=== PATIENT | female | born 1940 | race Asian ===

== ENCOUNTER → 2020-06-21 08:53 | Outpatient (CLI) | payer MEDICARE, MEDICAID, SELFPAY ==
[2020-06-21 09:45] LABS: Hemoglobin A1C% w Est Avg Glu 6.2 % (4.0-6.0)
[2020-06-21 10:16] LABS: Cholesterol 207 mg/dL (140-199); HDL Cholesterol 40 mg/dL (40-60); LDL Cholesterol Calculated 110 mg/dL (<100); Triglycerides 287 mg/dL (35-150)
== END ==
PROVIDERS: PCP Family Medicine; Referring Provider Family Medicine; Visit Provider Family Medicine
DX: E78.5 Hyperlipidemia, unspecified (principal); R73.9 Hyperglycemia, unspecified
CPT/HCPCS: 36415; 80061; 83036

== ENCOUNTER → 2020-07-17 09:39 | Outpatient (CLI) | payer MEDICARE, MEDICAID, SELFPAY | PROVIDERS: PCP Family Medicine; Referring Provider Family Medicine; Visit Provider Family Medicine | DX: M81.0 Age-related osteoporosis without current pathological fracture (principal); Z78.0 Asymptomatic menopausal state | CPT/HCPCS: 77080 ==

== ENCOUNTER → 2021-03-07 09:18 | Outpatient (CLI) | payer MEDICARE, MEDICAID, SELFPAY ==
[2021-03-07 09:29] LABS: Bacteria Urine None Seen; RBC Urine None Seen (0-5/HPF)
[2021-03-07 10:27] LABS: Appearance Urine UA CLEAR; Bilirubin Urine UA NEGATIVE (NEGATIVE); Color Urine UA YELLOW; Glucose Urine UA NEGATIVE (Negative); Ketones Urine UA NEGATIVE (NEGATIVE); Leukocyte Esterase Urine UA TRACE (NEGATIVE); Nitrite Urine UA NEGATIVE (Negative); Occult Blood Urine UA TRACE-LYSED (Negative); Protein Urine UA NEGATIVE (Negative); Specific Gravity Urine UA <=1.005 (1.000-1.035); Urobilinogen Urine UA 0.2 E.U./dL (0.2)
[2021-03-07 10:30] LABS: WBC Urine 5-10/HPF (0-5/HPF)
[2021-03-07 10:31] LABS: Amorphous Sediment Urine 1+; Culture Indicated Urine Specimen Cultured
[2021-03-07 10:32] LABS: Add Manual Diff / Slide Review NO; Basophils Absolute Auto 0 /uL (0-100); Basophils Percent Auto 1.1 % (0-2); Eosinophils Absolute Auto 0 /uL (0-450); Hematocrit 40.3 % (36-46); Hemoglobin 13.2 g/dL (12.0-16.0); Lymphocytes Absolute Auto 1300 /uL (1100-4500); Lymphocytes Percent Auto 31.2 % (25-40); Mean Corpuscular HGB Conc 32.6 % (30-36); Mean Corpuscular Hemoglobin 29.8 PG (26-34); Mean Corpuscular Volume 91.4 fL (80-100); Monocytes Absolute Auto 300 /uL (0-900); Monocytes Percent Auto 6.8 % (3-14); Neutrophils Absolute Auto 2500 /uL (1500-7000); Neutrophils Percent Auto 59.9 % (50-75); Platelet Count 313 X10^3/uL (150-400); Red Blood Cell Count 4.41 X10^6/uL (4.0-5.2); Red Cell Distribution Width 13.3 % (11.6-14.8); White Blood Cell Count 4.2 X10^3/uL (4.5-11.0)
[2021-03-07 11:03] LABS: Alanine Aminotransferase 14 IU/L (<35); Albumin 4.5 g/dL (3.5-5.0); Albumin Globulin Ratio 1.6 (1.0-2.8); Alkaline Phosphatase 52 U/L (38-126); Aspartate Aminotransferase 26 IU/L (14-36); BUN Creatinine Ratio 20.7 (6-22); Bilirubin Total 0.4 mg/dL (0.2-1.3); Blood Urea Nitrogen 12 mg/dL (7-17); Calcium 9.8 mg/dL (8.4-10.2); Carbon Dioxide 27 mmol/L (22-32); Chloride 105 mmol/L (98-107); Estimated Glomerular Filt Rate > 60.0 mL/min (>60); Globulin 2.8 g/dL (1.7-4.1); Glucose 130 mg/dL (80-110); HEMOLYSIS < 15 (0-50); Potassium 4.5 mmol/L (3.4-5.1); Sodium 139 mmol/L (137-145); Total Protein 7.3 g/dL (6.3-8.2)
== END ==
PROVIDERS: PCP Family Medicine; Referring Provider Family Medicine; Visit Provider Family Medicine
DX: M47.816 Spondylosis without myelopathy or radiculopathy, lumbar region (principal); R73.9 Hyperglycemia, unspecified; R29.6 Repeated falls
CPT/HCPCS: 36415; 80053; 81001; 85025; 87086

== ENCOUNTER → 2021-03-12 18:37 | Outpatient (CLI) | payer MEDICARE, MEDICAID, SELFPAY ==
--- NOTE | 2021-03-12 18:39 | DI.MRI.S_ITS ---
PROCEDURE: MR HEAD/BRAIN WO CON INDICATIONS: frequent falls, dizziness and memory loss TECHNIQUE: Non-contrast axial T1 spin echo, axial T2 fast spin echo, sagittal and axial FLAIR, coronal T2 fast spin echo, axial gradient echo, axial diffusion and ADC through the brain. COMPARISON: [facility], CT, HEAD WITHOUT CONTRAST, 11/02/2009, 8:11. FINDINGS: Image quality: Excellent. CSF spaces: Generalized ventriculomegaly slightly out of proportion to sulcal widening. Basal cisterns are patent. No extra-axial fluid collections. Brain: No intracranial bleeds or mass effects. There is cerebral volume loss for age. There are periventricular and subcortical white matter chronic small vessel ischemic changes. Brainstem appears normal. Diffusion-weighted images show no acute ischemic insults. No chronic ischemic insults. Normal intravascular flow voids are present. Skull and face: Calvarial bone marrow is normal in signal. Orbits are normal. Bilateral intraocular lens replacements noted. Sinuses: Sinuses and mastoids are clear. IMPRESSION: Moderate ventriculomegaly out of proportion to degree of cerebral atrophy, increased from the prior. Differential would include centralized atrophy and normal pressure hydrocephalus. If clinically relevant, consider additional confirmatory testing. Approved by: Gen Puetnes M.D. on 03/13/2021 at 11:50
== END ==
PROVIDERS: PCP Family Medicine; Referring Provider Family Medicine; Visit Provider Family Medicine
DX: R42 Dizziness and giddiness (principal); R41.3 Other amnesia; G93.89 Other specified disorders of brain; R29.6 Repeated falls; M47.816 Spondylosis without myelopathy or radiculopathy, lumbar region; R26.89 Other abnormalities of gait and mobility
CPT/HCPCS: 70551

== ENCOUNTER → 2022-02-28 19:20 | Outpatient (CLI) | payer MEDICARE, MEDICAID, SELFPAY ==
--- NOTE | 2022-02-28 19:23 | DI.MRI.S_ITS ---
PROCEDURE: MR CERVICAL SPINE WO CON INDICATIONS: IMPAIRED GAIT AND MOBILITY/URINARY URGENCY TECHNIQUE: Noncontrast sagittal T1 spin echo and T2 fast spin echo, sagittal STIR, foraminal oblique sagittal T2 fast spin echo, and axial gradient echo or T2 fast spin echo through the cervical spine. COMPARISON: None. FINDINGS: Image quality: Excellent. Alignment and Curvature: There is normal bony alignment. Bone Marrow: Marrow demonstrates normal overall signal. Spinal Cord: Visualized spinal cord has normal size and signal. No cerebellar tonsillar herniation. Paraspinous Soft Tissues: No paravertebral masses. Prevertebral soft tissues are normal in thickness. C2-C3: No canal stenosis. Bilateral facet hypertrophy. Mild bilateral foraminal narrowing. C3-C4: No canal stenosis. Left facet hypertrophy. Mild left foraminal narrowing. C4-C5: Mild disc bulge abutting the cord without canal stenosis. Left facet hypertrophy. Rpad-[id number]-[id number] left foraminal narrowing. C5-C6: Moderate diffuse broad-based disc protrusion flattening the cord. Moderate canal stenosis. Mild left uncovertebral joint hypertrophy. Left facet hypertrophy. Mild to moderate left foraminal narrowing. C6-C7: Disc bulge. No significant canal stenosis. Mild bilateral uncovertebral joint hypertrophy. Left facet hypertrophy. Mild left foraminal narrowing. C7-T1: No canal stenosis or foraminal stenosis. IMPRESSION: 1. 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 2. At C5-C6, there is a moderate diffuse broad-based disc protrusion flattening the cord with moderate canal stenosis. Dictated by: Ervin Cervantes M.D. on 03/01/2022 at 14:30 Approved by: Ervin Cervantes M.D. on 03/01/2022 at 14:39
== END ==
PROVIDERS: PCP Family Medicine; Referring Provider Psychiatry & Neurology Neurology; Visit Provider Psychiatry & Neurology Neurology
DX: M50.222 Other cervical disc displacement at C5-C6 level (principal); M48.02 Spinal stenosis, cervical region; M47.812 Spondylosis without myelopathy or radiculopathy, cervical region; R26.89 Other abnormalities of gait and mobility; R39.15 Urgency of urination
CPT/HCPCS: 72141

== ENCOUNTER → 2022-10-31 09:56 | Outpatient (CLI) | payer MEDICARE, MEDICAID, SELFPAY ==
[2022-10-31 11:00] LABS: Add Manual Diff / Slide Review NO; Basophils Absolute Auto 0 /uL (0-100); Eosinophils Absolute Auto 100 /uL (0-450); Eosinophils Percent Auto 1.8 % (2-4); Hematocrit 40.4 % (36-46); Hemoglobin 13.7 g/dL (12.0-16.0); Lymphocytes Absolute Auto 1800 /uL (1100-4500); Lymphocytes Percent Auto 39.9 % (25-40); Mean Corpuscular Hemoglobin 31.1 PG (26-34); Mean Corpuscular Volume 91.5 fL (80-100); Monocytes Absolute Auto 300 /uL (0-900); Monocytes Percent Auto 6.4 % (3-14); Neutrophils Absolute Auto 2200 /uL (1500-7000); Neutrophils Percent Auto 50.9 % (50-75); Platelet Count 298 X10^3/uL (150-400); Red Blood Cell Count 4.42 X10^6/uL (4.0-5.2); Red Cell Distribution Width 13.7 % (11.6-14.8); White Blood Cell Count 4.4 X10^3/uL (4.5-11.0)
[2022-10-31 11:32] LABS: Alanine Aminotransferase 15 IU/L (<35); Albumin 4.8 g/dL (3.5-5.0); Albumin Globulin Ratio 1.5 (1.0-2.8); Alkaline Phosphatase 49 U/L (38-126); Aspartate Aminotransferase 21 IU/L (14-36); BUN Creatinine Ratio 25.4 (6-22); Bilirubin Total 0.3 mg/dL (0.2-1.3); Blood Urea Nitrogen 15 mg/dL (7-17); Calcium 9.3 mg/dL (8.4-10.2); Carbon Dioxide 30 mmol/L (22-32); Chloride 101 mmol/L (98-107); Cholesterol 240 mg/dL (140-199); Estimated Glomerular Filt Rate > 60 mL/min (>60); Globulin 3.1 g/dL (1.7-4.1); Glucose 116 mg/dL (80-110); HDL Cholesterol 51 mg/dL (40-60); HEMOLYSIS < 15 (0-50); LDL Cholesterol Calculated 155 mg/dL (<100); Potassium 4.5 mmol/L (3.4-5.1); Sodium 139 mmol/L (137-145); Total Protein 7.9 g/dL (6.3-8.2); Triglycerides 170 mg/dL (35-150)
[2022-10-31 12:02] LABS: TSH w/ Reflex to FT4 1.39 uIU/mL (0.47-4.68)
[2022-11-01 06:10] LABS: Labcorp Hemoglobin (Hb) A1c 6.2 % (4.8-5.6)
== END ==
PROVIDERS: Family Provider Family Medicine; PCP Family Medicine; Referring Provider Family Medicine; Visit Provider Family Medicine
DX: E78.5 Hyperlipidemia, unspecified (principal); G91.2 (Idiopathic) normal pressure hydrocephalus; M47.816 Spondylosis without myelopathy or radiculopathy, lumbar region; R73.9 Hyperglycemia, unspecified
CPT/HCPCS: 36415; 80053; 80061; 83036; 84443; 85025

== ENCOUNTER 2022-12-10 09:00 | Outpatient (RCR) | payer MEDICARE, MEDICAID, SELFPAY ==
--- NOTE | 2022-05-14 19:10 | PT.OIE ---
Current Diagnoses Other specified disorders of brain (05/14/22) Pain in left knee (05/14/22) Muscle weakness (generalized) (05/14/22) Other abnormalities of gait and mobility (05/14/22) Repeated falls (05/14/22) Past Medical History (Last Updated 09/24/21 @ 15:54 by Oli Victoria MD) Cerebral ventriculomegaly Chronic GERD (~1999) Excessive daytime sleepiness Falls frequently Hearing loss (~2004) Helicobacter pylori (H. pylori) (~2016) Hyperglycemia Hyperlipidemia Imbalance Leg pain (~1979) Osteoarthritis of lumbar spine (~2004) Osteopenia Snoring Vertigo (~2010) Past Surgical History (Last Reviewed 06/19/20 @ 09:16 by Oli Victoria MD) Anesthesia History of cataract removal with insertion of prosthetic lens (~01/2005) Visit Care Team Role Provider Type Oli Victoria MD Attending Provider Physician Family Provider Primary Care Provider Referring Provider Specialty: Family Practice Address: [address] [place] [address] Email: [email or web address] Physical Therapy Initial Evaluation PT-OP-A Visit Information Start: 05/09/22 19:03 Freq: Status: Active Protocol: Document 05/14/22 09:50 LRN (Rec: 05/14/22 12:37 LRN [id number]) Out-Patient Physical Therapy Visit Information Visit Information Visit Type Initial Evaluation Visit Start Time 09:50 Visit Stop Time 10:40 Total Visit Minutes 50 Visit Number Evaluation Information Evaluation Date 05/14/22 Precautions Precautions s/p BEEKEEPER (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 PT-OP-B Current Condition Start: 05/09/22 19:03 Freq: Status: Active Protocol: Document 05/14/22 09:50 LRN (Rec: 05/14/22 12:37 LRN [id number]) Current Condition History of Current Condition Onset Date 03/04/22 Current Complaints Balance problem and weakness in LE's and low endurance History of Current Condition Surgery at for Ventriculoperitoneal (BEEKEEPER) shunt 03/04/22. Overnight hospitalization, then home. Has been walking around the house a couple times a day. Used to walk from home (near high school) to [employer] 4 yrs ago. Pt used to take care of house and yardwork, but not able to yet. She is walking at home around the house, touching/holding onto things for balance. Pt is walking outside by herself with a single point cane. Daughter states prior to surgery she had a magnet shuffling- Parkingson's type gait, but not since surgery. She used to fall 3x/week, but since her surgery has fallen 3 times, but balance is much improved and speed of walking has improved since surgery. Her neurologist at [facility] and at recommended physical therapy. PCP started referral. CARO was nurse practitioner at ER and now is a nurse in ER ([employer]). Works 3 -4x/weeks, therefore pt stays by self when DA works. DA is leaving State for reserve work 05/25-06/24; therefore the pt will be going to stay with her other daughter out of state. Prior Treatments and Tests None. Future Testing and Treatments Planned Dr. Kirk f/u visit @ . No future appts with PCP. Developmental History Developmental History Attended [facility] until end of February 2022 due to falls, then insurance changed. Was falling frequently prior to surgery and since surgery has fallen 3x. DA reports pt has pain in L back and L medial knee pain from previous falls (L knee pain from landing on the knee from slipping on leaves outside). Treatment Goals Patient/Caregiver Goals Pt goals per DA interpretation : - Better balance not LOB on stairs, and - Falling no more than (was 3x /week) once per month with use of assistive device as needed . - Squat (as her L knee pain allows) to reaching for low items without falling. - Join [employer] for exercise. - Walking around home without holding onto the jarrell. Prior Functional Status Baseline Function- ADL's Modified Independent Baseline Function- Mobility Modified Independent Baseline Function- Gait Walked with Hortencia Baseline Function- Other Fell 3-4x/week. Current Functional Impairments (Reported) Functional Limitations- ADL's Ambulates 15 stairs to get to bedroom using railing on both sides (except 20 ft no railing ). Has fallen down stairs ( holding her dog, who is now ). Walking around the house holding onto things Walkiing outside with SPC on concrete with a little incline ~ 1 blocks. Functional Limitations- Mobility/Gait Independent ADLs. Personal Factors Other Personal Factors That May Effect Pt qawalangin language is Setswana. Therapy/Recovery Daughter (CARO) is her wire winding machine tender. Pt lives with CARO who works 8- 12 hour days on bundle helper and is alone when DA. Pt walks alone with SPC, no life alert. Pt has fallen down stairs backwards when using stairs with carrying objects in hands . PT-OP-C Subjective Start: 05/09/22 19:03 Freq: Status: Active Protocol: Document 05/14/22 09:50 LRN (Rec: 05/14/22 12:37 LRN [id number]) Patient Questionnaires ABC- Activity Specific Balance Confidence Scale ABC Score 54.375 ABC Functional Impairment 40 to <60% Impaired (Score 41- 60) Dizziness Handicap Inventory DHI Score 196 DHI Functional Impairment 100% Impaired (Score 100) OP-PT Pain Assessment Pain Assessment Grid Paper Pain Assessment Grid Completed Yes Location L Upper Back Pain Location Details L upper back sub scap and posterior lateral trunk Intensity 4 Scale Used Numeric (0 - 10) PT-OP-D Balance Start: 05/09/22 19:03 Freq: Status: Active Protocol: Document 05/14/22 09:50 LRN (Rec: 05/14/22 12:37 LRN [id number]) Joshi Balance Assessment Evaluation Sitting to Standing Ability Independent w/out Hands Unsupported Stance Safely- 2 minutes Sitting Unsupported, Feet on Floor Safely- 2 minutes Standing to Sitting Ability Safely, Minimal Hand Use Transfer Ability Safely, Minimal Hand Use Unsupported Stance- Eyes Closed Safely, 10 seconds Unsupported Stance- Eyes Open Independent, 1 minute Reaching Forward Standing Safely, 5 inches Pick- Up Object From Floor Independent/Safe Look Behind Shoulder - Standing Shifts Weight Unilateral Turning 360 Degrees Turns slowly, but safely Unsupported Stance, Alternating Feet on (I)- 8 Steps in > 20 secs Stair Unsupported Tandem Stance Balance Lost- Step/Stand Unilateral Leg Stance Lifts Leg/Unable to Hold Total Score Joshi Total Score (out of 56 points) 44 Joshi Impairment Rating 20 to 39% Impaired (Score 34- 44) PT-OP-E Functional Tests Start: 05/09/22 19:03 Freq: Status: Active Protocol: Document 05/14/22 09:50 LRN (Rec: 05/14/22 12:37 LRN [id number]) Functional Tests 30 Second Sit to Stand Test Score 7x Comments Norm for 80-84 yo women is 9- 14x. Five Times Sit to Stand Test Score 12 Comments Norm for 80-89 yo's is 14.8 secs. Fall risk if > or = 12 secs PT-OP-G Mobility & Gait Start: 05/09/22 19:03 Freq: Status: Active Protocol: Document 05/14/22 09:50 LRN (Rec: 05/14/22 12:37 LRN [id number]) OP Mobility Evaluation Bed Mobility Supine to and from Sit Independent. PT-OP-H Neuro Start: 05/09/22 19:03 Freq: Status: Active Protocol: Document 05/14/22 09:50 LRN (Rec: 05/14/22 12:37 LRN [id number]) Sensation Evaluation Gross Sensation Gross Sensation WNL PT-OP-M Strength Start: 05/09/22 19:03 Freq: Status: Active Protocol: Document 05/14/22 09:50 LRN (Rec: 05/14/22 12:37 LRN [id number]) Knee Strength Knee Manual Muscle Testing Right Flexion (S2) 3+ Fair+ Extension (L3) 3 Fair Left Flexion (S2) 3 Fair Extension (L3) 4+ Good+ Comments L knee had previous injury Ankle/Foot Strength Ankle and Foot Manual Muscle Testing Right Dorsiflexion (L4) 3 Fair Plantarflexion (S1) 5 Normal Inversion 3 Fair Eversion (S1) 4 Good Left Dorsiflexion (L4) 3 Fair Plantarflexion (S1) 5 Normal Inversion 3 Fair Eversion (S1) 5 Normal PT-OP-Q Treatments Start: 05/09/22 19:03 Freq: Status: Active Protocol: Document 05/14/22 09:50 LRN (Rec: 05/14/22 12:37 LRN [id number]) Self-Care/Home Management Treatment Education Caregiver Education Discussed use of possible life line for pt care. Other Education Discussed results of evaluation, goals, and plan of care (POC). Pt agreeable to goals and POC. PT-OP-T Assessment and Plan Start: 05/09/22 19:03 Freq: Status: Active Protocol: Document 05/14/22 09:50 LRN (Rec: 05/14/22 12:37 LRN [id number]) Physical Therapy Assessment Rehab Potential Rehabilitation Potential Good Evaluation Complexity Number of Personal Factors/Comorbidities 1-2 Number of Body Systems Impaired 3 Clinical Presentation at Evaluation Evolving Impairments Impairments Activity Tolerance,Balance, Gait,Strength Goals Four Impairment Decreased safety with gait Impairment 5XSTS in 12 secs (fall risk >= 12 secs, norm for 80-89 yo's is 14.8 secs) TUG - to be assessed next visit (avg for 80-89 yo women is 17.2 secs) Gait speed - to be assessed next visit. Short Term Goal (STG) Improve 5XSTS score or TUG score <14 secs, indicating decreased risk of falls. STG Duration 06/30/22 Longterm Goal (LTG) Improve gait speed for safe community ambulation 2.62-3.94 ft/sec (safe to cross street gait speed of >3.9 ft/sec). LTG Duration 08/12/22 Three Impairment Balance Impairment Initial Joshi Balance Score - 44 (20-39% impaired, score 34- 44) Initial: Pt falling 3x/week or 3x/month. Short Term Goal (STG) Pt will improve balance as noted with no LOB on stairs STG Duration 06/30/22 Longterm Goal (LTG) Improve balance per Joshi Balance score >44 (1-19% impaired, score 45-55), with pt falling no more than (was 3x/week) or no more than 1x/ month with use of assistive device. LTG Duration 08/12/22 Two Impairment Decreased LE Strength/ decreased endurance Impairment Initial 30 sec chair stand is 7x (norm for 80-84 yo women is 9-14 times) Short Term Goal (STG) Improve 30 sec Chair Stand test to 9x, with pt able to walking around her home without holding onto the jarrell . STG Duration 06/30/22 Longterm Goal (LTG) Pt will be able to join [employer] [facility] for an exercise program. LTG Duration 08/12/22 One Impairment Decreased function per ABC & DHI score Impairment ABC score 54.375 (40 <60% impaired, score 41-60) Dizziness Questionnaire 196 ( 100% impaired, score 100 or more) Short Term Goal (STG) Pt will be able to Squat (as her L knee pain allows) to reaching for low items without falling. STG Duration 06/30/22 Longterm Goal (LTG) Improve function per ABC score >80 (1<20% impaired, score 81 -99). LTG Duration 08/12/22 Assessment Summary Assessment Pt presents with significant decreased in functional ability, decreased balance/ gait and decreased LE strength . The pt's qawalangin language is Setswana; therefore her daughter will act as wire winding machine tender for therapy, and because of her not able to attend therapy in 2 months, her progress is expected to be hindered and will most likely take longer than normal. The pt will benefit from skilled physical therapy to achieve the above stated goals. Physical Therapy Plan Frequency and Duration Frequency of Treatment 2x/Week Plan of Care Start Date 05/14/22 Plan of Care End Date 08/12/22 Therapeutic Interventions Therapeutic Interventions Balance Training,Gait Training ,Home Exercise Program, Neuromuscular Re-education, Patient/Caregiver Education, Self-Care/Home Management, Therapeutic Activities, Therapeutic Exercises Modalities Cold Pack/Ice Massage Next Visit Focus/Plan Next Note Type Treatment Note Next Visit Plan Assess Gait speed, TUG, hip strength and assess transfers for dizziness or vertigo and facilitate vestibular assessment if needed. Initiate LE strengthening for HEP and endurance strengthening. Pt/Caregiver education for HEP. L knee rehab, Balance, gait and stair training/strengthening for safety.
--- NOTE | 2022-05-14 19:10 | PT.OPPOC ---
Physical, Occupational & Speech Therapy At [facility] Current Diagnoses Other specified disorders of brain (05/14/22) Pain in left knee (05/14/22) Muscle weakness (generalized) (05/14/22) Other abnormalities of gait and mobility (05/14/22) Repeated falls (05/14/22) Visit Care Team Role Provider Type Oli Victoria MD Attending Provider Physician Family Provider Primary Care Provider Referring Provider Specialty: [facility] Address: [address] [place] [address] Email: [email or web address] Plan Of Care PT-OP-T Assessment and Plan Start: 05/09/22 19:03 Freq: Status: Active Protocol: Document 05/14/22 09:50 LRN (Rec: 05/14/22 12:37 LRN [id number]) Physical Therapy Assessment Rehab Potential Rehabilitation Potential Good Evaluation Complexity Number of Personal Factors/Comorbidities 1-2 Number of Body Systems Impaired 3 Clinical Presentation at Evaluation Evolving Impairments Impairments Activity Tolerance,Balance, Gait,Strength Goals Four Impairment Decreased safety with gait Impairment 5XSTS in 12 secs (fall risk >= 12 secs, norm for 80-89 yo's is 14.8 secs) TUG - to be assessed next visit (avg for 80-89 yo women is 17.2 secs) Gait speed - to be assessed next visit. Short Term Goal (STG) Improve 5XSTS score or TUG score <14 secs, indicating decreased risk of falls. STG Duration 06/30/22 [facility] Goal (LTG) Improve gait speed for safe community ambulation 2.62-3.94 ft/sec (safe to cross street gait speed of >3.9 ft/sec). LTG Duration 08/12/22 Three Impairment Balance Impairment Initial Joshi Balance Score - 44 (20-39% impaired, score 34- 44) Initial: Pt falling 3x/week or 3x/month. Short Term Goal (STG) Pt will improve balance as noted with no LOB on stairs STG Duration 06/30/22 Ceramic Capacitor Processor Goal (LTG) Improve balance per Joshi Balance score >44 (1-19% impaired, score 45-55), with pt falling no more than (was 3x/week) or no more than 1x/ month with use of assistive device. LTG Duration 08/12/22 Two Impairment Decreased LE Strength/ decreased endurance Impairment Initial 30 sec chair stand is 7x (norm for 80-84 yo women is 9-14 times) Short Term Goal (STG) Improve 30 sec Chair Stand test to 9x, with pt able to walking around her home without holding onto the jarrell . STG Duration 06/30/22 [facility] Goal (LTG) Pt will be able to join [employer] for an exercise program. LTG Duration 08/12/22 One Impairment Decreased function per ABC & DHI score Impairment ABC score 54.375 (40 <60% impaired, score 41-60) Dizziness Questionnaire 196 ( 100% impaired, score 100 or more) Short Term Goal (STG) Pt will be able to Squat (as her L knee pain allows) to reaching for low items without falling. STG Duration 06/30/22 Ceramic Capacitor Processor Goal (LTG) Improve function per ABC score >80 (1<20% impaired, score 81 -99). LTG Duration 08/12/22 Assessment Summary Assessment Pt presents with significant decreased in functional ability, decreased balance/ gait and decreased LE strength . The pt's pamunkey language is Kinyarwanda; therefore her daughter will act as junior accounting clerk for therapy, and because of her not able to attend therapy in 2 months, her progress is expected to be hindered and will most likely take longer than normal. The pt will benefit from skilled physical therapy to achieve the above stated goals. Physical Therapy Plan Frequency and Duration Frequency of Treatment 2x/Week Plan of Care Start Date 05/14/22 Plan of Care End Date 08/12/22 Therapeutic Interventions Therapeutic Interventions Balance Training,Gait Training ,Home Exercise Program, Neuromuscular Re-education, Patient/Caregiver Education, Self-Care/Home Management, Therapeutic Activities, Therapeutic Exercises Modalities Cold Pack/Ice Massage Next Visit Focus/Plan Next Note Type Treatment Note Next Visit Plan Assess Gait speed, TUG, hip strength and assess transfers for dizziness or vertigo and facilitate vestibular assessment if needed. Initiate LE strengthening for HEP and endurance strengthening. Pt/Caregiver education for HEP. L knee rehab, Balance, gait and stair training/strengthening for safety. Plan of Care Dates Plan of Care Start Date 05/14/22 Plan of Care End Date 08/12/22 Electronically Signed by: Judy Mc, PT 05/14/22 1910 If you are in agreement with this Plan of Care, please return a signed and dated copy. I have reviewed this Plan of Care and certify that the skilled therapy services above are required to meet the patient?s needs. Physician Signature Date Printed Name and Credentials Clinical Instructor Signature Printed Name and Credentials
--- NOTE | 2022-05-17 15:19 | PT.OTN ---
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) Pain in left knee (05/17/22) Muscle weakness (generalized) (05/17/22) Other abnormalities of gait and mobility (05/17/22) Repeated falls (05/17/22) Physical Therapy Treatment Note PT-OP-A Visit Information Start: 05/09/22 19:03 Freq: Status: Active Protocol: Document 05/17/22 09:50 LRN (Rec: 05/17/22 10:33 LRN [id number]) Out-Patient Physical Therapy Visit Information Visit Information Visit Type Initial Evaluation Visit Start Time 09:50 Visit Stop Time 10:30 Total Visit Minutes 40 Visit Number Evaluation Information Evaluation Date 05/14/22 Precautions Precautions s/p THERAPIST RRT (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 PT-OP-B Current Condition Start: 05/09/22 19:03 Freq: Status: Active Protocol: Document 05/14/22 09:50 LRN (Rec: 05/14/22 12:37 LRN [id number]) Current Condition History of Current Condition Onset Date 03/04/22 Current Complaints Balance problem and weakness in LE's and low endurance History of Current Condition Surgery at for Ventriculoperitoneal (THERAPIST RRT) shunt 03/04/22. Overnight hospitalization, then home. Has been walking around the house a couple times a day. Used to walk from home (near high school) to [employer] 4 yrs ago. Pt used to take care of house and yardwork, but not able to yet. She is walking at home around the house, touching/holding onto things for balance. Pt is walking outside by herself with a single point cane. Daughter states prior to surgery she had a magnet shuffling- Parkingson's type gait, but not since surgery. She used to fall 3x/week, but since her surgery has fallen 3 times, but balance is much improved and speed of walking has improved since surgery. Her neurologist at [facility] and at recommended physical therapy. PCP started referral. CARO was nurse practitioner at ER and now is a nurse in ER (PACU). Works 3 -4x/weeks, therefore pt stays by self when DA works. DA is leaving State for reserve work 05/25-06/24; therefore the pt will be going to stay with her other daughter out of state. Prior Treatments and Tests None. Future Testing and Treatments Planned Dr. Kirk f/u visit @ . No future appts with PCP. Developmental History Developmental History Attended [facility] until end of February 2022 due to falls, then insurance changed. Was falling frequently prior to surgery and since surgery has fallen 3x. DA reports pt has pain in L back and L medial knee pain from previous falls (L knee pain from landing on the knee from slipping on leaves outside). Treatment Goals Patient/Caregiver Goals Pt goals per DA interpretation : - Better balance not LOB on stairs, and - Falling no more than (was 3x /week) once per month with use of assistive device as needed . - Squat (as her L knee pain allows) to reaching for low items without falling. - Join [email or web address] for exercise. - Walking around home without holding onto the jarrell. Prior Functional Status Baseline Function- ADL's Modified Independent Baseline Function- Mobility Modified Independent Baseline Function- Gait Walked with Hortencia Baseline Function- Other Fell 3-4x/week. Current Functional Impairments (Reported) Functional Limitations- ADL's Ambulates 15 stairs to get to bedroom using railing on both sides (except 20 ft no railing ). Has fallen down stairs ( holding her dog, who is now ). Walking around the house holding onto things Walkiing outside with SPC on concrete with a little incline ~ 1 blocks. Functional Limitations- Mobility/Gait Independent ADLs. Personal Factors Other Personal Factors That May Effect Pt ak chin language is Occitan. Therapy/Recovery Daughter (CARO) is her emergency room registered nurse. Pt lives with CARO who works 8- 12 hour days on copy lathe operator and is alone when DA. Pt walks alone with SPC, no life alert. Pt has fallen down stairs backwards when using stairs with carrying objects in hands . PT-OP-C Subjective Start: 05/09/22 19:03 Freq: Status: Active Protocol: Document 05/17/22 09:50 LRN (Rec: 05/17/22 10:33 LRN [id number]) OP-PT Subjective Patient Comments Patient Comments DA states her gait is improving. PT-OP-D Balance Start: 05/09/22 19:03 Freq: Status: Active Protocol: Document 05/14/22 09:50 LRN (Rec: 05/14/22 12:37 LRN [id number]) Joshi Balance Assessment Evaluation Sitting to Standing Ability Independent w/out Hands Unsupported Stance Safely- 2 minutes Sitting Unsupported, Feet on Floor Safely- 2 minutes Standing to Sitting Ability Safely, Minimal Hand Use Transfer Ability Safely, Minimal Hand Use Unsupported Stance- Eyes Closed Safely, 10 seconds Unsupported Stance- Eyes Open Independent, 1 minute Reaching Forward Standing Safely, 5 inches Pick- Up Object From Floor Independent/Safe Look Behind Shoulder - Standing Shifts Weight Unilateral Turning 360 Degrees Turns slowly, but safely Unsupported Stance, Alternating Feet on (I)- 8 Steps in > 20 secs Stair Unsupported Tandem Stance Balance Lost- Step/Stand Unilateral Leg Stance Lifts Leg/Unable to Hold Total Score Joshi Total Score (out of 56 points) 44 Joshi Impairment Rating 20 to 39% Impaired (Score 34- 44) PT-OP-E Functional Tests Start: 05/09/22 19:03 Freq: Status: Active Protocol: Document 05/17/22 09:50 LRN (Rec: 05/17/22 10:33 LRN [id number]) Functional Tests Other Gait Speed Name of Test Gait speed Score 20'/8 sec=2.5 ft/sec Comment 2.62-3.94 ft/sec for community gait speed PT-OP-G Mobility & Gait Start: 05/09/22 19:03 Freq: Status: Active Protocol: Document 05/14/22 09:50 LRN (Rec: 05/14/22 12:37 LRN [id number]) OP Mobility Evaluation Bed Mobility Supine to and from Sit Independent. PT-OP-H Neuro Start: 05/09/22 19:03 Freq: Status: Active Protocol: Document 05/14/22 09:50 LRN (Rec: 05/14/22 12:37 LRN [id number]) Sensation Evaluation Gross Sensation Gross Sensation WNL PT-OP-M Strength Start: 05/09/22 19:03 Freq: Status: Active Protocol: Document 05/14/22 09:50 LRN (Rec: 05/14/22 12:37 LRN [id number]) Knee Strength Knee Manual Muscle Testing Right Flexion (S2) 3+ Fair+ Extension (L3) 3 Fair Left Flexion (S2) 3 Fair Extension (L3) 4+ Good+ Comments L knee had previous injury Ankle/Foot Strength Ankle and Foot Manual Muscle Testing Right Dorsiflexion (L4) 3 Fair Plantarflexion (S1) 5 Normal Inversion 3 Fair Eversion (S1) 4 Good Left Dorsiflexion (L4) 3 Fair Plantarflexion (S1) 5 Normal Inversion 3 Fair Eversion (S1) 5 Normal PT-OP-Q Treatments Start: 05/09/22 19:03 Freq: Status: Active Protocol: Document 05/17/22 09:50 LRN (Rec: 05/17/22 10:33 LRN [id number]) Therapeutic Exercises Standing Exercises Steps Reps/Minutes 4 steps x 6 Comments Extra time for pt moving slowly and cautiously. Stepping around obstacles. Comments Pt sometimes tries to sidestep around cones, changes gait mildly. Stepping over obstacles Comments Pt adjusted step lengths to step over w/RLE Gait & pivot turn Reps/Minutes 2x Comments 3 Gait with looking up/down Reps/Minutes 25' x 4 Gait with horiz head turns Reps/Minutes 25' x 4 Gait with speed change Reps/Minutes 25' x 6 Gait 20' Reps/Minutes 25' x 4 PT-OP-T Assessment and Plan Start: 05/09/22 19:03 Freq: Status: Active Protocol: Document 05/17/22 09:50 LRN (Rec: 05/17/22 10:33 LRN [id number]) Physical Therapy Assessment Goals Four Impairment Decreased safety with gait Impairment 5XSTS in 12 secs (fall risk >= 12 secs, norm for 80-89 yo's is 14.8 secs) TUG - to be assessed next visit (avg for 80-89 yo women is 17.2 secs) Gait speed - to be assessed next visit. Short Term Goal (STG) Improve 5XSTS score or TUG score <14 secs, indicating decreased risk of falls. 05/17/22: TUG (2 trials) 19 & 15 secs. STG Duration 06/30/22 progressing 05/17/22. Roll Up Machine Operator Goal (LTG) Improve gait speed for safe community ambulation 2.62-3.94 ft/sec (safe to cross street gait speed of >3.9 ft/sec). 05/17/22: Gt speed is 2.5 ft/ sec. (: Gt speed 20'/8 = 2. 5 ft/sec) LTG Duration 08/12/22 Three Impairment Balance Impairment Initial Joshi Balance Score - 44 (20-39% impaired, score 34- 44) Initial: Pt falling 3x/week or 3x/month. Short Term Goal (STG) Pt will improve balance as noted with no LOB on stairs STG Duration 06/30/22 Roll Up Machine Operator Goal (LTG) Improve balance per Joshi Balance score >44 (1-19% impaired, score 45-55), with pt falling no more than (was 3x/week) or no more than 1x/ month with use of assistive device. LTG Duration 08/12/22 Two Impairment Decreased LE Strength/ decreased endurance Impairment Initial 30 sec chair stand is 7x (norm for 80-84 yo women is 9-14 times) Short Term Goal (STG) Improve 30 sec Chair Stand test to 9x, with pt able to walking around her home without holding onto the jarrell . STG Duration 06/30/22 Roll Up Machine Operator Goal (LTG) Pt will be able to join [employer] for an exercise program. LTG Duration 08/12/22 One Impairment Decreased function per ABC & DHI score Impairment ABC score 54.375 (40 <60% impaired, score 41-60) Dizziness Questionnaire 196 ( 100% impaired, score 100 or more) Short Term Goal (STG) Pt will be able to Squat (as her L knee pain allows) to reaching for low items without falling. STG Duration 06/30/22 Roll Up Machine Operator Goal (LTG) Improve function per ABC score >80 (1<20% impaired, score 81 -99). LTG Duration 08/12/22 Assessment Summary Assessment Pt presents at risk of falling with DGI score of <19. Pt's score was 14. She showed steadiness of gait, but balance uncertainty when SLS during stairs, stepping over objects and walking. She ambs with a fairly good gait speed of 2.5 ft/sec (2.62-3.94 ft/ sec for community gait speed ( to safely cross street, gait speed of >3.9 ft/sec). Physical Therapy Plan Frequency and Duration Frequency of Treatment 2x/Week Plan of Care Start Date 05/14/22 Plan of Care End Date 08/12/22 Next Visit Focus/Plan Next Note Type Treatment Note Next Visit Plan Assess hip strength and assess transfers for dizziness or vertigo and facilitate vestibular assessment if needed. Initiate LE strengthening for HEP and endurance strengthening. Pt/ Caregiver education for HEP. L knee rehab, Balance, gait and stair training/ strengthening for safety.
--- NOTE | 2022-05-21 17:45 | PT.OTN ---
Current Diagnoses Other specified disorders of brain (05/21/22) Pain in left knee (05/21/22) Muscle weakness (generalized) (05/21/22) Other abnormalities of gait and mobility (05/21/22) Repeated falls (05/21/22) Physical Therapy Treatment Note PT-OP-A Visit Information Start: 05/09/22 19:03 Freq: Status: Active Protocol: Document 05/21/22 09:03 LRN (Rec: 05/21/22 09:49 LRN [id number]) Out-Patient Physical Therapy Visit Information Visit Information Visit Type Treatment Note Visit Note DA present to interpret Visit Start Time 09:03 Visit Stop Time 09:43 Total Visit Minutes 40 Visit Number Evaluation Information Evaluation Date 05/14/22 Precautions Precautions s/p BODILY INJURY ADJUSTER (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 PT-OP-B Current Condition Start: 05/09/22 19:03 Freq: Status: Active Protocol: Document 05/14/22 09:50 LRN (Rec: 05/14/22 12:37 LRN [id number]) Current Condition History of Current Condition Onset Date 03/04/22 Current Complaints Balance problem and weakness in LE's and low endurance History of Current Condition Surgery at for Ventriculoperitoneal (BODILY INJURY ADJUSTER) shunt 03/04/22. Overnight hospitalization, then home. Has been walking around the house a couple times a day. Used to walk from home (near high school) to [employer] 4 yrs ago. Pt used to take care of house and yardwork, but not able to yet. She is walking at home around the house, touching/holding onto things for balance. Pt is walking outside by herself with a single point cane. Daughter states prior to surgery she had a magnet shuffling- Parkingson's type gait, but not since surgery. She used to fall 3x/week, but since her surgery has fallen 3 times, but balance is much improved and speed of walking has improved since surgery. Her neurologist at [facility] and at recommended physical therapy. PCP started referral. CARO was nurse practitioner at ER and now is a nurse in ER (PACU). Works 3 -4x/weeks, therefore pt stays by self when CARO works. CARO is leaving State for reserve work 05/25-06/24; therefore the pt will be going to stay with her other daughter out of state. Prior Treatments and Tests None. Future Testing and Treatments Planned Dr. Kirk f/u visit @ . No future appts with PCP. Developmental History Developmental History Attended [facility] until end of February 2022 due to falls, then insurance changed. Was falling frequently prior to surgery and since surgery has fallen 3x. DA reports pt has pain in L back and L medial knee pain from previous falls (L knee pain from landing on the knee from slipping on leaves outside). Treatment Goals Patient/Caregiver Goals Pt goals per DA interpretation : - Better balance not LOB on stairs, and - Falling no more than (was 3x /week) once per month with use of assistive device as needed . - Squat (as her L knee pain allows) to reaching for low items without falling. - Join [employer] for exercise. - Walking around home without holding onto the jarrell. Prior Functional Status Baseline Function- ADL's Modified Independent Baseline Function- Mobility Modified Independent Baseline Function- Gait Walked with Hortencia Baseline Function- Other Fell 3-4x/week. Current Functional Impairments (Reported) Functional Limitations- ADL's Ambulates 15 stairs to get to bedroom using railing on both sides (except 20 ft no railing ). Has fallen down stairs ( holding her dog, who is now ). Walking around the house holding onto things Walkiing outside with SPC on concrete with a little incline ~ 1 blocks. Functional Limitations- Mobility/Gait Independent ADLs. Personal Factors Other Personal Factors That May Effect Pt [place] language is Croatian. Therapy/Recovery Daughter (CARO) is her electrician station assistant. Pt lives with CARO who works 8- 12 hour days on rate supervisor and is alone when DA. Pt walks alone with SPC, no life alert. Pt has fallen down stairs backwards when using stairs with carrying objects in hands . PT-OP-C Subjective Start: 05/09/22 19:03 Freq: Status: Active Protocol: Document 05/21/22 09:03 LRN (Rec: 05/21/22 09:49 LRN [id number]) OP-PT Subjective Patient Comments Patient Comments Doing exercises at home. PT-OP-D Balance Start: 05/09/22 19:03 Freq: Status: Active Protocol: Document 05/14/22 09:50 LRN (Rec: 05/14/22 12:37 LRN [id number]) Joshi Balance Assessment Evaluation Sitting to Standing Ability Independent w/out Hands Unsupported Stance Safely- 2 minutes Sitting Unsupported, Feet on Floor Safely- 2 minutes Standing to Sitting Ability Safely, Minimal Hand Use Transfer Ability Safely, Minimal Hand Use Unsupported Stance- Eyes Closed Safely, 10 seconds Unsupported Stance- Eyes Open Independent, 1 minute Reaching Forward Standing Safely, 5 inches Pick- Up Object From Floor Independent/Safe Look Behind Shoulder - Standing Shifts Weight Unilateral Turning 360 Degrees Turns slowly, but safely Unsupported Stance, Alternating Feet on (I)- 8 Steps in > 20 secs Stair Unsupported Tandem Stance Balance Lost- Step/Stand Unilateral Leg Stance Lifts Leg/Unable to Hold Total Score Joshi Total Score (out of 56 points) 44 Joshi Impairment Rating 20 to 39% Impaired (Score 34- 44) PT-OP-E Functional Tests Start: 05/09/22 19:03 Freq: Status: Active Protocol: Document 05/17/22 09:50 LRN (Rec: 05/17/22 10:33 LRN [id number]) Functional Tests Other Gait Speed Name of Test Gait speed Score 20'/8 sec=2.5 ft/sec Comment 2.62-3.94 ft/sec for community gait speed PT-OP-G Mobility & Gait Start: 05/09/22 19:03 Freq: Status: Active Protocol: Document 05/14/22 09:50 LRN (Rec: 05/14/22 12:37 LRN [id number]) OP Mobility Evaluation Bed Mobility Supine to and from Sit Independent. PT-OP-H Neuro Start: 05/09/22 19:03 Freq: Status: Active Protocol: Document 05/14/22 09:50 LRN (Rec: 05/14/22 12:37 LRN [id number]) Sensation Evaluation Gross Sensation Gross Sensation WNL PT-OP-M Strength Start: 05/09/22 19:03 Freq: Status: Active Protocol: Document 05/21/22 09:03 LRN (Rec: 05/21/22 09:49 LRN [id number]) Hip Strength Hip Manual Muscle Testing Right Flexion (L2) 3 Fair Abduction 3 Fair Left Flexion (L2) 3 Fair Abduction 3 Fair PT-OP-Q Treatments Start: 05/09/22 19:03 Freq: Status: Active Protocol: Document 05/21/22 09:03 LRN (Rec: 05/21/22 09:49 LRN [id number]) Therapeutic Exercises Supine Exercises Bridgeing Supine Exercise Name Bridging Reps/Minutes 15x 2 Hip AB Supine Exercise Name Hip AB Side bilateral Reps/Minutes 15x Comments Extra time to train for proper mvmt, phys & v cuing needed SLR Supine Exercise Name SLR Side bilateral Reps/Minutes 15x 2 each Comments L side weaker Sidelying Exercises Clamshell Sidelying Exercise Name Clamshell Side bilateral Reps/Minutes 15' Comments Much cuing anabelle to keep in proper position with knee raise. Hip AB Sidelying Exercise Name Assisted Hip AB Side bilateral Reps/Minutes 6' Comments Pt not able to sustain sidelie for ex, she rolls backward Self-Care/Home Management Treatment Education Patient Education Home Exercise Program Activities Self-Care/Home Management Activities Issued & reviewed HEP: HIp strengthening of SLR, clamshell, sup hip AB & bridging. PT-OP-T Assessment and Plan Start: 05/09/22 19:03 Freq: Status: Active Protocol: Document 05/21/22 09:03 LRN (Rec: 05/21/22 09:49 LRN [id number]) Physical Therapy Assessment Goals Four Impairment Decreased safety with gait Impairment 5XSTS in 12 secs (fall risk >= 12 secs, norm for 80-89 yo's is 14.8 secs) TUG - to be assessed next visit (avg for 80-89 yo women is 17.2 secs) Gait speed - to be assessed next visit. Short Term Goal (STG) Improve 5XSTS score or TUG score <14 secs, indicating decreased risk of falls. 05/17/22: TUG (2 trials) 19 & 15 secs. STG Duration 06/30/22 progressing 05/17/22. Global Regulatory Affairs Manager Goal (LTG) Improve gait speed for safe community ambulation 2.62-3.94 ft/sec (safe to cross street gait speed of >3.9 ft/sec). 05/17/22: Gt speed is 2.5 ft/ sec. (: Gt speed 20'/8 = 2. 5 ft/sec) LTG Duration 08/12/22 Three Impairment Balance Impairment Initial Joshi Balance Score - 44 (20-39% impaired, score 34- 44) Initial: Pt falling 3x/week or 3x/month. Short Term Goal (STG) Pt will improve balance as noted with no LOB on stairs STG Duration 06/30/22 Shelter Goal (LTG) Improve balance per Joshi Balance score >44 (1-19% impaired, score 45-55), with pt falling no more than (was 3x/week) or no more than 1x/ month with use of assistive device. LTG Duration 08/12/22 Two Impairment Decreased LE Strength/ decreased endurance Impairment Initial 30 sec chair stand is 7x (norm for 80-84 yo women is 9-14 times) Short Term Goal (STG) Improve 30 sec Chair Stand test to 9x, with pt able to walking around her home without holding onto the jarrell . STG Duration 06/30/22 Global Regulatory Affairs Manager Goal (LTG) Pt will be able to join [employer] for an exercise program. LTG Duration 08/12/22 One Impairment Decreased function per ABC & DHI score Impairment ABC score 54.375 (40 <60% impaired, score 41-60) Dizziness Questionnaire 196 ( 100% impaired, score 100 or more) Short Term Goal (STG) Pt will be able to Squat (as her L knee pain allows) to reaching for low items without falling. STG Duration 06/30/22 Shelter Goal (LTG) Improve function per ABC score >80 (1<20% impaired, score 81 -99). LTG Duration 08/12/22 Assessment Summary Assessment Pt has general weakness in hips. L hip weaker than R hip . She is very compliant during ex's and listens well to DA instructions. Pt had dizziness rolling right to left and with supine to sit. Pt would benefit from 1-2 vestibular treatments for her dizziness. Physical Therapy Plan Frequency and Duration Frequency of Treatment 2x/Week Plan of Care Start Date 05/14/22 Plan of Care End Date 08/12/22 Next Visit Focus/Plan Next Note Type Treatment Note Next Visit Plan Assess hip strength (AD, IR/ER ). Add LE strengthening (AD, rot) for HEP and LE endurance strengthening. Cont pt/ Caregiver education for HEP. L knee rehab, Balance, gait and stair training/ strengthening for safety.
--- NOTE | 2022-05-24 13:05 | PT.OTN ---
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) Pain in left knee (05/24/22) Muscle weakness (generalized) (05/24/22) Other abnormalities of gait and mobility (05/24/22) Repeated falls (05/24/22) Physical Therapy Treatment Note PT-OP-A Visit Information Start: 05/09/22 19:03 Freq: Status: Active Protocol: Document 05/24/22 09:04 LRN (Rec: 05/24/22 09:49 LRN [id number]) Out-Patient Physical Therapy Visit Information Visit Information Visit Type Treatment Note Visit Note DA present to interpret Visit Start Time 09:04 Visit Stop Time 09:48 Total Visit Minutes 44 Visit Number Evaluation Information Evaluation Date 05/14/22 Precautions Precautions s/p MEMS DEVICE SCIENTIST (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 PT-OP-B Current Condition Start: 05/09/22 19:03 Freq: Status: Active Protocol: Document 05/14/22 09:50 LRN (Rec: 05/14/22 12:37 LRN [id number]) Current Condition History of Current Condition Onset Date 03/04/22 Current Complaints Balance problem and weakness in LE's and low endurance History of Current Condition Surgery at for Ventriculoperitoneal (MEMS DEVICE SCIENTIST) shunt 03/04/22. Overnight hospitalization, then home. Has been walking around the house a couple times a day. Used to walk from home (near high school) to [employer] 4 yrs ago. Pt used to take care of house and yardwork, but not able to yet. She is walking at home around the house, touching/holding onto things for balance. Pt is walking outside by herself with a single point cane. Daughter states prior to surgery she had a magnet shuffling- Parkingson's type gait, but not since surgery. She used to fall 3x/week, but since her surgery has fallen 3 times, but balance is much improved and speed of walking has improved since surgery. Her neurologist at [facility] and at recommended physical therapy. PCP started referral. CARO was nurse practitioner at ER and now is a nurse in ER (PACU). Works 3 -4x/weeks, therefore pt stays by self when CARO works. CARO is leaving State for reserve work 05/25-06/24; therefore the pt will be going to stay with her other daughter out of state. Prior Treatments and Tests None. Future Testing and Treatments Planned Dr. Kirk f/u visit @ . No future appts with PCP. Developmental History Developmental History Attended [facility] until end of February 2022 due to falls, then insurance changed. Was falling frequently prior to surgery and since surgery has fallen 3x. DA reports pt has pain in L back and L medial knee pain from previous falls (L knee pain from landing on the knee from slipping on leaves outside). Treatment Goals Patient/Caregiver Goals Pt goals per DA interpretation : - Better balance not LOB on stairs, and - Falling no more than (was 3x /week) once per month with use of assistive device as needed . - Squat (as her L knee pain allows) to reaching for low items without falling. - Join [employer] for exercise. - Walking around home without holding onto the jarrell. Prior Functional Status Baseline Function- ADL's Modified Independent Baseline Function- Mobility Modified Independent Baseline Function- Gait Walked with Hortencia Baseline Function- Other Fell 3-4x/week. Current Functional Impairments (Reported) Functional Limitations- ADL's Ambulates 15 stairs to get to bedroom using railing on both sides (except 20 ft no railing ). Has fallen down stairs ( holding her dog, who is now ). Walking around the house holding onto things Walkiing outside with SPC on concrete with a little incline ~ 1 blocks. Functional Limitations- Mobility/Gait Independent ADLs. Personal Factors Other Personal Factors That May Effect Pt kiana language is Greenlandic. Therapy/Recovery Daughter (CARO) is her rn pacu. Pt lives with CARO who works 8- 12 hour days on folded towel machine operator and is alone when DA. Pt walks alone with SPC, no life alert. Pt has fallen down stairs backwards when using stairs with carrying objects in hands . PT-OP-C Subjective Start: 05/09/22 19:03 Freq: Status: Active Protocol: Document 05/24/22 09:04 LRN (Rec: 05/24/22 09:49 LRN [id number]) OP-PT Subjective Patient Comments Patient Comments DA reports pt doing stand<>sit ex, steps, and some walking outside. Pt will be gone until June. Pt will be with daughter who might not do the ex's with her; therefore compliance to ex's may be limited. Pt hoping to walk and do sit<>stands independently. PT-OP-D Balance Start: 05/09/22 19:03 Freq: Status: Active Protocol: Document 05/14/22 09:50 LRN (Rec: 05/14/22 12:37 LRN [id number]) Joshi Balance Assessment Evaluation Sitting to Standing Ability Independent w/out Hands Unsupported Stance Safely- 2 minutes Sitting Unsupported, Feet on Floor Safely- 2 minutes Standing to Sitting Ability Safely, Minimal Hand Use Transfer Ability Safely, Minimal Hand Use Unsupported Stance- Eyes Closed Safely, 10 seconds Unsupported Stance- Eyes Open Independent, 1 minute Reaching Forward Standing Safely, 5 inches Pick- Up Object From Floor Independent/Safe Look Behind Shoulder - Standing Shifts Weight Unilateral Turning 360 Degrees Turns slowly, but safely Unsupported Stance, Alternating Feet on (I)- 8 Steps in > 20 secs Stair Unsupported Tandem Stance Balance Lost- Step/Stand Unilateral Leg Stance Lifts Leg/Unable to Hold Total Score Joshi Total Score (out of 56 points) 44 Joshi Impairment Rating 20 to 39% Impaired (Score 34- 44) PT-OP-E Functional Tests Start: 05/09/22 19:03 Freq: Status: Active Protocol: Document 05/17/22 09:50 LRN (Rec: 05/17/22 10:33 LRN [id number]) Functional Tests Other Gait Speed Name of Test Gait speed Score 20'/8 sec=2.5 ft/sec Comment 2.62-3.94 ft/sec for community gait speed PT-OP-G Mobility & Gait Start: 05/09/22 19:03 Freq: Status: Active Protocol: Document 05/14/22 09:50 LRN (Rec: 05/14/22 12:37 LRN [id number]) OP Mobility Evaluation Bed Mobility Supine to and from Sit Independent. PT-OP-H Neuro Start: 05/09/22 19:03 Freq: Status: Active Protocol: Document 05/14/22 09:50 LRN (Rec: 05/14/22 12:37 LRN [id number]) Sensation Evaluation Gross Sensation Gross Sensation WNL PT-OP-M Strength Start: 05/09/22 19:03 Freq: Status: Active Protocol: Document 05/24/22 09:04 LRN (Rec: 05/24/22 09:49 LRN [id number]) Hip Strength Hip Manual Muscle Testing Right Flexion (L2) 3 Fair Abduction 3 Fair Adduction 5 Normal External Rotation 5 Normal Internal Rotation 3 Fair Left Flexion (L2) 3 Fair Abduction 3 Fair Adduction 3 Fair External Rotation 3 Fair Internal Rotation 3 Fair PT-OP-Q Treatments Start: 05/09/22 19:03 Freq: Status: Active Protocol: Document 05/24/22 09:04 LRN (Rec: 05/24/22 09:49 LRN [id number]) Therapeutic Exercises Sidelying Exercises Hip IR Sidelying Exercise Name Reverse Clamshell Side bilateral Reps/Minutes 10x each Clamshell Sidelying Exercise Name Clamshell Side bilateral Reps/Minutes 15' Comments Much cuing anabelle to keep in proper position with knee raise. Hip AB Sidelying Exercise Name Assisted Hip AB Side bilateral Reps/Minutes 6' Comments Pt not able to sustain sidelie for ex, she rolls backward Sitting Exercises Hip ER stretch Sitting Exercise Name L>R Hip ER stretch (knee over ankle Side bilateral Reps/Minutes 60 SH x 1 = 12 breaths. L hip ER strengthening Sitting Exercise Name Heel sliding up puente to crossing ankle over knee Side right Reps/Minutes 15x Hip IR Sitting Exercise Name Hip IR Side bilateral Reps/Minutes 15x Sit<>Stands Sitting Exercise Name Sit<>Stands from webbed chair w/o hands Reps/Minutes 15x 2 Comments Short rest btn bouts. Pt's knees bothered her, but not too tired. Self-Care/Home Management Treatment Education Patient Education Home Exercise Program Activities Self-Care/Home Management Activities Issued & reviewed HEP: Hip ER stretch in supine & sitting; Sit<>Stands. I/S only (ex handouts not available) in sitting R hip ER (crossing ankle over knee), and hip IR (swinging feet out to side). PT-OP-T Assessment and Plan Start: 05/09/22 19:03 Freq: Status: Active Protocol: Document 05/24/22 09:04 LRN (Rec: 05/24/22 09:49 LRN [id number]) Physical Therapy Assessment Goals Four Impairment Decreased safety with gait Impairment 5XSTS in 12 secs (fall risk >= 12 secs, norm for 80-89 yo's is 14.8 secs) TUG - to be assessed next visit (avg for 80-89 yo women is 17.2 secs) Gait speed - to be assessed next visit. Short Term Goal (STG) Improve 5XSTS score or TUG score <14 secs, indicating decreased risk of falls. 05/17/22: TUG (2 trials) 19 & 15 secs. STG Duration 06/30/22 progressing 05/17/22. Heater Planer Operator Goal (LTG) Improve gait speed for safe community ambulation 2.62-3.94 ft/sec (safe to cross street gait speed of >3.9 ft/sec). 05/17/22: Gt speed is 2.5 ft/ sec. (: Gt speed 20'/8 = 2. 5 ft/sec) LTG Duration 08/12/22 Three Impairment Balance Impairment Initial Joshi Balance Score - 44 (20-39% impaired, score 34- 44) Initial: Pt falling 3x/week or 3x/month. Short Term Goal (STG) Pt will improve balance as noted with no LOB on stairs STG Duration 06/30/22 Heater Planer Operator Goal (LTG) Improve balance per Joshi Balance score >44 (1-19% impaired, score 45-55), with pt falling no more than (was 3x/week) or no more than 1x/ month with use of assistive device. LTG Duration 08/12/22 Two Impairment Decreased LE Strength/ decreased endurance Impairment Initial 30 sec chair stand is 7x (norm for 80-84 yo women is 9-14 times) Short Term Goal (STG) Improve 30 sec Chair Stand test to 9x, with pt able to walking around her home without holding onto the jarrell . STG Duration 06/30/22 Heater Planer Operator Goal (LTG) Pt will be able to join [employer] for an exercise program. LTG Duration 08/12/22 One Impairment Decreased function per ABC & DHI score Impairment ABC score 54.375 (40 <60% impaired, score 41-60) Dizziness Questionnaire 196 ( 100% impaired, score 100 or more) Short Term Goal (STG) Pt will be able to Squat (as her L knee pain allows) to reaching for low items without falling. STG Duration 06/30/22 Heater Planer Operator Goal (LTG) Improve function per ABC score >80 (1<20% impaired, score 81 -99). LTG Duration 08/12/22 Assessment Summary Assessment Pt Bilateral: hip AD strength is 5/5, hip rotation strength is decreased: IR 3/5, ER 3/5L, 5/5R. Pt did much better in keeping core stable during previously issued hip ex's, but required phys & v cuing to core as well as hip for proper mvmt. R hip is stronger than L hip and moves with better mechanics during ex's. Physical Therapy Plan Frequency and Duration Frequency of Treatment 2x/Week Plan of Care Start Date 05/14/22 Plan of Care End Date 08/12/22 Next Visit Focus/Plan Next Note Type Treatment Note Next Visit Plan Pt will be returning from vacation ~ 1 month; therefore review ex's. If handouts available, add LE strengthening (rot) for HEP. Progress LE strengthening for stair ambulation safety Gait & Balance training to improve safety with gait and speed. Cont pt/Caregiver education for HEP.
--- NOTE | 2022-07-16 12:20 | PT.OTN ---
Current Diagnoses Other specified disorders of brain (07/16/22) Pain in left knee (07/16/22) Muscle weakness (generalized) (07/16/22) Other abnormalities of gait and mobility (07/16/22) Repeated falls (07/16/22) Physical Therapy Treatment Note PT-OP-A Visit Information Start: 05/09/22 19:03 Freq: Status: Active Protocol: Document 07/16/22 11:30 LRN (Rec: 07/16/22 12:19 LRN [id number]) Out-Patient Physical Therapy Visit Information Visit Information Visit Type Treatment Note Visit Note DA present to interpret Visit Start Time 11:30 Visit Stop Time 12:09 Total Visit Minutes 39 Visit Number Evaluation Information Evaluation Date 05/14/22 Precautions Precautions s/p SLACKMAN (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 PT-OP-B Current Condition Start: 05/09/22 19:03 Freq: Status: Active Protocol: Document 05/14/22 09:50 LRN (Rec: 05/14/22 12:37 LRN [id number]) Current Condition History of Current Condition Onset Date 03/04/22 Current Complaints Balance problem and weakness in LE's and low endurance History of Current Condition Surgery at for Ventriculoperitoneal (SLACKMAN) shunt 03/04/22. Overnight hospitalization, then home. Has been walking around the house a couple times a day. Used to walk from home (near high school) to [employer] 4 yrs ago. Pt used to take care of house and yardwork, but not able to yet. She is walking at home around the house, touching/holding onto things for balance. Pt is walking outside by herself with a single point cane. Daughter states prior to surgery she had a magnet shuffling- Parkingson's type gait, but not since surgery. She used to fall 3x/week, but since her surgery has fallen 3 times, but balance is much improved and speed of walking has improved since surgery. Her neurologist at [facility] and at recommended physical therapy. PCP started referral. CARO was nurse practitioner at ER and now is a nurse in ER (PACU). Works 3 -4x/weeks, therefore pt stays by self when CARO works. CARO is leaving State for reserve work 05/25-06/24; therefore the pt will be going to stay with her other daughter out of state. Prior Treatments and Tests None. Future Testing and Treatments Planned Dr. Kirk f/u visit @ . No future appts with PCP. Developmental History Developmental History Attended [facility] until end of February 2022 due to falls, then insurance changed. Was falling frequently prior to surgery and since surgery has fallen 3x. DA reports pt has pain in L back and L medial knee pain from previous falls (L knee pain from landing on the knee from slipping on leaves outside). Treatment Goals Patient/Caregiver Goals Pt goals per DA interpretation : - Better balance not LOB on stairs, and - Falling no more than (was 3x /week) once per month with use of assistive device as needed . - Squat (as her L knee pain allows) to reaching for low items without falling. - Join [employer] for exercise. - Walking around home without holding onto the jarrell. Prior Functional Status Baseline Function- ADL's Modified Independent Baseline Function- Mobility Modified Independent Baseline Function- Gait Walked with Hortencia Baseline Function- Other Fell 3-4x/week. Current Functional Impairments (Reported) Functional Limitations- ADL's Ambulates 15 stairs to get to bedroom using railing on both sides (except 20 ft no railing ). Has fallen down stairs ( holding her dog, who is now ). Walking around the house holding onto things Walkiing outside with SPC on concrete with a little incline ~ 1 blocks. Functional Limitations- Mobility/Gait Independent ADLs. Personal Factors Other Personal Factors That May Effect Pt clark's point language is Greek. Therapy/Recovery Daughter (CARO) is her buying agent. Pt lives with CARO who works 8- 12 hour days on switchboard operator supervisor and is alone when DA. Pt walks alone with SPC, no life alert. Pt has fallen down stairs backwards when using stairs with carrying objects in hands . PT-OP-C Subjective Start: 05/09/22 19:03 Freq: Status: Active Protocol: Document 07/16/22 11:30 LRN (Rec: 07/16/22 12:19 LRN [id number]) OP-PT Subjective Patient Comments Patient Comments CARO states she did walking, but not too much. Did f/u with neurolgist and was found to be normal. Recommended cont of therapy. States mother does partial falls. She has fallen once at home in kitchen, sliding on ledge of kitchen mat. PT-OP-D Balance Start: 05/09/22 19:03 Freq: Status: Active Protocol: Document 05/14/22 09:50 LRN (Rec: 05/14/22 12:37 LRN [id number]) Joshi Balance Assessment Evaluation Sitting to Standing Ability Independent w/out Hands Unsupported Stance Safely- 2 minutes Sitting Unsupported, Feet on Floor Safely- 2 minutes Standing to Sitting Ability Safely, Minimal Hand Use Transfer Ability Safely, Minimal Hand Use Unsupported Stance- Eyes Closed Safely, 10 seconds Unsupported Stance- Eyes Open Independent, 1 minute Reaching Forward Standing Safely, 5 inches Pick- Up Object From Floor Independent/Safe Look Behind Shoulder - Standing Shifts Weight Unilateral Turning 360 Degrees Turns slowly, but safely Unsupported Stance, Alternating Feet on (I)- 8 Steps in > 20 secs Stair Unsupported Tandem Stance Balance Lost- Step/Stand Unilateral Leg Stance Lifts Leg/Unable to Hold Total Score Joshi Total Score (out of 56 points) 44 Joshi Impairment Rating 20 to 39% Impaired (Score 34- 44) PT-OP-E Functional Tests Start: 05/09/22 19:03 Freq: Status: Active Protocol: Document 05/17/22 09:50 LRN (Rec: 05/17/22 10:33 LRN [id number]) Functional Tests Other Gait Speed Name of Test Gait speed Score 20'/8 sec=2.5 ft/sec Comment 2.62-3.94 ft/sec for community gait speed PT-OP-G Mobility & Gait Start: 05/09/22 19:03 Freq: Status: Active Protocol: Document 05/14/22 09:50 LRN (Rec: 05/14/22 12:37 LRN [id number]) OP Mobility Evaluation Bed Mobility Supine to and from Sit Independent. PT-OP-H Neuro Start: 05/09/22 19:03 Freq: Status: Active Protocol: Document 05/14/22 09:50 LRN (Rec: 05/14/22 12:37 LRN [id number]) Sensation Evaluation Gross Sensation Gross Sensation WNL PT-OP-M Strength Start: 05/09/22 19:03 Freq: Status: Active Protocol: Document 05/24/22 09:04 LRN (Rec: 05/24/22 09:49 LRN [id number]) Hip Strength Hip Manual Muscle Testing Right Flexion (L2) 3 Fair Abduction 3 Fair Adduction 5 Normal External Rotation 5 Normal Internal Rotation 3 Fair Left Flexion (L2) 3 Fair Abduction 3 Fair Adduction 3 Fair External Rotation 3 Fair Internal Rotation 3 Fair PT-OP-Q Treatments Start: 05/09/22 19:03 Freq: Status: Active Protocol: Document 07/16/22 11:30 LRN (Rec: 07/16/22 12:19 LRN [id number]) Therapeutic Exercises Sitting Exercises Ankle DF Sitting Exercise Name DF strengthening Side bilateral Equipment Used Lev 2 TB Reps/Minutes 15x Comments Extra time for DA to explain to pt in clark's point tongue, and to find max resist Ankle EV Sitting Exercise Name EV strengthening Side bilateral Equipment Used Lev 2 TB, towel roll btn knees Reps/Minutes 12' Comments Extra time for DA to explain to pt in clark's point tongue, and to find max resist Ankle IV Sitting Exercise Name IV strengthening Side bilateral Equipment Used Lev 2 TB Reps/Minutes 13' Comments Extra time for DA to explain to pt in clark's point tongue, and to find max resist Standing Exercises Balance-toe raises Standing Exercise Name Toe raises for balance - holding bar Equipment Used Gait Belt Reps/Minutes 15x Comments SBA guarding needed. Balance-heel raises Standing Exercise Name Heel raises for balance - hands hovering over bar Equipment Used Gait Belt Reps/Minutes 15x Comments SBA guarding needed. Heel raises Standing Exercise Name Heel raises Side bilateral Equipment Used Bar for balance safety Reps/Minutes 15x 2 Comments SBA guarding. Extra time for DA to explain to pt in clark's point tongue Self-Care/Home Management Treatment Education Patient Education Home Exercise Program Activities Self-Care/Home Management Activities Issued & reviewed HEP: TBand ankle strengthening, IV/EV/DF and standing ankle DF/PF. PT-OP-T Assessment and Plan Start: 05/09/22 19:03 Freq: Status: Active Protocol: Document 07/16/22 11:30 LRN (Rec: 07/16/22 12:19 LRN [id number]) Physical Therapy Assessment Goals Four Impairment Decreased safety with gait Impairment 5XSTS in 12 secs (fall risk >= 12 secs, norm for 80-89 yo's is 14.8 secs) TUG - assessed is 19 & 15 secs (avg for 80-89 yo women is 17.2 secs) Gait speed - assessed on is 2.5 ft/sec. Short Term Goal (STG) Improve 5XSTS score or TUG score <14 secs, indicating decreased risk of falls. 05/17/22: TUG (2 trials) 19 & 15 secs. STG Duration 06/30/22 progressing 05/17/22. Assisted Goal (LTG) Improve gait speed for safe community ambulation 2.62-3.94 ft/sec (safe to cross street gait speed of >3.9 ft/sec). 05/17/22: Gt speed is 2.5 ft/ sec. (: Gt speed 20'/8 = 2. 5 ft/sec) LTG Duration 08/12/22 Three Impairment Balance Impairment Initial Joshi Balance Score - 44 (20-39% impaired, score 34- 44) Initial: Pt falling 3x/week or 3x/month. Short Term Goal (STG) Pt will improve balance as noted with no LOB on stairs STG Duration 06/30/22 Assisted Goal (LTG) Improve balance per Joshi Balance score >44 (1-19% impaired, score 45-55), with pt falling no more than (was 3x/week) or no more than 1x/ month with use of assistive device. LTG Duration 08/12/22 Two Impairment Decreased LE Strength/ decreased endurance Impairment Initial 30 sec chair stand is 7x (norm for 80-84 yo women is 9-14 times) Short Term Goal (STG) Improve 30 sec Chair Stand test to 9x, with pt able to walking around her home without holding onto the jarrell . STG Duration 06/30/22 Assisted Goal (LTG) Pt will be able to join [facility] gym for an exercise program. LTG Duration 08/12/22 One Impairment Decreased function per ABC & DHI score Impairment ABC score 54.375 (40 <60% impaired, score 41-60) Dizziness Questionnaire 196 ( 100% impaired, score 100 or more) Short Term Goal (STG) Pt will be able to Squat (as her L knee pain allows) to reaching for low items without falling. STG Duration 06/30/22 Mobile Security Specialist Goal (LTG) Improve function per ABC score >80 (1<20% impaired, score 81 -99). LTG Duration 08/12/22 Assessment Summary Assessment Extra time needed for training of new ex's due to language difference and DA being buying agent. Pt able to perform 15 reps with ankle ex' s with DA assist translating assist. DA is very good at explaining and correcting pt through ex's. Pt has difficulty with ankle IV & standing DF. Physical Therapy Plan Frequency and Duration Frequency of Treatment 2x/Week Plan of Care Start Date 05/14/22 Plan of Care End Date 08/12/22 Next Visit Focus/Plan Next Note Type Treatment Note Next Visit Plan Review ex's from 05/24 & last issued. If handouts available, add LE strengthening (rot) for HEP. Progress LE strengthening for stair ambulation safety Gait & Balance training to improve safety with gait and speed. Cont pt/Caregiver education for HEP.
--- NOTE | 2022-07-23 12:27 | PT.OTN ---
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) Pain in left knee (07/23/22) Muscle weakness (generalized) (07/23/22) Other abnormalities of gait and mobility (07/23/22) Repeated falls (07/23/22) Physical Therapy Treatment Note PT-OP-A Visit Information Start: 05/09/22 19:03 Freq: Status: Active Protocol: Document 07/23/22 11:20 LRN (Rec: 07/23/22 12:23 LRN [id number]) Out-Patient Physical Therapy Visit Information Visit Information Visit Type Treatment Note Visit Start Time 11:20 Visit Stop Time 12:07 Total Visit Minutes 47 Visit Number Evaluation Information Evaluation Date 05/14/22 Precautions Precautions s/p DRILLER BRAKE LINING (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 PT-OP-B Current Condition Start: 05/09/22 19:03 Freq: Status: Active Protocol: Document 05/14/22 09:50 LRN (Rec: 05/14/22 12:37 LRN [id number]) Current Condition History of Current Condition Onset Date 03/04/22 Current Complaints Balance problem and weakness in LE's and low endurance History of Current Condition Surgery at for Ventriculoperitoneal (DRILLER BRAKE LINING) shunt 03/04/22. Overnight hospitalization, then home. Has been walking around the house a couple times a day. Used to walk from home (near high school) to [employer] 4 yrs ago. Pt used to take care of house and yardwork, but not able to yet. She is walking at home around the house, touching/holding onto things for balance. Pt is walking outside by herself with a single point cane. Daughter states prior to surgery she had a magnet shuffling- Parkingson's type gait, but not since surgery. She used to fall 3x/week, but since her surgery has fallen 3 times, but balance is much improved and speed of walking has improved since surgery. Her neurologist at [facility] and at recommended physical therapy. PCP started referral. CARO was nurse practitioner at ER and now is a nurse in ER (PACU). Works 3 -4x/weeks, therefore pt stays by self when DA works. DA is leaving State for reserve work 05/25-06/24; therefore the pt will be going to stay with her other daughter out of state. Prior Treatments and Tests None. Future Testing and Treatments Planned Dr. Kirk f/u visit @ . No future appts with PCP. Developmental History Developmental History Attended [place] [facility] until end of February 2022 due to falls, then insurance changed. Was falling frequently prior to surgery and since surgery has fallen 3x. DA reports pt has pain in L back and L medial knee pain from previous falls (L knee pain from landing on the knee from slipping on leaves outside). Treatment Goals Patient/Caregiver Goals Pt goals per DA interpretation : - Better balance not LOB on stairs, and - Falling no more than (was 3x /week) once per month with use of assistive device as needed . - Squat (as her L knee pain allows) to reaching for low items without falling. - Join [employer] for exercise. - Walking around home without holding onto the jarrell. Prior Functional Status Baseline Function- ADL's Modified Independent Baseline Function- Mobility Modified Independent Baseline Function- Gait Walked with Hortencia Baseline Function- Other Fell 3-4x/week. Current Functional Impairments (Reported) Functional Limitations- ADL's Ambulates 15 stairs to get to bedroom using railing on both sides (except 20 ft no railing ). Has fallen down stairs ( holding her dog, who is now ). Walking around the house holding onto things Walkiing outside with SPC on concrete with a little incline ~ 1 blocks. Functional Limitations- Mobility/Gait Independent ADLs. Personal Factors Other Personal Factors That May Effect Pt be[place] language is Amharic. Therapy/Recovery Daughter (CARO) is her jewelry engraver. Pt lives with CARO who works 8- 12 hour days on power shovel operator and is alone when DA. Pt walks alone with SPC, no life alert. Pt has fallen down stairs backwards when using stairs with carrying objects in hands . PT-OP-C Subjective Start: 05/09/22 19:03 Freq: Status: Active Protocol: Document 07/23/22 11:20 LRN (Rec: 07/23/22 12:23 LRN [id number]) OP-PT Subjective Patient Comments Patient Comments DA states pt fell fwd, 4 days ago and hit her forehead and just missed her shunt. Pt failed to lift her feet high enough to clear uneven ground and was sweeping the ground. DA feels she is piking her feet up better, but she was wearing UGGS. No c/o pain from fall, having stomach pain . PT-OP-D Balance Start: 05/09/22 19:03 Freq: Status: Active Protocol: Document 05/14/22 09:50 LRN (Rec: 05/14/22 12:37 LRN [id number]) Joshi Balance Assessment Evaluation Sitting to Standing Ability Independent w/out Hands Unsupported Stance Safely- 2 minutes Sitting Unsupported, Feet on Floor Safely- 2 minutes Standing to Sitting Ability Safely, Minimal Hand Use Transfer Ability Safely, Minimal Hand Use Unsupported Stance- Eyes Closed Safely, 10 seconds Unsupported Stance- Eyes Open Independent, 1 minute Reaching Forward Standing Safely, 5 inches Pick- Up Object From Floor Independent/Safe Look Behind Shoulder - Standing Shifts Weight Unilateral Turning 360 Degrees Turns slowly, but safely Unsupported Stance, Alternating Feet on (I)- 8 Steps in > 20 secs Stair Unsupported Tandem Stance Balance Lost- Step/Stand Unilateral Leg Stance Lifts Leg/Unable to Hold Total Score Joshi Total Score (out of 56 points) 44 Joshi Impairment Rating 20 to 39% Impaired (Score 34- 44) PT-OP-E Functional Tests Start: 05/09/22 19:03 Freq: Status: Active Protocol: Document 05/17/22 09:50 LRN (Rec: 05/17/22 10:33 LRN [id number]) Functional Tests Other Gait Speed Name of Test Gait speed Score 20'/8 sec=2.5 ft/sec Comment 2.62-3.94 ft/sec for community gait speed PT-OP-G Mobility & Gait Start: 05/09/22 19:03 Freq: Status: Active Protocol: Document 05/14/22 09:50 LRN (Rec: 05/14/22 12:37 LRN [id number]) OP Mobility Evaluation Bed Mobility Supine to and from Sit Independent. PT-OP-H Neuro Start: 05/09/22 19:03 Freq: Status: Active Protocol: Document 05/14/22 09:50 LRN (Rec: 05/14/22 12:37 LRN [id number]) Sensation Evaluation Gross Sensation Gross Sensation WNL PT-OP-M Strength Start: 05/09/22 19:03 Freq: Status: Active Protocol: Document 05/24/22 09:04 LRN (Rec: 05/24/22 09:49 LRN [id number]) Hip Strength Hip Manual Muscle Testing Right Flexion (L2) 3 Fair Abduction 3 Fair Adduction 5 Normal External Rotation 5 Normal Internal Rotation 3 Fair Left Flexion (L2) 3 Fair Abduction 3 Fair Adduction 3 Fair External Rotation 3 Fair Internal Rotation 3 Fair PT-OP-Q Treatments Start: 05/09/22 19:03 Freq: Status: Active Protocol: Document 07/23/22 11:20 LRN (Rec: 07/23/22 12:23 LRN [id number]) Therapeutic Exercises Sitting Exercises Ankle DF Sitting Exercise Name DF strengthening Side bilateral Equipment Used Lev 2 TB Reps/Minutes 15x Comments Extra time for DA to explain to pt in beaver tongue, and to move correctly Ankle EV Sitting Exercise Name EV strengthening Side bilateral Equipment Used Lev 2 TB, towel roll btn knees Reps/Minutes 30x Comments Extra time for DA to explain to pt in beaver tongue, and to move correctly Ankle IV Sitting Exercise Name IV strengthening Side bilateral Equipment Used Lev 2 TB Reps/Minutes 13' Comments Extra time for DA to explain to pt in beaver tongue, and to find max resist Hip ER stretch Sitting Exercise Name L>R Hip ER stretch (knee over ankle Side bilateral Reps/Minutes 60 SH x 1 = 12 breaths. L hip ER strengthening Sitting Exercise Name Heel sliding up puente to crossing ankle over knee Side right Reps/Minutes 5x Hip IR Sitting Exercise Name Hip IR (L>R due to weak L side) Side bilateral Equipment Used towel roll btn knees Reps/Minutes 15x 2 each, alternating leg. Comments Some phys and DA v cuing for foot lift L side Neuro Re-Education Treatment Balance Activities Ladder stepping Details Ladder stepping Equipment Athlete Ladder Reps/Duration 8 Comments Pt tends to hold RLE in ER with LOB x 2 to the right. Pt tends to lean to the right during stepping. Pt does better when looking towards feet or 2 steps ahead. She has LOB when looking straight ahead. Self-Care/Home Management Treatment Education Patient Education Home Exercise Program Activities Self-Care/Home Management Activities Issued & reviewed HEP: Sitting hip IR (foot swings out to sides with knees together). Reissued HEP due to ex HO's due to no longer has them. PT-OP-T Assessment and Plan Start: 05/09/22 19:03 Freq: Status: Active Protocol: Document 07/23/22 11:20 LRN (Rec: 07/23/22 12:23 LRN [id number]) Physical Therapy Assessment Goals Four Impairment Decreased safety with gait Impairment 5XSTS in 12 secs (fall risk >= 12 secs, norm for 80-89 yo's is 14.8 secs) TUG - assessed is 19 & 15 secs (avg for 80-89 yo women is 17.2 secs) Gait speed - assessed on is 2.5 ft/sec. Short Term Goal (STG) Improve 5XSTS score or TUG score <14 secs, indicating decreased risk of falls. 05/17/22: TUG (2 trials) 19 & 15 secs. STG Duration 06/30/22 progressing 05/17/22. Jail Goal (LTG) Improve gait speed for safe community ambulation 2.62-3.94 ft/sec (safe to cross street gait speed of >3.9 ft/sec). 05/17/22: Gt speed is 2.5 ft/ sec. (: Gt speed 20'/8 = 2. 5 ft/sec) LTG Duration 08/12/22 Three Impairment Balance Impairment Initial Joshi Balance Score - 44 (20-39% impaired, score 34- 44) Initial: Pt falling 3x/week or 3x/month. Short Term Goal (STG) Pt will improve balance as noted with no LOB on stairs STG Duration 06/30/22 Jail Goal (LTG) Improve balance per Joshi Balance score >44 (1-19% impaired, score 45-55), with pt falling no more than (was 3x/week) or no more than 1x/ month with use of assistive device. LTG Duration 08/12/22 Two Impairment Decreased LE Strength/ decreased endurance Impairment Initial 30 sec chair stand is 7x (norm for 80-84 yo women is 9-14 times) Short Term Goal (STG) Improve 30 sec Chair Stand test to 9x, with pt able to walking around her home without holding onto the jarrell . STG Duration 06/30/22 Exhibition Specialist Goal (LTG) Pt will be able to join [employer] for an exercise program. LTG Duration 08/12/22 One Impairment Decreased function per ABC & DHI score Impairment ABC score 54.375 (40 <60% impaired, score 41-60) Dizziness Questionnaire 196 ( 100% impaired, score 100 or more) Short Term Goal (STG) Pt will be able to Squat (as her L knee pain allows) to reaching for low items without falling. STG Duration 06/30/22 Exhibition Specialist Goal (LTG) Improve function per ABC score >80 (1<20% impaired, score 81 -99). LTG Duration 08/12/22 Progress Towards Goals Progress Comments Progressed HEP. Assessment Summary Assessment Pt needed review of ankle strengthening and hip stretches, and required much cuing and assist to perform ankle ex's. Pt hip ER mobility appears improved. Decreased active L Hip IR is noted. Pt subdued today. It was expressed by DA that pt was not using her L UE during gait. Pt tends to hold her RLE in ER with balance ex's and tends to fall to the right with balance ex with ladder. Physical Therapy Plan Frequency and Duration Frequency of Treatment 2x/Week Plan of Care Start Date 05/14/22 Plan of Care End Date 08/12/22 Next Visit Focus/Plan Next Note Type Treatment Note Next Visit Plan Next: Vestibular assessment to determine if involved with balance deficits. Add LE strengthening (Ext rot) for HEP and review IR strengthening. Add resisted stair stepping for LE strengthening and PRE's as tolerated on L knee. Progress LE strengthening for stair ambulation safety Gait & Balance training to improve safety with gait and speed. Try Shuttle Balance with tilt to R side to encourage pt lean to L in standing and with activity. Cont pt/Caregiver education for HEP.
--- NOTE | 2022-07-26 11:10 | PT.OTN ---
Current Diagnoses Other specified disorders of brain (07/26/22) Pain in left knee (07/26/22) Muscle weakness (generalized) (07/26/22) Other abnormalities of gait and mobility (07/26/22) Repeated falls (07/26/22) Physical Therapy Treatment Note PT-OP-A Visit Information Start: 05/09/22 19:03 Freq: Status: Active Protocol: Document 07/26/22 10:30 DCW (Rec: 07/26/22 11:10 DCW [id number]) Out-Patient Physical Therapy Visit Information Visit Information Visit Type Progress Note Visit Start Time 10:30 Visit Stop Time 10:55 Total Visit Minutes 25 Visit Number 7 Evaluation Information Evaluation Date 05/14/22 Precautions Precautions s/p SHEET MILL SUPERVISOR (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 PT-OP-B Current Condition Start: 05/09/22 19:03 Freq: Status: Active Protocol: Document 07/26/22 10:30 DCW (Rec: 07/26/22 11:10 DCW [id number]) Current Condition History of Current Condition Onset Date 03/04/22 Current Complaints Balance problem and weakness in LE's and low endurance History of Current Condition Surgery at for Ventriculoperitoneal (SHEET MILL SUPERVISOR) shunt 03/04/22. Overnight hospitalization, then home. Has been walking around the house a couple times a day. Used to walk from home (near high school) to [employer] 4 yrs ago. Pt used to take care of house and yardwork, but not able to yet. She is walking at home around the house, touching/holding onto things for balance. Pt is walking outside by herself with a single point cane. Daughter states prior to surgery she had a magnet shuffling- Parkingson's type gait, but not since surgery. She used to fall 3x/week, but since her surgery has fallen 3 times, but balance is much improved and speed of walking has improved since surgery. Her neurologist at [facility] and at recommended physical therapy. PCP started referral. CARO was nurse practitioner at ER and now is a nurse in ER (PACU). Works 3 -4x/weeks, therefore pt stays by self when DA works. DA is leaving State for reserve work 05/25-06/24; therefore the pt will be going to stay with her other daughter out of state. 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 Reports she does not do anything at the hair salon or the dentist's office that requires her to lay her head back far. Admits she has had CRM off and on from different ENTs, both when they were visiting [place] and locally. Prior Treatments and Tests None. Future Testing and Treatments Planned Dr. Kirk f/u visit @ . No future appts with PCP. Developmental History Developmental History Attended [place] [facility] until end of February 2022 due to falls, then insurance changed. Was falling frequently prior to surgery and since surgery has fallen 3x. DA reports pt has pain in L back and L medial knee pain from previous falls (L knee pain from landing on the knee from slipping on leaves outside). Treatment Goals Patient/Caregiver Goals Pt goals per DA interpretation : - Better balance not LOB on stairs, and - Falling no more than (was 3x /week) once per month with use of assistive device as needed . - Squat (as her L knee pain allows) to reaching for low items without falling. - Join [employer] for exercise. - Walking around home without holding onto the jarrell. Prior Functional Status Baseline Function- ADL's Modified Independent Baseline Function- Mobility Modified Independent Baseline Function- Gait Walked with Hortencia Baseline Function- Other Fell 3-4x/week. Current Functional Impairments (Reported) Functional Limitations- ADL's Ambulates 15 stairs to get to bedroom using railing on both sides (except 20 ft no railing ). Has fallen down stairs ( holding her dog, who is now ). Walking around the house holding onto things Walkiing outside with SPC on concrete with a little incline ~ 1 blocks. Functional Limitations- Mobility/Gait Independent ADLs. Personal Factors Other Personal Factors That May Effect Pt [place] language is Greenlandic. Therapy/Recovery Daughter (CARO) is her cycling instructor. Pt lives with CARO who works 8- 12 hour days on drip pumper and is alone when DA. Pt walks alone with SPC, no life alert. Pt has fallen down stairs backwards when using stairs with carrying objects in hands . PT-OP-C Subjective Start: 05/09/22 19:03 Freq: Status: Active Protocol: Document 07/26/22 10:30 DCW (Rec: 07/26/22 11:10 DCW [id number]) OP-PT Subjective Patient Comments Patient Comments Daughter reports she has attempted home Kathrin maneuver previously, but never sure she is doing it correctly. PT-OP-D Balance Start: 05/09/22 19:03 Freq: Status: Active Protocol: Document 05/14/22 09:50 LRN (Rec: 05/14/22 12:37 LRN [id number]) Joshi Balance Assessment Evaluation Sitting to Standing Ability Independent w/out Hands Unsupported Stance Safely- 2 minutes Sitting Unsupported, Feet on Floor Safely- 2 minutes Standing to Sitting Ability Safely, Minimal Hand Use Transfer Ability Safely, Minimal Hand Use Unsupported Stance- Eyes Closed Safely, 10 seconds Unsupported Stance- Eyes Open Independent, 1 minute Reaching Forward Standing Safely, 5 inches Pick- Up Object From Floor Independent/Safe Look Behind Shoulder - Standing Shifts Weight Unilateral Turning 360 Degrees Turns slowly, but safely Unsupported Stance, Alternating Feet on (I)- 8 Steps in > 20 secs Stair Unsupported Tandem Stance Balance Lost- Step/Stand Unilateral Leg Stance Lifts Leg/Unable to Hold Total Score Joshi Total Score (out of 56 points) 44 Joshi Impairment Rating 20 to 39% Impaired (Score 34- 44) PT-OP-E Functional Tests Start: 05/09/22 19:03 Freq: Status: Active Protocol: Document 05/17/22 09:50 LRN (Rec: 05/17/22 10:33 LRN [id number]) Functional Tests Other Gait Speed Name of Test Gait speed Score 20'/8 sec=2.5 ft/sec Comment 2.62-3.94 ft/sec for community gait speed PT-OP-G Mobility & Gait Start: 05/09/22 19:03 Freq: Status: Active Protocol: Document 05/14/22 09:50 LRN (Rec: 05/14/22 12:37 LRN [id number]) OP Mobility Evaluation Bed Mobility Supine to and from Sit Independent. PT-OP-H Neuro Start: 05/09/22 19:03 Freq: Status: Active Protocol: Document 05/14/22 09:50 LRN (Rec: 05/14/22 12:37 LRN [id number]) Sensation Evaluation Gross Sensation Gross Sensation WNL PT-OP-M Strength Start: 05/09/22 19:03 Freq: Status: Active Protocol: Document 05/24/22 09:04 LRN (Rec: 05/24/22 09:49 LRN [id number]) Hip Strength Hip Manual Muscle Testing Right Flexion (L2) 3 Fair Abduction 3 Fair Adduction 5 Normal External Rotation 5 Normal Internal Rotation 3 Fair Left Flexion (L2) 3 Fair Abduction 3 Fair Adduction 3 Fair External Rotation 3 Fair Internal Rotation 3 Fair PT-OP-O Vestibular Start: 07/26/22 10:56 Freq: Status: Active Protocol: Document 07/26/22 10:30 DCW (Rec: 07/26/22 11:10 DCW [id number]) Vestibular Assessment Screening Tests Vestibular Artery Screen Negative Visual Testing Smooth Pursuits Horizontal WNL Smooth Pursuits Vertical WNL Saccades Horizontal WNL Saccades Vertical WNL Positional Testing [place]-Hallpike Positive Left,Positive Right,< 60 Seconds Comments Vestibular Comments Pt squeezes eyes shut immediately upon becoming dizzy, does not respond to instruction to open eyes, impossible to determine directionality of any potential nystagmus. Did appear to have a stronger reaction on right side PT-OP-Q Treatments Start: 05/09/22 19:03 Freq: Status: Active Protocol: Document 07/26/22 10:30 DCW (Rec: 07/26/22 11:10 DCW [id number]) Canalithic Repositioning BPPV Treatment Kathrin Affected Canal(s) Left posterior? Reps x1 PT-OP-T Assessment and Plan Start: 05/09/22 19:03 Freq: Status: Active Protocol: Document 07/26/22 10:30 DCW (Rec: 07/26/22 11:10 DCW [id number]) Physical Therapy Assessment Impairments Impairments Activity Tolerance,Balance, Gait,Strength,Vestibular Goals Five Impairment Positive Mariela-Hallpike test bilaterally Short Term Goal (STG) Pt to test negative with all positional testing bilaterally STG Duration 08/26/22 Four Impairment Decreased safety with gait Impairment 5XSTS in 12 secs (fall risk >= 12 secs, norm for 80-89 yo's is 14.8 secs) TUG - assessed is 19 & 15 secs (avg for 80-89 yo women is 17.2 secs) Gait speed - assessed on is 2.5 ft/sec. Short Term Goal (STG) Improve 5XSTS score or TUG score <14 secs, indicating decreased risk of falls. 05/17/22: TUG (2 trials) 19 & 15 secs. STG Duration 08/26/22 progressing 05/17/22. Indian Trader Goal (LTG) Improve gait speed for safe community ambulation 2.62-3.94 ft/sec (safe to cross street gait speed of >3.9 ft/sec). 05/17/22: Gt speed is 2.5 ft/ sec. (: Gt speed 20'/8 = 2. 5 ft/sec) LTG Duration 10/24/22 Three Impairment Balance Impairment Initial Joshi Balance Score - 44 (20-39% impaired, score 34- 44) Initial: Pt falling 3x/week or 3x/month. Short Term Goal (STG) Pt will improve balance as noted with no LOB on stairs STG Duration 08/26/22 Indian Trader Goal (LTG) Improve balance per Joshi Balance score >44 (1-19% impaired, score 45-55), with pt falling no more than (was 3x/week) or no more than 1x/ month with use of assistive device. LTG Duration 10/24/22 Two Impairment Decreased LE Strength/ decreased endurance Impairment Initial 30 sec chair stand is 7x (norm for 80-84 yo women is 9-14 times) Short Term Goal (STG) Improve 30 sec Chair Stand test to 9x, with pt able to walking around her home without holding onto the jarrell . STG Duration 08/26/22 Indian Trader Goal (LTG) Pt will be able to join [facility] for an exercise program. LTG Duration 10/24/22 One Impairment Decreased function per ABC & DHI score Impairment ABC score 54.375 (40 <60% impaired, score 41-60) Dizziness Questionnaire 196 ( 100% impaired, score 100 or more) Short Term Goal (STG) Pt will be able to Squat (as her L knee pain allows) to reaching for low items without falling. STG Duration 08/26/22 Detention Goal (LTG) Improve function per ABC score >80 (1<20% impaired, score 81 -99). LTG Duration 10/24/22 Assessment Summary Assessment During left Mariela-Hallpike test, pt complained of vertigo and demonstrated nystagmus, however pt unwilling to open eyes while dizzy, resulting in impossibility of determining directionality of nystagmus. Vertigo lasted approximately 15 seconds, consistent with diagnosis of left-sided BPPV, canalithiasis-type. Attempted left modified Kathrin, but upon getting to position two, pt had a stronger reaction, but once again closed her eyes. As left-Kathrin was already in progress, completed left Kathrin . Discussed with pt and daughter, pt did not want to go through further testing or CRM at this time, would rather return at next scheduled PT appointment to perform right Kathrin. Will likely benefit from further positional testing as tolerated in an effort to better determine directionality of nystagmus. Additionally, pt should continue with already established POC to improve gait, balance, and strength. Physical Therapy Plan Frequency and Duration Frequency of Treatment 2x/Week Plan of Care Start Date 07/26/22 Plan of Care End Date 10/24/22 Therapeutic Interventions Therapeutic Interventions Balance Training,Canalithic Repositioning,Gait Training, Home Exercise Program, Neuromuscular Re-education, Patient/Caregiver Education, Self-Care/Home Management, Therapeutic Activities, Therapeutic Exercises, Vestibular Rehabilitation Modalities Cold Pack/Ice Massage Next Visit Focus/Plan Next Note Type Treatment Note Next Visit Plan Next: Further vestibular testing/positional testing, CRM as indicated, as well as home Kathrin hand-out for daughter. Add LE strengthening (Ext rot) for HEP and review IR strengthening. Add resisted stair stepping for LE strengthening and PRE's as tolerated on L knee. Progress LE strengthening for stair ambulation safety Gait & Balance training to improve safety with gait and speed. Try Shuttle Balance with tilt to R side to encourage pt lean to L in standing and with activity. Cont pt/Caregiver education for HEP.
--- NOTE | 2022-07-26 11:11 | PT.OPPOC ---
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) Pain in left knee (07/26/22) Muscle weakness (generalized) (07/26/22) Other abnormalities of gait and mobility (07/26/22) Repeated falls (07/26/22) Visit Care Team Role Provider Type Oli Victoria MD Attending Provider Physician Family Provider Primary Care Provider Referring Provider Specialty: Family Practice Address: [address] [place] [address], [facility] Email: [email or web address] Plan Of Care PT-OP-T Assessment and Plan Start: 05/09/22 19:03 Freq: Status: Active Protocol: Document 07/26/22 10:30 DCW (Rec: 07/26/22 11:10 DCW [id number]) Physical Therapy Assessment Impairments Impairments Activity Tolerance,Balance, Gait,Strength,Vestibular Goals Five Impairment Positive Madison-Hallpike test bilaterally Short Term Goal (STG) Pt to test negative with all positional testing bilaterally STG Duration 08/26/22 Four Impairment Decreased safety with gait Impairment 5XSTS in 12 secs (fall risk >= 12 secs, norm for 80-89 yo's is 14.8 secs) TUG - assessed is 19 & 15 secs (avg for 80-89 yo women is 17.2 secs) Gait speed - assessed on is 2.5 ft/sec. Short Term Goal (STG) Improve 5XSTS score or TUG score <14 secs, indicating decreased risk of falls. 05/17/22: TUG (2 trials) 19 & 15 secs. STG Duration 08/26/22 progressing 05/17/22. Gyroscope Technician Goal (LTG) Improve gait speed for safe community ambulation 2.62-3.94 ft/sec (safe to cross street gait speed of >3.9 ft/sec). 05/17/22: Gt speed is 2.5 ft/ sec. (: Gt speed 20'/8 = 2. 5 ft/sec) LTG Duration 10/24/22 Three Impairment Balance Impairment Initial Joshi Balance Score - 44 (20-39% impaired, score 34- 44) Initial: Pt falling 3x/week or 3x/month. Short Term Goal (STG) Pt will improve balance as noted with no LOB on stairs STG Duration 08/26/22 Half-Way Goal (LTG) Improve balance per Joshi Balance score >44 (1-19% impaired, score 45-55), with pt falling no more than (was 3x/week) or no more than 1x/ month with use of assistive device. LTG Duration 10/24/22 Two Impairment Decreased LE Strength/ decreased endurance Impairment Initial 30 sec chair stand is 7x (norm for 80-84 yo women is 9-14 times) Short Term Goal (STG) Improve 30 sec Chair Stand test to 9x, with pt able to walking around her home without holding onto the jarrell . STG Duration 08/26/22 Gyroscope Technician Goal (LTG) Pt will be able to join [employer] for an exercise program. LTG Duration 10/24/22 One Impairment Decreased function per ABC & DHI score Impairment ABC score 54.375 (40 <60% impaired, score 41-60) Dizziness Questionnaire 196 ( 100% impaired, score 100 or more) Short Term Goal (STG) Pt will be able to Squat (as her L knee pain allows) to reaching for low items without falling. STG Duration 08/26/22 Half-Way Goal (LTG) Improve function per ABC score >80 (1<20% impaired, score 81 -99). LTG Duration 10/24/22 Assessment Summary Assessment During left Madison-Hallpike test, pt complained of vertigo and demonstrated nystagmus, however pt unwilling to open eyes while dizzy, resulting in impossibility of determining directionality of nystagmus. Vertigo lasted approximately 15 seconds, consistent with diagnosis of left-sided BPPV, canalithiasis-type. Attempted left modified Kathrin, but upon getting to position two, pt had a stronger reaction, but once again closed her eyes. As left-Kathrin was already in progress, completed left Kathrin . Discussed with pt and daughter, pt did not want to go through further testing or CRM at this time, would rather return at next scheduled PT appointment to perform right Kathrin. Will likely benefit from further positional testing as tolerated in an effort to better determine directionality of nystagmus. Additionally, pt should continue with already established POC to improve gait, balance, and strength. Physical Therapy Plan Frequency and Duration Frequency of Treatment 2x/Week Plan of Care Start Date 07/26/22 Plan of Care End Date 10/24/22 Therapeutic Interventions Therapeutic Interventions Balance Training,Canalithic Repositioning,Gait Training, Home Exercise Program, Neuromuscular Re-education, Patient/Caregiver Education, Self-Care/Home Management, Therapeutic Activities, Therapeutic Exercises, Vestibular Rehabilitation Modalities Cold Pack/Ice Massage Next Visit Focus/Plan Next Note Type Treatment Note Next Visit Plan Next: Further vestibular testing/positional testing, CRM as indicated, as well as home Kathrin hand-out for daughter. Add LE strengthening (Ext rot) for HEP and review IR strengthening. Add resisted stair stepping for LE strengthening and PRE's as tolerated on L knee. Progress LE strengthening for stair ambulation safety Gait & Balance training to improve safety with gait and speed. Try Shuttle Balance with tilt to R side to encourage pt lean to L in standing and with activity. Cont pt/Caregiver education for HEP. Plan of Care Dates Plan of Care Start Date 07/26/22 Plan of Care End Date 10/24/22 Electronically Signed by: Elliott Hawkins, PT 07/26/22 1111 If you are in agreement with this Plan of Care, please return a signed and dated copy. I have reviewed this Plan of Care and certify that the skilled therapy services above are required to meet the patient?s needs. Physician Signature Date Printed Name and Credentials Clinical Instructor Signature Printed Name and Credentials
--- NOTE | 2022-07-29 10:54 | PT.OTN ---
Current Diagnoses Other specified disorders of brain (07/29/22) Pain in left knee (07/29/22) Muscle weakness (generalized) (07/29/22) Other abnormalities of gait and mobility (07/29/22) Repeated falls (07/29/22) Physical Therapy Treatment Note PT-OP-A Visit Information Start: 05/09/22 19:03 Freq: Status: Active Protocol: Document 07/29/22 10:30 DCW (Rec: 07/29/22 10:54 DCW [id number]) Out-Patient Physical Therapy Visit Information Visit Information Visit Type Treatment Note Visit Start Time 10:30 Visit Stop Time 10:50 Total Visit Minutes 20 Visit Number Evaluation Information Evaluation Date 05/14/22 Precautions Precautions s/p TRAVELING 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 PT-OP-B Current Condition Start: 05/09/22 19:03 Freq: Status: Active Protocol: Document 07/26/22 10:30 DCW (Rec: 07/26/22 11:10 DCW [id number]) Current Condition History of Current Condition Onset Date 03/04/22 Current Complaints Balance problem and weakness in LE's and low endurance History of Current Condition Surgery at for Ventriculoperitoneal (TRAVELING NURSE) shunt 03/04/22. Overnight hospitalization, then home. Has been walking around the house a couple times a day. Used to walk from home (near high school) to [employer] 4 yrs ago. Pt used to take care of house and yardwork, but not able to yet. She is walking at home around the house, touching/holding onto things for balance. Pt is walking outside by herself with a single point cane. Daughter states prior to surgery she had a magnet shuffling- Parkingson's type gait, but not since surgery. She used to fall 3x/week, but since her surgery has fallen 3 times, but balance is much improved and speed of walking has improved since surgery. Her neurologist at [facility] and at recommended physical therapy. PCP started referral. CARO was nurse practitioner at ER and now is a nurse in ER ([employer]). Works 3 -4x/weeks, therefore pt stays by self when DA works. DA is leaving State for reserve work 05/25-06/24; therefore the pt will be going to stay with her other daughter out of state. 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 Reports she does not do anything at the hair salon or the dentist's office that requires her to lay her head back far. Admits she has had CRM off and on from different ENTs, both when they were visiting [place] and locally. Prior Treatments and Tests None. Future Testing and Treatments Planned Dr. Kirk f/u visit @ . No future appts with PCP. Developmental History Developmental History Attended [facility] until end of February 2022 due to falls, then insurance changed. Was falling frequently prior to surgery and since surgery has fallen 3x. DA reports pt has pain in L back and L medial knee pain from previous falls (L knee pain from landing on the knee from slipping on leaves outside). Treatment Goals Patient/Caregiver Goals Pt goals per DA interpretation : - Better balance not LOB on stairs, and - Falling no more than (was 3x /week) once per month with use of assistive device as needed . - Squat (as her L knee pain allows) to reaching for low items without falling. - Join [employer] for exercise. - Walking around home without holding onto the jarrell. Prior Functional Status Baseline Function- ADL's Modified Independent Baseline Function- Mobility Modified Independent Baseline Function- Gait Walked with Hortencia Baseline Function- Other Fell 3-4x/week. Current Functional Impairments (Reported) Functional Limitations- ADL's Ambulates 15 stairs to get to bedroom using railing on both sides (except 20 ft no railing ). Has fallen down stairs ( holding her dog, who is now ). Walking around the house holding onto things Walkiing outside with SPC on concrete with a little incline ~ 1 blocks. Functional Limitations- Mobility/Gait Independent ADLs. Personal Factors Other Personal Factors That May Effect Pt [place] language is [place]. Therapy/Recovery Daughter (CARO) is her side stapler. Pt lives with CARO who works 8- 12 hour days on tapper operator and is alone when DA. Pt walks alone with SPC, no life alert. Pt has fallen down stairs backwards when using stairs with carrying objects in hands . PT-OP-C Subjective Start: 05/09/22 19:03 Freq: Status: Active Protocol: Document 07/29/22 10:30 DCW (Rec: 07/29/22 10:54 DCW [id number]) OP-PT Subjective Patient Comments Patient Comments Pt reports no dizziness since last visit. PT-OP-D Balance Start: 05/09/22 19:03 Freq: Status: Active Protocol: Document 05/14/22 09:50 LRN (Rec: 05/14/22 12:37 LRN [id number]) Joshi Balance Assessment Evaluation Sitting to Standing Ability Independent w/out Hands Unsupported Stance Safely- 2 minutes Sitting Unsupported, Feet on Floor Safely- 2 minutes Standing to Sitting Ability Safely, Minimal Hand Use Transfer Ability Safely, Minimal Hand Use Unsupported Stance- Eyes Closed Safely, 10 seconds Unsupported Stance- Eyes Open Independent, 1 minute Reaching Forward Standing Safely, 5 inches Pick- Up Object From Floor Independent/Safe Look Behind Shoulder - Standing Shifts Weight Unilateral Turning 360 Degrees Turns slowly, but safely Unsupported Stance, Alternating Feet on (I)- 8 Steps in > 20 secs Stair Unsupported Tandem Stance Balance Lost- Step/Stand Unilateral Leg Stance Lifts Leg/Unable to Hold Total Score Joshi Total Score (out of 56 points) 44 Joshi Impairment Rating 20 to 39% Impaired (Score 34- 44) PT-OP-E Functional Tests Start: 05/09/22 19:03 Freq: Status: Active Protocol: Document 05/17/22 09:50 LRN (Rec: 05/17/22 10:33 LRN [id number]) Functional Tests Other Gait Speed Name of Test Gait speed Score 20'/8 sec=2.5 ft/sec Comment 2.62-3.94 ft/sec for community gait speed PT-OP-G Mobility & Gait Start: 05/09/22 19:03 Freq: Status: Active Protocol: Document 05/14/22 09:50 LRN (Rec: 05/14/22 12:37 LRN [id number]) OP Mobility Evaluation Bed Mobility Supine to and from Sit Independent. PT-OP-H Neuro Start: 05/09/22 19:03 Freq: Status: Active Protocol: Document 05/14/22 09:50 LRN (Rec: 05/14/22 12:37 LRN [id number]) Sensation Evaluation Gross Sensation Gross Sensation WNL PT-OP-M Strength Start: 05/09/22 19:03 Freq: Status: Active Protocol: Document 05/24/22 09:04 LRN (Rec: 05/24/22 09:49 LRN [id number]) Hip Strength Hip Manual Muscle Testing Right Flexion (L2) 3 Fair Abduction 3 Fair Adduction 5 Normal External Rotation 5 Normal Internal Rotation 3 Fair Left Flexion (L2) 3 Fair Abduction 3 Fair Adduction 3 Fair External Rotation 3 Fair Internal Rotation 3 Fair PT-OP-O Vestibular Start: 07/26/22 10:56 Freq: Status: Active Protocol: Document 07/29/22 10:30 DCW (Rec: 07/29/22 10:54 DCW [id number]) Vestibular Assessment Positional Testing Mariela-Hallpike Positive Right,Negative Left,< 60 Seconds Comments Vestibular Comments Pt again had difficulty keeping eyes open during dizziness, appeared to be upbeating with right Mariela- Hallpike PT-OP-Q Treatments Start: 05/09/22 19:03 Freq: Status: Active Protocol: Document 07/29/22 10:30 DCW (Rec: 07/29/22 10:54 DCW [id number]) Canalithic Repositioning BPPV Treatment Kathrin Affected Canal(s) Right posterior? Reps x1 PT-OP-T Assessment and Plan Start: 05/09/22 19:03 Freq: Status: Active Protocol: Document 07/29/22 10:30 DCW (Rec: 07/29/22 10:54 DCW [id number]) Physical Therapy Assessment Impairments Impairments Activity Tolerance,Balance, Gait,Strength,Vestibular Goals Five Impairment Positive Mariela-Hallpike test bilaterally Short Term Goal (STG) Pt to test negative with all positional testing bilaterally STG Duration 08/26/22 Four Impairment Decreased safety with gait Impairment 5XSTS in 12 secs (fall risk >= 12 secs, norm for 80-89 yo's is 14.8 secs) TUG - assessed is 19 & 15 secs (avg for 80-89 yo women is 17.2 secs) Gait speed - assessed on is 2.5 ft/sec. Short Term Goal (STG) Improve 5XSTS score or TUG score <14 secs, indicating decreased risk of falls. 05/17/22: TUG (2 trials) 19 & 15 secs. STG Duration 08/26/22 progressing 05/17/22. Snf Goal (LTG) Improve gait speed for safe community ambulation 2.62-3.94 ft/sec (safe to cross street gait speed of >3.9 ft/sec). 05/17/22: Gt speed is 2.5 ft/ sec. (: Gt speed 20'/8 = 2. 5 ft/sec) LTG Duration 10/24/22 Three Impairment Balance Impairment Initial Joshi Balance Score - 44 (20-39% impaired, score 34- 44) Initial: Pt falling 3x/week or 3x/month. Short Term Goal (STG) Pt will improve balance as noted with no LOB on stairs STG Duration 08/26/22 Circulation Crew Leader Goal (LTG) Improve balance per Joshi Balance score >44 (1-19% impaired, score 45-55), with pt falling no more than (was 3x/week) or no more than 1x/ month with use of assistive device. LTG Duration 10/24/22 Two Impairment Decreased LE Strength/ decreased endurance Impairment Initial 30 sec chair stand is 7x (norm for 80-84 yo women is 9-14 times) Short Term Goal (STG) Improve 30 sec Chair Stand test to 9x, with pt able to walking around her home without holding onto the jarrell . STG Duration 08/26/22 Snf Goal (LTG) Pt will be able to join [facility] for an exercise program. LTG Duration 10/24/22 One Impairment Decreased function per ABC & DHI score Impairment ABC score 54.375 (40 <60% impaired, score 41-60) Dizziness Questionnaire 196 ( 100% impaired, score 100 or more) Short Term Goal (STG) Pt will be able to Squat (as her L knee pain allows) to reaching for low items without falling. STG Duration 08/26/22 Snf Goal (LTG) Improve function per ABC score >80 (1<20% impaired, score 81 -99). LTG Duration 10/24/22 Assessment Summary Assessment Right Mariela-Hallpike testing was positive today, although unable to determine for sure direction of nystagmus. Performed right modified Kathrin , pt reported symptoms in first and third positions, which is typically indicative of a successful treatment. Pt not particularly interested in further testing during today's session. Plan to return to prior POC with balance and strengthening, continue with vestibular rehabilitation as needed, per pt subjective reports. Did give pt's daughter hand out and discussed home Kathrin maneuver. Physical Therapy Plan Frequency and Duration Frequency of Treatment 2x/Week Plan of Care Start Date 07/26/22 Plan of Care End Date 10/24/22 Therapeutic Interventions Therapeutic Interventions Balance Training,Canalithic Repositioning,Gait Training, Home Exercise Program, Neuromuscular Re-education, Patient/Caregiver Education, Self-Care/Home Management, Therapeutic Activities, Therapeutic Exercises, Vestibular Rehabilitation Modalities Cold Pack/Ice Massage Next Visit Focus/Plan Next Note Type Treatment Note Next Visit Plan Next: Add LE strengthening ( Ext rot) for HEP and review IR strengthening. Add resisted stair stepping for LE strengthening and PRE's as tolerated on L knee. Progress LE strengthening for stair ambulation safety Gait & Balance training to improve safety with gait and speed. Try Shuttle Balance with tilt to R side to encourage pt lean to L in standing and with activity. Cont pt/Caregiver education for HEP.
--- NOTE | 2022-08-01 17:41 | PT.OTN ---
Current Diagnoses Other specified disorders of brain (08/01/22) Pain in left knee (08/01/22) Muscle weakness (generalized) (08/01/22) Other abnormalities of gait and mobility (08/01/22) Repeated falls (08/01/22) Physical Therapy Treatment Note PT-OP-A Visit Information Start: 05/09/22 19:03 Freq: Status: Active Protocol: Document 08/01/22 08:17 LRN (Rec: 08/01/22 09:03 LRN [id number]) Out-Patient Physical Therapy Visit Information Visit Information Visit Type Treatment Note Visit Note 2 after PN Visit Start Time 08:17 Visit Stop Time 08:55 Total Visit Minutes 38 Visit Number Evaluation Information Evaluation Date 05/14/22 Precautions Precautions s/p HEEL ATTACHER (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 PT-OP-B Current Condition Start: 05/09/22 19:03 Freq: Status: Active Protocol: Document 07/26/22 10:30 DCW (Rec: 07/26/22 11:10 DCW [id number]) Current Condition History of Current Condition Onset Date 03/04/22 Current Complaints Balance problem and weakness in LE's and low endurance History of Current Condition Surgery at for Ventriculoperitoneal (HEEL ATTACHER) shunt 03/04/22. Overnight hospitalization, then home. Has been walking around the house a couple times a day. Used to walk from home (near high school) to [employer] 4 yrs ago. Pt used to take care of house and yardwork, but not able to yet. She is walking at home around the house, touching/holding onto things for balance. Pt is walking outside by herself with a single point cane. Daughter states prior to surgery she had a magnet shuffling- Parkingson's type gait, but not since surgery. She used to fall 3x/week, but since her surgery has fallen 3 times, but balance is much improved and speed of walking has improved since surgery. Her neurologist at [facility] and at recommended physical therapy. PCP started referral. CARO was nurse practitioner at ER and now is a nurse in ER ([employer]). Works 3 -4x/weeks, therefore pt stays by self when CARO works. CARO is leaving [place] for reserve work 05/25-06/24; therefore the pt will be going to stay with her other daughter out of state. 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 Reports she does not do anything at the hair salon or the dentist's office that requires her to lay her head back far. Admits she has had CRM off and on from different ENTs, both when they were visiting [place] and locally. Prior Treatments and Tests None. Future Testing and Treatments Planned Dr. Kirk f/u visit @ . No future appts with PCP. Developmental History Developmental History Attended [place] [facility] until end of February 2022 due to falls, then insurance changed. Was falling frequently prior to surgery and since surgery has fallen 3x. DA reports pt has pain in L back and L medial knee pain from previous falls (L knee pain from landing on the knee from slipping on leaves outside). Treatment Goals Patient/Caregiver Goals Pt goals per DA interpretation : - Better balance not LOB on stairs, and - Falling no more than (was 3x /week) once per month with use of assistive device as needed . - Squat (as her L knee pain allows) to reaching for low items without falling. - Join [employer] for exercise. - Walking around home without holding onto the jarrell. Prior Functional Status Baseline Function- ADL's Modified Independent Baseline Function- Mobility Modified Independent Baseline Function- Gait Walked with Hortencia Baseline Function- Other Fell 3-4x/week. Current Functional Impairments (Reported) Functional Limitations- ADL's Ambulates 15 stairs to get to bedroom using railing on both sides (except 20 ft no railing ). Has fallen down stairs ( holding her dog, who is now ). Walking around the house holding onto things Walkiing outside with SPC on concrete with a little incline ~ 1 blocks. Functional Limitations- Mobility/Gait Independent ADLs. Personal Factors Other Personal Factors That May Effect Pt timbi-sha shoshone language is Faroese. Therapy/Recovery Daughter (CARO) is her wind turbine machinist. Pt lives with CARO who works 8- 12 hour days on buffing machine operator and is alone when DA. Pt walks alone with SPC, no life alert. Pt has fallen down stairs backwards when using stairs with carrying objects in hands . PT-OP-C Subjective Start: 05/09/22 19:03 Freq: Status: Active Protocol: Document 08/01/22 08:17 LRN (Rec: 08/01/22 09:03 LRN [id number]) OP-PT Subjective Patient Comments Patient Comments Pt DA states pt reports feeling better, less complaints first in AM. PT-OP-D Balance Start: 05/09/22 19:03 Freq: Status: Active Protocol: Document 08/01/22 08:17 LRN (Rec: 08/01/22 17:37 LRN [id number]) Joshi Balance Assessment Evaluation Sitting to Standing Ability Independent w/out Hands Unsupported Stance Safely- 2 minutes Sitting Unsupported, Feet on Floor Safely- 2 minutes Standing to Sitting Ability Safely, Minimal Hand Use Transfer Ability Safely, Minimal Hand Use Unsupported Stance- Eyes Closed Safely, 10 seconds Unsupported Stance- Eyes Open Independent, 1 minute Reaching Forward Standing Confidently, 10 inches Pick- Up Object From Floor Independent/Safe Look Behind Shoulder - Standing Shifts Weight Well Turning 360 Degrees Turns slowly, but safely Unsupported Stance, Alternating Feet on (I)- 8 Steps in 20 secs Stair Unsupported Tandem Stance Balance Lost- Step/Stand Unilateral Leg Stance Lifts Leg/Unable to Hold Total Score Joshi Total Score (out of 56 points) 47 Joshi Impairment Rating 1 to 19% Impaired (Score 45-55 ) PT-OP-E Functional Tests Start: 05/09/22 19:03 Freq: Status: Active Protocol: Document 08/01/22 08:17 LRN (Rec: 08/01/22 09:03 LRN [id number]) Functional Tests 30 Second Sit to Stand Test Score 11 Comments Norm for 80-84 yo women is 9- 14x. Five Times Sit to Stand Test Score 19, 12 secs Comments Norm for 80-89 yo's is 14.8 secs. Fall risk if > or = 12 secs Timed Up and Go (TUG) Score 12 Comments No use of hands, from webbed chairl, slip ons. TUG Impairment Rating 20 to <40% Impaired (Score 12- 13) Other Gait Speed Name of Test Gait speed Score 20'/6 = 3.33 ft/sec Comment 2.62-3.94 ft/sec for community gait speed PT-OP-G Mobility & Gait Start: 05/09/22 19:03 Freq: Status: Active Protocol: Document 05/14/22 09:50 LRN (Rec: 05/14/22 12:37 LRN [id number]) OP Mobility Evaluation Bed Mobility Supine to and from Sit Independent. PT-OP-H Neuro Start: 05/09/22 19:03 Freq: Status: Active Protocol: Document 05/14/22 09:50 LRN (Rec: 05/14/22 12:37 LRN [id number]) Sensation Evaluation Gross Sensation Gross Sensation WNL PT-OP-M Strength Start: 05/09/22 19:03 Freq: Status: Active Protocol: Document 05/24/22 09:04 LRN (Rec: 05/24/22 09:49 LRN [id number]) Hip Strength Hip Manual Muscle Testing Right Flexion (L2) 3 Fair Abduction 3 Fair Adduction 5 Normal External Rotation 5 Normal Internal Rotation 3 Fair Left Flexion (L2) 3 Fair Abduction 3 Fair Adduction 3 Fair External Rotation 3 Fair Internal Rotation 3 Fair PT-OP-O Vestibular Start: 07/26/22 10:56 Freq: Status: Active Protocol: Document 07/29/22 10:30 DCW (Rec: 07/29/22 10:54 DCW [id number]) Vestibular Assessment Positional Testing Mariela-Hallpike Positive Right,Negative Left,< 60 Seconds Comments Vestibular Comments Pt again had difficulty keeping eyes open during dizziness, appeared to be upbeating with right [place]- Hallpike PT-OP-Q Treatments Start: 05/09/22 19:03 Freq: Status: Active Protocol: Document 08/01/22 08:17 LRN (Rec: 08/01/22 17:37 LRN [id number]) Therapeutic Exercises Standing Exercises Gait 20' Reps/Minutes 25' x 4 Comments Extra time for DA to interpret explanation of activity in pt 's timbi-[place] shosh[place] langu Neuro Re-Education Treatment Balance Activities Foot taps Details Alternating foot taps on 6 step Reps/Duration 8x 2 Comments Extra time for DA to interpret explanation of activity in pt 's timbi-sha shoshone language. 360 deg Turning Details 360 deg turning Surface level Comments Extra time for DA to interpret explanation of activity in pt 's timbi-sha shoshone language. Weight shifting Details Looking behind, wgt shift with progressive increase in shifting of weight Surface level Comments Extra time for DA to interpret explanation of activity in pt 's timbi-[place] shoshone language. Standing balance Details EO, EC, feet together, feet apart Surface Level Comments Extra time for DA to interpret explanation of activity in pt 's timbi-[place] shosh[place] language. Reaching Details Reaching forward and onto floor Surface Level Reps/Duration 2x Comments Extra time for DA to interpret explanation of activity in pt 's timbi-sha shoshone language. PT-OP-T Assessment and Plan Start: 05/09/22 19:03 Freq: Status: Active Protocol: Document 08/01/22 08:17 LRN (Rec: 08/01/22 09:03 LRN [id number]) Physical Therapy Assessment Goals Five Impairment Positive [place]-Hallpike test bilaterally Short Term Goal (STG) Pt to test negative with all positional testing bilaterally STG Duration 08/26/22 Four Impairment Decreased safety with gait Impairment 5XSTS in 12 secs (fall risk >= 12 secs, norm for 80-89 yo's is 14.8 secs) TUG - assessed is 19 & 15 secs (avg for 80-89 yo women is 17.2 secs) Gait speed - assessed on is 2.5 ft/sec. Short Term Goal (STG) Improve 5XSTS score or TUG score <14 secs, indicating decreased risk of falls. 05/17/22: TUG (2 trials) 19 & 15 secs. 08/01/22: TUG 12 secs. STG Duration 08/26/22 (08/01/22: MET GOAL) Senior Care Goal (LTG) Improve gait speed for safe community ambulation 2.62-3.94 ft/sec (safe to cross street gait speed of >3.9 ft/sec). 05/17/22: Gt speed is 2.5 ft/ sec. (: Gt speed 20'/8 = 2. 5 ft/sec) 08/01/22: Gt speed 20'/6 = 3. 33 ft/sec. LTG Duration 10/24/22 (08/01/22: MET GOAL) Three Impairment Balance Impairment Initial Joshi Balance Score - 44 (20-39% impaired, score 34- 44) Initial: Pt falling 3x/week or 3x/month. Short Term Goal (STG) Pt will improve balance as noted with no LOB on stairs STG Duration 08/26/22 Assistant Case Manager Goal (LTG) Improve balance per Joshi Balance score >44 (1-19% impaired, score 45-55), with pt falling no more than (was 3x/week) or no more than 1x/ month with use of assistive device. 08/01/22: JOSHI score 47 (1-19% impaired, score 45-55). LTG Duration 10/24/22 (08/01/22: JOSHI score goal met) Two Impairment Decreased LE Strength/ decreased endurance Impairment Initial 30 sec chair stand is 7x (norm for 80-84 yo women is 9-14 times) Short Term Goal (STG) Improve 30 sec Chair Stand test to 9x, with pt able to walking around her home without holding onto the jarrell . 08/01/22: 30 Sec Chair Stand test - 11 reps. Pt walking around her home sometimes reaching out. STG Duration 08/26/22 (08/11/22: Partially met goal) Senior Care Goal (LTG) Pt will be able to join [employer] for an exercise program. LTG Duration 10/24/22 One Impairment Decreased function per ABC & DHI score Impairment ABC score 54.375 (40 <60% impaired, score 41-60) Dizziness Questionnaire 196 ( 100% impaired, score 100 or more) Short Term Goal (STG) Pt will be able to Squat (as her L knee pain allows) to reaching for low items without falling. STG Duration 08/26/22 Assistant Case Manager Goal (LTG) Improve function per ABC score >80 (1<20% impaired, score 81 -99). LTG Duration 10/24/22 Assessment Summary Assessment Areas of focus for next 4 weeks should be on balance, coordination, and LE strengthening. Pt gait speed is much improved and shows appropriate speed for community ambulation. 5TSTS test initially indicated pt at risk of falling, but with further explanation by daughter, the pt was able to achieve a score that placed her at borderline risk of falling. Her Balance score improved from 44 to 47, indicating less impairement. Pt had some difficulty lifting her foot for foot taps on stairs, probably due to poor balance or decreased proprioception and coordination of movement. Physical Therapy Plan Frequency and Duration Frequency of Treatment 2x/Week Plan of Care Start Date 07/26/22 Plan of Care End Date 10/24/22 Next Visit Focus/Plan Next Note Type Treatment Note Next Visit Plan Next: Assess goal #1 & 3 function. Add LE strengthening (ER) for HEP and review IR strengthening. Add resisted stair stepping for LE strengthening and PRE's as tolerated on L knee. Progress Balalnce/Coordination /LE strengthening for stair ambulation safety Gait & Balance training to improve safety with gait and speed. Try Shuttle Balance with tilt to R side to encourage pt lean to L in standing and with activity. Cont pt/Caregiver education for HEP.
--- NOTE | 2022-09-17 18:06 | PT.OTN ---
Current Diagnoses Other specified disorders of brain (09/17/22) Pain in left knee (09/17/22) Muscle weakness (generalized) (09/17/22) Other abnormalities of gait and mobility (09/17/22) Repeated falls (09/17/22) Physical Therapy Treatment Note PT-OP-A Visit Information Start: 05/09/22 19:03 Freq: Status: Active Protocol: Document 09/17/22 13:04 LRN (Rec: 09/17/22 13:52 LRN [id number]) Out-Patient Physical Therapy Visit Information Visit Information Visit Type Progress Note Visit Start Time 13:04 Visit Stop Time 13:50 Total Visit Minutes 46 Visit Number Evaluation Information Evaluation Date 05/14/22 Precautions Precautions 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 PT-OP-B Current Condition Start: 05/09/22 19:03 Freq: Status: Active Protocol: Document 07/26/22 10:30 DCW (Rec: 07/26/22 11:10 DCW [id number]) Current Condition History of Current Condition Onset Date 03/04/22 Current Complaints Balance problem and weakness in LE's and low endurance History of Current Condition Surgery at for Ventriculoperitoneal (PLANT TAXONOMIST) shunt 03/04/22. Overnight hospitalization, then home. Has been walking around the house a couple times a day. Used to walk from home (near high school) to [employer] 4 yrs ago. Pt used to take care of house and yardwork, but not able to yet. She is walking at home around the house, touching/holding onto things for balance. Pt is walking outside by herself with a single point cane. Daughter states prior to surgery she had a magnet shuffling- Parkingson's type gait, but not since surgery. She used to fall 3x/week, but since her surgery has fallen 3 times, but balance is much improved and speed of walking has improved since surgery. Her neurologist at [facility] and at recommended physical therapy. PCP started referral. CARO was nurse practitioner at ER and now is a nurse in ER ([employer]). Works 3 -4x/weeks, therefore pt stays by self when DA works. DA is leaving [place] for reserve work 05/25-06/24; therefore the pt will be going to stay with her other daughter out of state. 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 Reports she does not do anything at the hair salon or the dentist's office that requires her to lay her head back far. Admits she has had CRM off and on from different ENTs, both when they were visiting [place] and locally. Prior Treatments and Tests None. Future Testing and Treatments Planned Dr. Kirk f/u visit @ . No future appts with PCP. Developmental History Developmental History Attended [facility] until end of February 2022 due to falls, then insurance changed. Was falling frequently prior to surgery and since surgery has fallen 3x. DA reports pt has pain in L back and L medial knee pain from previous falls (L knee pain from landing on the knee from slipping on leaves outside). Treatment Goals Patient/Caregiver Goals Pt goals per DA interpretation : - Better balance not LOB on stairs, and - Falling no more than (was 3x /week) once per month with use of assistive device as needed . - Squat (as her L knee pain allows) to reaching for low items without falling. - Join [employer] for exercise. - Walking around home without holding onto the jarrell. Prior Functional Status Baseline Function- ADL's Modified Independent Baseline Function- Mobility Modified Independent Baseline Function- Gait Walked with Hortencia Baseline Function- Other Fell 3-4x/week. Current Functional Impairments (Reported) Functional Limitations- ADL's Ambulates 15 stairs to get to bedroom using railing on both sides (except 20 ft no railing ). Has fallen down stairs ( holding her dog, who is now ). Walking around the house holding onto things Walkiing outside with SPC on concrete with a little incline ~ 1 blocks. Functional Limitations- Mobility/Gait Independent ADLs. Personal Factors Other Personal Factors That May Effect Pt [place] language is Hebrew. Therapy/Recovery Daughter (CARO) is her reconciliation accountant. Pt lives with CARO who works 8- 12 hour days on director of operations home health and is alone when DA. Pt walks alone with SPC, no life alert. Pt has fallen down stairs backwards when using stairs with carrying objects in hands . PT-OP-C Subjective Start: 05/09/22 19:03 Freq: Status: Active Protocol: Document 09/17/22 13:04 LRN (Rec: 09/17/22 13:52 LRN [id number]) OP-PT Subjective Patient Comments Patient Comments States they just got back from [place] last night and pt hasn 't been able to go out and walk due to bad weather. No dizziness. Not able to do the exercises, but did functional things. Patient Questionnaires ABC- Activity Specific Balance Confidence Scale ABC Score 56.25 ABC Functional Impairment 40 to <60% Impaired (Score 41- 60) PT-OP-D Balance Start: 05/09/22 19:03 Freq: Status: Active Protocol: Document 09/17/22 13:04 LRN (Rec: 09/17/22 13:52 LRN [id number]) Balance Tests Single Limb Standing Single Limb- Right 1 Single Limb- Left 2 Tandem Tandem Standing 1 Joshi Balance Assessment Evaluation Sitting to Standing Ability Independent w/out Hands Unsupported Stance Safely- 2 minutes Sitting Unsupported, Feet on Floor Safely- 2 minutes Standing to Sitting Ability Safely, Minimal Hand Use Transfer Ability Safely, Minimal Hand Use Unsupported Stance- Eyes Closed Safely, 10 seconds Unsupported Stance- Eyes Open Independent, 1 minute Reaching Forward Standing Confidently, 10 inches Pick- Up Object From Floor Independent/Safe Look Behind Shoulder - Standing Shifts Weight Well Turning 360 Degrees Turns slowly, but safely Unsupported Stance, Alternating Feet on (I)- 8 Steps in 20 secs Stair Unsupported Tandem Stance Balance Lost- Step/Stand Unilateral Leg Stance Lifts Leg/Unable to Hold Total Score Joshi Total Score (out of 56 points) 47 Joshi Impairment Rating 1 to 19% Impaired (Score 45-55 ) PT-OP-E Functional Tests Start: 05/09/22 19:03 Freq: Status: Active Protocol: Document 08/01/22 08:17 LRN (Rec: 08/01/22 09:03 LRN [id number]) Functional Tests 30 Second Sit to Stand Test Score 11 Comments Norm for 80-84 yo women is 9- 14x. Five Times Sit to Stand Test Score 19, 12 secs Comments Norm for 80-89 yo's is 14.8 secs. Fall risk if > or = 12 secs Timed Up and Go (TUG) Score 12 Comments No use of hands, from webbed chairl, slip ons. TUG Impairment Rating 20 to <40% Impaired (Score 12- 13) Other Gait Speed Name of Test Gait speed Score 20'/6 = 3.33 ft/sec Comment 2.62-3.94 ft/sec for community gait speed PT-OP-G Mobility & Gait Start: 05/09/22 19:03 Freq: Status: Active Protocol: Document 09/17/22 13:04 LRN (Rec: 09/17/22 13:52 LRN [id number]) OP Gait Assessment Gait Gait Assistance Required: Independent Able to Maintain Weight Bearing Status Yes During Gait Assistive Devices Assistive Device Straight Cane PT-OP-H Neuro Start: 05/09/22 19:03 Freq: Status: Active Protocol: Document 05/14/22 09:50 LRN (Rec: 05/14/22 12:37 LRN [id number]) Sensation Evaluation Gross Sensation Gross Sensation WNL PT-OP-M Strength Start: 05/09/22 19:03 Freq: Status: Active Protocol: Document 05/24/22 09:04 LRN (Rec: 05/24/22 09:49 LRN [id number]) Hip Strength Hip Manual Muscle Testing Right Flexion (L2) 3 Fair Abduction 3 Fair Adduction 5 Normal External Rotation 5 Normal Internal Rotation 3 Fair Left Flexion (L2) 3 Fair Abduction 3 Fair Adduction 3 Fair External Rotation 3 Fair Internal Rotation 3 Fair PT-OP-O Vestibular Start: 07/26/22 10:56 Freq: Status: Active Protocol: Document 07/29/22 10:30 DCW (Rec: 07/29/22 10:54 DCW [id number]) Vestibular Assessment Positional Testing Mariela-Hallpike Positive Right,Negative Left,< 60 Seconds Comments Vestibular Comments Pt again had difficulty keeping eyes open during dizziness, appeared to be upbeating with right Mariela- Hallpike PT-OP-Q Treatments Start: 05/09/22 19:03 Freq: Status: Active Protocol: Document 09/17/22 13:04 LRN (Rec: 09/17/22 13:52 LRN [id number]) Therapeutic Exercises Sitting Exercises L hip ER strengthening Sitting Exercise Name Moving ankle towards other knee Side right Reps/Minutes 10' Comments Extra time taken to teach ex w /daughter as reconciliation accountant. Neuro Re-Education Treatment Balance Activities Foot taps Details Alternating foot taps on 6 step Reps/Duration 8x 2 Comments Extra time for DA to interpret explanation of activity in pt 's [place] language. 360 deg Turning Details 360 deg turning Surface level Comments Extra time for DA to interpret explanation of activity in pt 's [place] language. Standing balance Details EO, EC, feet together, feet apart Surface Level Comments Extra time for DA to interpret explanation of activity in pt 's [place] language. Reaching Details Reaching forward and onto floor Surface Level Reps/Duration 2x Comments Extra time for DA to interpret explanation of activity in pt 's [place] language. Self-Care/Home Management Treatment Education Patient Education Home Exercise Program Activities Self-Care/Home Management Activities Issued & reviewed HEP: sitting active hip ER strength ( moving into ER) verbal I/S to combine with active hip IR (LE chuckie wipe ex). PT-OP-T Assessment and Plan Start: 05/09/22 19:03 Freq: Status: Active Protocol: Document 09/17/22 13:04 LRN (Rec: 09/17/22 13:52 LRN [id number]) Physical Therapy Assessment Rehab Potential Rehabilitation Potential Good Evaluation Complexity Number of Personal Factors/Comorbidities 1-2 Number of Body Systems Impaired 3 Clinical Presentation at Evaluation Evolving Impairments Impairments Activity Tolerance,Balance, Gait,Strength,Vestibular Goals Five Impairment Positive Mariela-Hallpike test bilaterally Short Term Goal (STG) Pt to test negative with all positional testing bilaterally STG Duration 08/26/22 Four Impairment Decreased safety with gait Impairment 5XSTS in 12 secs (fall risk >= 12 secs, norm for 80-89 yo's is 14.8 secs) TUG - assessed is 19 & 15 secs (avg for 80-89 yo women is 17.2 secs) Gait speed - assessed on is 2.5 ft/sec. Short Term Goal (STG) Improve 5XSTS score or TUG score <14 secs, indicating decreased risk of falls. 05/17/22: TUG (2 trials) 19 & 15 secs. 08/01/22: TUG 12 secs. STG Duration 08/26/22 (08/01/22: MET GOAL) Medical Records Auditor Goal (LTG) Improve gait speed for safe community ambulation 2.62-3.94 ft/sec (safe to cross street gait speed of >3.9 ft/sec). 05/17/22: Gt speed is 2.5 ft/ sec. (: Gt speed 20'/8 = 2. 5 ft/sec) 08/01/22: Gt speed 20'/6 = 3. 33 ft/sec. LTG Duration 10/24/22 (08/01/22: MET GOAL) Three Impairment Balance Impairment Initial Joshi Balance Score - 44 (20-39% impaired, score 34- 44) Initial: Pt falling 3x/week or 3x/month. Short Term Goal (STG) Pt will improve balance as noted with no LOB on stairs. STG Duration 08/26/22 Medical Records Auditor Goal (LTG) Improve balance per Joshi Balance score >44 (1-19% impaired, score 45-55), with pt falling no more than (was 3x/week) or no more than 1x/ month with use of assistive device. 08/01/22: JOSHI score 47 (1-19% impaired, score 45-55). LTG Duration 10/24/22 (08/01/22: JOSHI score goal met) Two Impairment Decreased LE Strength/ decreased endurance Impairment Initial 30 sec chair stand is 7x (norm for 80-84 yo women is 9-14 times) Short Term Goal (STG) Improve 30 sec Chair Stand test to 9x, with pt able to walking around her home without holding onto the jarrell . 08/01/22: 30 Sec Chair Stand test - 11 reps. Pt walking around her home sometimes reaching out. STG Duration 08/26/22 (08/11/22: Partially met goal) Detention Goal (LTG) Pt will be able to join [facility] gym for an exercise program. LTG Duration 10/24/22 One Impairment Decreased function per ABC & DHI score Impairment ABC score 54.375 (40 <60% impaired, score 41-60) Dizziness Questionnaire 196 ( 100% impaired, score 100 or more) Short Term Goal (STG) Pt will be able to Squat (as her L knee pain allows) to reaching for low items without falling. 09/17/22: Pt able to semi-squat holding onto things at home. STG Duration 08/26/22 (09/17/22: MET GOAL). Detention Goal (LTG) Improve function per ABC score >80 (1<20% impaired, score 81 -99). 09/17/22: ABC score 56.25. LTG Duration 10/24/22 slightly improved . Assessment Summary Assessment Pt returns from trip with family where she was not able to walk outdoors due to inclement weather and was only able to self care exercises. Her Joshi Score is same, but pt is able to put self in tandem, but not able to maintain tandem stance. SLS was 2 sec left, 1 sec right. ABC Scale of 56.25 indicates pt is 40<60% impaired. The pt has kept up with her self care HEP. Physical Therapy Plan Frequency and Duration Frequency of Treatment 2x/Week Plan of Care Start Date 07/26/22 Plan of Care End Date 10/24/22 Therapeutic Interventions Therapeutic Interventions Balance Training,Canalithic Repositioning,Gait Training, Home Exercise Program, Neuromuscular Re-education, Patient/Caregiver Education, Self-Care/Home Management, Therapeutic Activities, Therapeutic Exercises, Vestibular Rehabilitation Modalities Cold Pack/Ice Massage Next Visit Focus/Plan Next Note Type Treatment Note Next Visit Plan Next: Check stair ambulation stability. Focus on balance and core stability. Review LE strengthening (ER) for HEP. Add resisted stair stepping for LE strengthening and PRE's as tolerated on L knee. Progress Balance/Coordination/ LE & core strengthening for stair ambulation safety. Balance training to improve safety with gait and improve speed. Try Shuttle Balance with tilt to R side to encourage pt lean to L in standing and with activity. Cont pt/Caregiver education for HEP.
--- NOTE | 2022-09-23 10:08 | PT.OTN ---
Current Diagnoses Other specified disorders of brain (09/23/22) Pain in left knee (09/23/22) Muscle weakness (generalized) (09/23/22) Other abnormalities of gait and mobility (09/23/22) Repeated falls (09/23/22) Physical Therapy Treatment Note PT-OP-A Visit Information Start: 05/09/22 19:03 Freq: Status: Active Protocol: Document 09/23/22 08:21 LRN (Rec: 09/23/22 09:03 LRN [id number]) Out-Patient Physical Therapy Visit Information Visit Information Visit Type Treatment Note Visit Start Time 08:21 Visit Stop Time 09:01 Total Visit Minutes 40 Visit Number Evaluation Information Evaluation Date 05/14/22 Precautions Precautions 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 PT-OP-B Current Condition Start: 05/09/22 19:03 Freq: Status: Active Protocol: Document 07/26/22 10:30 DCW (Rec: 07/26/22 11:10 DCW [id number]) Current Condition History of Current Condition Onset Date 03/04/22 Current Complaints Balance problem and weakness in LE's and low endurance History of Current Condition Surgery at for Ventriculoperitoneal (ELECTRO MECHANICAL DESIGNER) shunt 03/04/22. Overnight hospitalization, then home. Has been walking around the house a couple times a day. Used to walk from home (near high school) to [employer] 4 yrs ago. Pt used to take care of house and yardwork, but not able to yet. She is walking at home around the house, touching/holding onto things for balance. Pt is walking outside by herself with a single point cane. Daughter states prior to surgery she had a magnet shuffling- Parkingson's type gait, but not since surgery. She used to fall 3x/week, but since her surgery has fallen 3 times, but balance is much improved and speed of walking has improved since surgery. Her neurologist at [facility] and at recommended physical therapy. PCP started referral. CARO was nurse practitioner at ER and now is a nurse in ER ([employer]). Works 3 -4x/weeks, therefore pt stays by self when DA works. DA is leaving State for reserve work 05/25-06/24; therefore the pt will be going to stay with her other daughter out of state. 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 Reports she does not do anything at the hair salon or the dentist's office that requires her to lay her head back far. Admits she has had CRM off and on from different ENTs, both when they were visiting [place] and locally. Prior Treatments and Tests None. Future Testing and Treatments Planned Dr. Kirk f/u visit @ . No future appts with PCP. Developmental History Developmental History Attended [facility] until end of February 2022 due to falls, then insurance changed. Was falling frequently prior to surgery and since surgery has fallen 3x. DA reports pt has pain in L back and L medial knee pain from previous falls (L knee pain from landing on the knee from slipping on leaves outside). Treatment Goals Patient/Caregiver Goals Pt goals per DA interpretation : - Better balance not LOB on stairs, and - Falling no more than (was 3x /week) once per month with use of assistive device as needed . - Squat (as her L knee pain allows) to reaching for low items without falling. - Join [employer] for exercise. - Walking around home without holding onto the jarrell. Prior Functional Status Baseline Function- ADL's Modified Independent Baseline Function- Mobility Modified Independent Baseline Function- Gait Walked with Hortencia Baseline Function- Other Fell 3-4x/week. Current Functional Impairments (Reported) Functional Limitations- ADL's Ambulates 15 stairs to get to bedroom using railing on both sides (except 20 ft no railing ). Has fallen down stairs ( holding her dog, who is now ). Walking around the house holding onto things Walkiing outside with SPC on concrete with a little incline ~ 1 blocks. Functional Limitations- Mobility/Gait Independent ADLs. Personal Factors Other Personal Factors That May Effect Pt [place] language is German. Therapy/Recovery Daughter (CARO) is her paper cone grader. Pt lives with CARO who works 8- 12 hour days on horizontal boring mill operator and is alone when DA. Pt walks alone with SPC, no life alert. Pt has fallen down stairs backwards when using stairs with carrying objects in hands . PT-OP-C Subjective Start: 05/09/22 19:03 Freq: Status: Active Protocol: Document 09/23/22 08:21 LRN (Rec: 09/23/22 09:03 LRN [id number]) OP-PT Subjective Patient Comments Patient Comments Through interpretation pt reports she will try to walk around w/o touching jarrell, or will use her walking stick. PT-OP-D Balance Start: 05/09/22 19:03 Freq: Status: Active Protocol: Document 09/17/22 13:04 LRN (Rec: 09/17/22 13:52 LRN [id number]) Balance Tests Single Limb Standing Single Limb- Right 1 Single Limb- Left 2 Tandem Tandem Standing 1 Joshi Balance Assessment Evaluation Sitting to Standing Ability Independent w/out Hands Unsupported Stance Safely- 2 minutes Sitting Unsupported, Feet on Floor Safely- 2 minutes Standing to Sitting Ability Safely, Minimal Hand Use Transfer Ability Safely, Minimal Hand Use Unsupported Stance- Eyes Closed Safely, 10 seconds Unsupported Stance- Eyes Open Independent, 1 minute Reaching Forward Standing Confidently, 10 inches Pick- Up Object From Floor Independent/Safe Look Behind Shoulder - Standing Shifts Weight Well Turning 360 Degrees Turns slowly, but safely Unsupported Stance, Alternating Feet on (I)- 8 Steps in 20 secs Stair Unsupported Tandem Stance Balance Lost- Step/Stand Unilateral Leg Stance Lifts Leg/Unable to Hold Total Score Joshi Total Score (out of 56 points) 47 Joshi Impairment Rating 1 to 19% Impaired (Score 45-55 ) PT-OP-E Functional Tests Start: 05/09/22 19:03 Freq: Status: Active Protocol: Document 08/01/22 08:17 LRN (Rec: 08/01/22 09:03 LRN [id number]) Functional Tests 30 Second Sit to Stand Test Score 11 Comments Norm for 80-84 yo women is 9- 14x. Five Times Sit to Stand Test Score 19, 12 secs Comments Norm for 80-89 yo's is 14.8 secs. Fall risk if > or = 12 secs Timed Up and Go (TUG) Score 12 Comments No use of hands, from webbed chairl, slip ons. TUG Impairment Rating 20 to <40% Impaired (Score 12- 13) Other Gait Speed Name of Test Gait speed Score 20'/6 = 3.33 ft/sec Comment 2.62-3.94 ft/sec for community gait speed PT-OP-G Mobility & Gait Start: 05/09/22 19:03 Freq: Status: Active Protocol: Document 09/17/22 13:04 LRN (Rec: 09/17/22 13:52 LRN [id number]) OP Gait Assessment Gait Gait Assistance Required: Independent Able to Maintain Weight Bearing Status Yes During Gait Assistive Devices Assistive Device Straight Cane PT-OP-H Neuro Start: 05/09/22 19:03 Freq: Status: Active Protocol: Document 05/14/22 09:50 LRN (Rec: 05/14/22 12:37 LRN [id number]) Sensation Evaluation Gross Sensation Gross Sensation WNL PT-OP-M Strength Start: 05/09/22 19:03 Freq: Status: Active Protocol: Document 05/24/22 09:04 LRN (Rec: 05/24/22 09:49 LRN [id number]) Hip Strength Hip Manual Muscle Testing Right Flexion (L2) 3 Fair Abduction 3 Fair Adduction 5 Normal External Rotation 5 Normal Internal Rotation 3 Fair Left Flexion (L2) 3 Fair Abduction 3 Fair Adduction 3 Fair External Rotation 3 Fair Internal Rotation 3 Fair PT-OP-O Vestibular Start: 07/26/22 10:56 Freq: Status: Active Protocol: Document 07/29/22 10:30 DCW (Rec: 07/29/22 10:54 DCW [id number]) Vestibular Assessment Positional Testing Mariela-Hallpike Positive Right,Negative Left,< 60 Seconds Comments Vestibular Comments Pt again had difficulty keeping eyes open during dizziness, appeared to be upbeating with right Mariela- Hallpike PT-OP-Q Treatments Start: 05/09/22 19:03 Freq: Status: Active Protocol: Document 09/23/22 08:21 LRN (Rec: 09/23/22 09:03 LRN [id number]) Neuro Re-Education Treatment Balance Activities Blue foam Details Feet apart, together and w/EC Equipment Blue Foam oval Hurdles Details Amarjit stepping: Hands on rails, finger tips. Equipment // bars Comments Assist needed to move hands fwd with stepping. Backward stepping on step Details 6 step: bwk steppin rails, finger support Equipment //bars Comments Cuing and assist for foot placement to neutral. Stairs Details 6 steps: With 2 rails, 1 rail, fingertips on rail. Equipment Railing Comments training needed for mvvt of hands on railing PT-OP-T Assessment and Plan Start: 05/09/22 19:03 Freq: Status: Active Protocol: Document 09/23/22 08:21 LRN (Rec: 09/23/22 09:03 LRN [id number]) Physical Therapy Assessment Goals Five Impairment Positive Roseboom-Hallpike test bilaterally Short Term Goal (STG) Pt to test negative with all positional testing bilaterally STG Duration 08/26/22 Four Impairment Decreased safety with gait Impairment 5XSTS in 12 secs (fall risk >= 12 secs, norm for 80-89 yo's is 14.8 secs) TUG - assessed is 19 & 15 secs (avg for 80-89 yo women is 17.2 secs) Gait speed - assessed on is 2.5 ft/sec. Short Term Goal (STG) Improve 5XSTS score or TUG score <14 secs, indicating decreased risk of falls. 05/17/22: TUG (2 trials) 19 & 15 secs. 08/01/22: TUG 12 secs. STG Duration 08/26/22 (08/01/22: MET GOAL) [facility] Goal (LTG) Improve gait speed for safe community ambulation 2.62-3.94 ft/sec (safe to cross street gait speed of >3.9 ft/sec). 05/17/22: Gt speed is 2.5 ft/ sec. (: Gt speed 20'/8 = 2. 5 ft/sec) 08/01/22: Gt speed 20'/6 = 3. 33 ft/sec. LTG Duration 10/24/22 (08/01/22: MET GOAL) Three Impairment Balance Impairment Initial Joshi Balance Score - 44 (20-39% impaired, score 34- 44) Initial: Pt falling 3x/week or 3x/month. Short Term Goal (STG) Pt will improve balance as noted with no LOB on stairs. STG Duration 08/26/22 Accounts Payable Bookkeeper Goal (LTG) Improve balance per Joshi Balance score >44 (1-19% impaired, score 45-55), with pt falling no more than (was 3x/week) or no more than 1x/ month with use of assistive device. 08/01/22: JOSHI score 47 (1-19% impaired, score 45-55). LTG Duration 10/24/22 (08/01/22: JOSHI score goal met) Two Impairment Decreased LE Strength/ decreased endurance Impairment Initial 30 sec chair stand is 7x (norm for 80-84 yo women is 9-14 times) Short Term Goal (STG) Improve 30 sec Chair Stand test to 9x, with pt able to walking around her home without holding onto the jarrell . 08/01/22: 30 Sec Chair Stand test - 11 reps. Pt walking around her home sometimes reaching out. STG Duration 08/26/22 (08/11/22: Partially met goal) [facility] Goal (LTG) Pt will be able to join [employer] for an exercise program. LTG Duration 10/24/22 One Impairment Decreased function per ABC & DHI score Impairment ABC score 54.375 (40 <60% impaired, score 41-60) Dizziness Questionnaire 196 ( 100% impaired, score 100 or more) Short Term Goal (STG) Pt will be able to Squat (as her L knee pain allows) to reaching for low items without falling. 09/17/22: Pt able to semi-squat holding onto things at home. STG Duration 08/26/22 (09/17/22: MET GOAL). [facility] Goal (LTG) Improve function per ABC score >80 (1<20% impaired, score 81 -99). 09/17/22: ABC score 56.25. LTG Duration 10/24/22 slightly improved . Assessment Summary Assessment Extra time with activity for interpretation during therapy. Pt ascends stairs well, but has LOB descending stairs w/o railing. + response to training on stairs. Pt went from not moving hand position on railing much when descending to sliding of hand with cuing. Her feet position is in ER, due to trying to increase her LAUREL and possibly from mild encephalopathy present. Physical Therapy Plan Frequency and Duration Frequency of Treatment 2x/Week Plan of Care Start Date 07/26/22 Plan of Care End Date 10/24/22 Next Visit Focus/Plan Next Note Type Treatment Note Next Visit Plan Next: Focus on balance and core stability. Review LE strengthening (ER) for HEP. Add resisted stair stepping for LE strengthening and PRE's as tolerated on L knee. Progress Balance/Coordination/ LE & core strengthening for stair ambulation safety & to improve safety with gait and improve speed. Try Shuttle Balance with tilt to R side to encourage pt lean to L in standing and with activity. Pt/Caregiver education for HEP as needed.
--- NOTE | 2022-10-01 09:12 | PT.OTN ---
Current Diagnoses Other specified disorders of brain (10/01/22) Pain in left knee (10/01/22) Muscle weakness (generalized) (10/01/22) Other abnormalities of gait and mobility (10/01/22) Repeated falls (10/01/22) Physical Therapy Treatment Note PT-OP-A Visit Information Start: 05/09/22 19:03 Freq: Status: Active Protocol: Document 10/01/22 08:17 LRN (Rec: 10/01/22 09:04 LRN [id number]) Out-Patient Physical Therapy Visit Information Visit Information Visit Type Treatment Note Visit Start Time 08:17 Visit Stop Time 08:57 Total Visit Minutes 40 Visit Number Evaluation Information Evaluation Date 05/14/22 Precautions Precautions s/p FITTER WELDER (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 PT-OP-B Current Condition Start: 05/09/22 19:03 Freq: Status: Active Protocol: Document 07/26/22 10:30 DCW (Rec: 07/26/22 11:10 DCW [id number]) Current Condition History of Current Condition Onset Date 03/04/22 Current Complaints Balance problem and weakness in LE's and low endurance History of Current Condition Surgery at for Ventriculoperitoneal (FITTER WELDER) shunt 03/04/22. Overnight hospitalization, then home. Has been walking around the house a couple times a day. Used to walk from home (near high school) to [employer] 4 yrs ago. Pt used to take care of house and yardwork, but not able to yet. She is walking at home around the house, touching/holding onto things for balance. Pt is walking outside by herself with a single point cane. Daughter states prior to surgery she had a magnet shuffling- Parkingson's type gait, but not since surgery. She used to fall 3x/week, but since her surgery has fallen 3 times, but balance is much improved and speed of walking has improved since surgery. Her neurologist at [facility] and at recommended physical therapy. PCP started referral. CARO was nurse practitioner at ER and now is a nurse in ER ([employer]). Works 3 -4x/weeks, therefore pt stays by self when DA works. DA is leaving [place] for reserve work 05/25-06/24; therefore the pt will be going to stay with her other daughter out of state. 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 Reports she does not do anything at the hair salon or the dentist's office that requires her to lay her head back far. Admits she has had CRM off and on from different ENTs, both when they were visiting [place] and locally. Prior Treatments and Tests None. Future Testing and Treatments Planned Dr. Kirk f/u visit @ . No future appts with PCP. Developmental History Developmental History Attended [facility] until end of February 2022 due to falls, then insurance changed. Was falling frequently prior to surgery and since surgery has fallen 3x. DA reports pt has pain in L back and L medial knee pain from previous falls (L knee pain from landing on the knee from slipping on leaves outside). Treatment Goals Patient/Caregiver Goals Pt goals per DA interpretation : - Better balance not LOB on stairs, and - Falling no more than (was 3x /week) once per month with use of assistive device as needed . - Squat (as her L knee pain allows) to reaching for low items without falling. - Join [employer] for exercise. - Walking around home without holding onto the jarrell. Prior Functional Status Baseline Function- ADL's Modified Independent Baseline Function- Mobility Modified Independent Baseline Function- Gait Walked with Hortencia Baseline Function- Other Fell 3-4x/week. Current Functional Impairments (Reported) Functional Limitations- ADL's Ambulates 15 stairs to get to bedroom using railing on both sides (except 20 ft no railing ). Has fallen down stairs ( holding her dog, who is now ). Walking around the house holding onto things Walkiing outside with SPC on concrete with a little incline ~ 1 blocks. Functional Limitations- Mobility/Gait Independent ADLs. Personal Factors Other Personal Factors That May Effect [place] is [place]. Therapy/Recovery Daughter (CARO) is her developer trading systems. Pt lives with CARO who works 8- 12 hour days on hardening machine operator and is alone when DA. Pt walks alone with SPC, no life alert. Pt has fallen down stairs backwards when using stairs with carrying objects in hands . PT-OP-C Subjective Start: 05/09/22 19:03 Freq: Status: Active Protocol: Document 10/01/22 08:17 LRN (Rec: 10/01/22 09:04 LRN [id number]) OP-PT Subjective Patient Comments Patient Comments Has been walking this week and doing the ex's given to her. DA states pt does not reach into lower cabinets because of fear of loss of balance. PT-OP-D Balance Start: 05/09/22 19:03 Freq: Status: Active Protocol: Document 09/17/22 13:04 LRN (Rec: 09/17/22 13:52 LRN [id number]) Balance Tests Single Limb Standing Single Limb- Right 1 Single Limb- Left 2 Tandem Tandem Standing 1 Joshi Balance Assessment Evaluation Sitting to Standing Ability Independent w/out Hands Unsupported Stance Safely- 2 minutes Sitting Unsupported, Feet on Floor Safely- 2 minutes Standing to Sitting Ability Safely, Minimal Hand Use Transfer Ability Safely, Minimal Hand Use Unsupported Stance- Eyes Closed Safely, 10 seconds Unsupported Stance- Eyes Open Independent, 1 minute Reaching Forward Standing Confidently, 10 inches Pick- Up Object From Floor Independent/Safe Look Behind Shoulder - Standing Shifts Weight Well Turning 360 Degrees Turns slowly, but safely Unsupported Stance, Alternating Feet on (I)- 8 Steps in 20 secs Stair Unsupported Tandem Stance Balance Lost- Step/Stand Unilateral Leg Stance Lifts Leg/Unable to Hold Total Score Joshi Total Score (out of 56 points) 47 Joshi Impairment Rating 1 to 19% Impaired (Score 45-55 ) PT-OP-E Functional Tests Start: 05/09/22 19:03 Freq: Status: Active Protocol: Document 08/01/22 08:17 LRN (Rec: 08/01/22 09:03 LRN [id number]) Functional Tests 30 Second Sit to Stand Test Score 11 Comments Norm for 80-84 yo women is 9- 14x. Five Times Sit to Stand Test Score 19, 12 secs Comments Norm for 80-89 yo's is 14.8 secs. Fall risk if > or = 12 secs Timed Up and Go (TUG) Score 12 Comments No use of hands, from webbed chairl, slip ons. TUG Impairment Rating 20 to <40% Impaired (Score 12- 13) Other Gait Speed Name of Test Gait speed Score 20'/6 = 3.33 ft/sec Comment 2.62-3.94 ft/sec for community gait speed PT-OP-G Mobility & Gait Start: 05/09/22 19:03 Freq: Status: Active Protocol: Document 09/17/22 13:04 LRN (Rec: 09/17/22 13:52 LRN [id number]) OP Gait Assessment Gait Gait Assistance Required: Independent Able to Maintain Weight Bearing Status Yes During Gait Assistive Devices Assistive Device Straight Cane PT-OP-H Neuro Start: 05/09/22 19:03 Freq: Status: Active Protocol: Document 05/14/22 09:50 LRN (Rec: 05/14/22 12:37 LRN [id number]) Sensation Evaluation Gross Sensation Gross Sensation WNL PT-OP-M Strength Start: 05/09/22 19:03 Freq: Status: Active Protocol: Document 05/24/22 09:04 LRN (Rec: 05/24/22 09:49 LRN [id number]) Hip Strength Hip Manual Muscle Testing Right Flexion (L2) 3 Fair Abduction 3 Fair Adduction 5 Normal External Rotation 5 Normal Internal Rotation 3 Fair Left Flexion (L2) 3 Fair Abduction 3 Fair Adduction 3 Fair External Rotation 3 Fair Internal Rotation 3 Fair PT-OP-O Vestibular Start: 07/26/22 10:56 Freq: Status: Active Protocol: Document 07/29/22 10:30 DCW (Rec: 07/29/22 10:54 DCW [id number]) Vestibular Assessment Positional Testing Mariela-Hallpike Positive Right,Negative Left,< 60 Seconds Comments Vestibular Comments Pt again had difficulty keeping eyes open during dizziness, appeared to be upbeating with right Mariela- Hallpike PT-OP-Q Treatments Start: 05/09/22 19:03 Freq: Status: Active Protocol: Document 10/01/22 08:17 LRN (Rec: 10/01/22 09:04 LRN [id number]) Therapeutic Exercises Sitting Exercises Hip ER stretch Sitting Exercise Name knee over ankle w/ deep breaths, ankle ROM Side left Reps/Minutes Hold through 6 reps of: breaths, ankle mvmt, trunk rot /SB/flex/ext L hip ER strengthening Sitting Exercise Name Moving ankle towards other knee Side bilateral Equipment Used L1 TB Reps/Minutes 11' Comments Extra time taken to teach ex w /daughter as developer trading systems. Hip IR Sitting Exercise Name Hip IR stregnthening Side left Equipment Used L1 TB Reps/Minutes 15x, 4' Sit<>Stands Sitting Exercise Name Sit<>Stands from webbed chair w/o hands Reps/Minutes 15x Comments not too tired Standing Exercises Soleus stretch Standing Exercise Name Soleus stretch Side bilateral Equipment Used Irineo Reps/Minutes 5' Comments Extra time taken to teach ex w /daughter as developer trading systems. Gastroc Stretch Standing Exercise Name Gastroc stretch Side bilateral Equipment Used Irineo Reps/Minutes 5' Comments Extra time taken to teach ex w /daughter as developer trading systems. L hip active ER stretch Standing Exercise Name Hip active hip rot stretch: Flex>ER Reps/Minutes 3' Comments Assist by daughter acting as developer trading systems. Self-Care/Home Management Treatment Education Patient Education Home Exercise Program Other Education Educated DA in standing gastroc/soleus stretch using wall vs runner's stretch. Educated DA in use of roll to low back for support in sitting. Activities Self-Care/Home Management Activities Issued & reviewed HEP: standing gastroc and soleus runner's stretch. PT-OP-T Assessment and Plan Start: 05/09/22 19:03 Freq: Status: Active Protocol: Document 10/01/22 08:17 LRN (Rec: 10/01/22 09:04 LRN [id number]) Physical Therapy Assessment Goals Five Impairment Positive Mariela-Hallpike test bilaterally Short Term Goal (STG) Pt to test negative with all positional testing bilaterally STG Duration 08/26/22 Three Impairment Balance Impairment Initial Joshi Balance Score - 44 (20-39% impaired, score 34- 44) Initial: Pt falling 3x/week or 3x/month. Short Term Goal (STG) Pt will improve balance as noted with no LOB on stairs. STG Duration 08/26/22 Nursing Home Goal (LTG) Improve balance per Joshi Balance score >44 (1-19% impaired, score 45-55), with pt falling no more than (was 3x/week) or no more than 1x/ month with use of assistive device. 08/01/22: JOSHI score 47 (1-19% impaired, score 45-55). LTG Duration 10/24/22 (08/01/22: JOSHI score goal met) Two Impairment Decreased LE Strength/ decreased endurance Impairment Initial 30 sec chair stand is 7x (norm for 80-84 yo women is 9-14 times) Short Term Goal (STG) Improve 30 sec Chair Stand test to 9x, with pt able to walking around her home without holding onto the jarrell . 08/01/22: 30 Sec Chair Stand test - 11 reps. Pt walking around her home sometimes reaching out. STG Duration 08/26/22 (08/11/22: Partially met goal) Manager Installation Goal (LTG) Pt will be able to join [employer] for an exercise program. LTG Duration 10/24/22 One Impairment Decreased function per ABC & DHI score Impairment ABC score 54.375 (40 <60% impaired, score 41-60) Dizziness Questionnaire 196 ( 100% impaired, score 100 or more) Short Term Goal (STG) Pt will be able to Squat (as her L knee pain allows) to reaching for low items without falling. 09/17/22: Pt able to semi-squat holding onto things at home. STG Duration 08/26/22 (09/17/22: MET GOAL). Nursing Home Goal (LTG) Improve function per ABC score >80 (1<20% impaired, score 81 -99). 09/17/22: ABC score 56.25. LTG Duration 10/24/22 slightly improved . Assessment Summary Assessment Pt fatigued and moves slowly today. Stretch in sitting to L hip ER showed improved ease of mobility with active hip ER after stretching. Pt limited in mobility due to c/o back pain. Physical Therapy Plan Frequency and Duration Frequency of Treatment 2x/Week Plan of Care Start Date 07/26/22 Plan of Care End Date 10/24/22 Next Visit Focus/Plan Next Note Type Treatment Note Next Visit Plan Focus on balance and core stability. Review gastroc/ soleus stretch position pt doing at home (runner's vs toes on wall/step) Add resisted stair stepping for LE strengthening and PRE's as tolerated on L knee. Progress Balance/Coordination/ LE & core strengthening for stair ambulation safety & to improve safety with gait and improve speed. Try Shuttle Balance with tilt to R side to encourage pt lean to L in standing and with activity and for squatting. Pt/Caregiver education for HEP as needed.
--- NOTE | 2022-10-07 09:00 | PT.OTN ---
Current Diagnoses Other specified disorders of brain (10/07/22) Pain in left knee (10/07/22) Muscle weakness (generalized) (10/07/22) Other abnormalities of gait and mobility (10/07/22) Repeated falls (10/07/22) Physical Therapy Treatment Note PT-OP-A Visit Information Start: 05/09/22 19:03 Freq: Status: Active Protocol: Document 10/07/22 08:24 SP (Rec: 10/07/22 09:06 SP [id number]) Out-Patient Physical Therapy Visit Information Visit Information Visit Type Treatment Note Visit Note Pt's daughter attends with pt, assists with interpreting and good carryover cues for proper form. Daughter states helps her do her HEP, thinks pt does them on her own as well but unsure if is correct form. 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 PT-OP-B Current Condition Start: 05/09/22 19:03 Freq: Status: Active Protocol: Document 07/26/22 10:30 DCW (Rec: 07/26/22 11:10 DCW [id number]) Current Condition History of Current Condition Onset Date 03/04/22 Current Complaints Balance problem and weakness in LE's and low endurance History of Current Condition Surgery at for Ventriculoperitoneal (MOWER OPERATOR) shunt 03/04/22. Overnight hospitalization, then home. Has been walking around the house a couple times a day. Used to walk from home (near high school) to [employer] 4 yrs ago. Pt used to take care of house and yardwork, but not able to yet. She is walking at home around the house, touching/holding onto things for balance. Pt is walking outside by herself with a single point cane. Daughter states prior to surgery she had a magnet shuffling- Parkingson's type gait, but not since surgery. She used to fall 3x/week, but since her surgery has fallen 3 times, but balance is much improved and speed of walking has improved since surgery. Her neurologist at [facility] and at recommended physical therapy. PCP started referral. CARO was nurse practitioner at ER and now is a nurse in ER ([employer]). Works 3 -4x/weeks, therefore pt stays by self when CARO works. CARO is leaving [place] for reserve work 05/25-06/24; therefore the pt will be going to stay with her other daughter out of state. 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 Reports she does not do anything at the [place] or the dentist's office that requires her to lay her head back far. Admits she has had CRM off and on from different ENTs, both when they were visiting [place] and locally. Prior Treatments and Tests None. Future Testing and Treatments Planned Dr. Kirk f/u visit @ . No future appts with PCP. Developmental History Developmental History Attended [facility] until end of February 2022 due to falls, then insurance changed. Was falling frequently prior to surgery and since surgery has fallen 3x. DA reports pt has pain in L back and L medial knee pain from previous falls (L knee pain from landing on the knee from slipping on leaves outside). Treatment Goals Patient/Caregiver Goals Pt goals per CARO interpretation : - Better balance not LOB on stairs, and - Falling no more than (was 3x /week) once per month with use of assistive device as needed . - Squat (as her L knee pain allows) to reaching for low items without falling. - Join [employer] for exercise. - Walking around home without holding onto the jarrell. Prior Functional Status Baseline Function- ADL's Modified Independent Baseline Function- Mobility Modified Independent Baseline Function- Gait Walked with Hortencia Baseline Function- Other Fell 3-4x/week. Current Functional Impairments (Reported) Functional Limitations- ADL's Ambulates 15 stairs to get to bedroom using railing on both sides (except 20 ft no railing ). Has fallen down stairs ( holding her dog, who is now ). Walking around the house holding onto things Walkiing outside with SPC on concrete with a little incline ~ 1 blocks. Functional Limitations- Mobility/Gait Independent ADLs. Personal Factors Other Personal Factors That May Effect Pt [place] language is Icelandic. Therapy/Recovery Daughter (CARO) is her formal service waiter. Pt lives with CARO who works 8- 12 hour days on tank setter helper and is alone when DA. Pt walks alone with SPC, no life alert. Pt has fallen down stairs backwards when using stairs with carrying objects in hands . PT-OP-C Subjective Start: 05/09/22 19:03 Freq: Status: Active Protocol: Document 10/07/22 08:24 SP (Rec: 10/07/22 09:06 SP [id number]) OP-PT Subjective Patient Comments Patient Comments Pt's daughter reports she has been trying walk in doors without using jarrell just use cane. She walking [place] with nighbor and did well. PT-OP-D Balance Start: 05/09/22 19:03 Freq: Status: Active Protocol: Document 09/17/22 13:04 LRN (Rec: 09/17/22 13:52 LRN [id number]) Balance Tests Single Limb Standing Single Limb- Right 1 Single Limb- Left 2 Tandem Tandem Standing 1 Joshi Balance Assessment Evaluation Sitting to Standing Ability Independent w/out Hands Unsupported Stance Safely- 2 minutes Sitting Unsupported, Feet on Floor Safely- 2 minutes Standing to Sitting Ability Safely, Minimal Hand Use Transfer Ability Safely, Minimal Hand Use Unsupported Stance- Eyes Closed Safely, 10 seconds Unsupported Stance- Eyes Open Independent, 1 minute Reaching Forward Standing Confidently, 10 inches Pick- Up Object From Floor Independent/Safe Look Behind Shoulder - Standing Shifts Weight Well Turning 360 Degrees Turns slowly, but safely Unsupported Stance, Alternating Feet on (I)- 8 Steps in 20 secs Stair Unsupported Tandem Stance Balance Lost- Step/Stand Unilateral Leg Stance Lifts Leg/Unable to Hold Total Score Joshi Total Score (out of 56 points) 47 Joshi Impairment Rating 1 to 19% Impaired (Score 45-55 ) PT-OP-E Functional Tests Start: 05/09/22 19:03 Freq: Status: Active Protocol: Document 08/01/22 08:17 LRN (Rec: 08/01/22 09:03 LRN [id number]) Functional Tests 30 Second Sit to Stand Test Score 11 Comments Norm for 80-84 yo women is 9- 14x. Five Times Sit to Stand Test Score 19, 12 secs Comments Norm for 80-89 yo's is 14.8 secs. Fall risk if > or = 12 secs Timed Up and Go (TUG) Score 12 Comments No use of hands, from webbed chairl, slip ons. TUG Impairment Rating 20 to <40% Impaired (Score 12- 13) Other Gait Speed Name of Test Gait speed Score 20'/6 = 3.33 ft/sec Comment 2.62-3.94 ft/sec for community gait speed PT-OP-G Mobility & Gait Start: 05/09/22 19:03 Freq: Status: Active Protocol: Document 09/17/22 13:04 LRN (Rec: 09/17/22 13:52 LRN [id number]) OP Gait Assessment Gait Gait Assistance Required: Independent Able to Maintain Weight Bearing Status Yes During Gait Assistive Devices Assistive Device Straight Cane PT-OP-H Neuro Start: 05/09/22 19:03 Freq: Status: Active Protocol: Document 05/14/22 09:50 LRN (Rec: 05/14/22 12:37 LRN [id number]) Sensation Evaluation Gross Sensation Gross Sensation WNL PT-OP-M Strength Start: 05/09/22 19:03 Freq: Status: Active Protocol: Document 05/24/22 09:04 LRN (Rec: 05/24/22 09:49 LRN [id number]) Hip Strength Hip Manual Muscle Testing Right Flexion (L2) 3 Fair Abduction 3 Fair Adduction 5 Normal External Rotation 5 Normal Internal Rotation 3 Fair Left Flexion (L2) 3 Fair Abduction 3 Fair Adduction 3 Fair External Rotation 3 Fair Internal Rotation 3 Fair PT-OP-O Vestibular Start: 07/26/22 10:56 Freq: Status: Active Protocol: Document 07/29/22 10:30 DCW (Rec: 07/29/22 10:54 DCW [id number]) Vestibular Assessment Positional Testing Mariela-Hallpike Positive Right,Negative Left,< 60 Seconds Comments Vestibular Comments Pt again had difficulty keeping eyes open during dizziness, appeared to be upbeating with right [place]- Hallpike PT-OP-Q Treatments Start: 05/09/22 19:03 Freq: Status: Active Protocol: Document 10/07/22 08:24 SP (Rec: 10/07/22 09:06 SP [id number]) Therapeutic Exercises Sitting Exercises Hip ER stretch Sitting Exercise Name knee over ankle w/ deep breaths, ankle ROM Side left Reps/Minutes Hold through 6 reps of: breaths, ankle mvmt, trunk rot /SB/flex/ext L hip ER strengthening Sitting Exercise Name Moving ankle towards other ankle Side bilateral Resistance TB #1 Equipment Used ankle tied to chair leg Reps/Minutes 30' x2 Comments good form with daughter cues and demonstration follow ankle no IV Hip IR Sitting Exercise Name Hip IR stregnthening Side left Resistance L1 TB around both ankles Reps/Minutes 15x Comments good from with daughter cues and demonstration follow Sit<>Stands Sitting Exercise Name Sit<>Stands from webbed chair w/o hands Equipment Used 17 height table Reps/Minutes 15x Comments good response Standing Exercises Balance-toe raises Standing Exercise Name Toe raises for balance - holding bar Equipment Used Gait Belt Reps/Minutes 15x Comments SBA guarding needed. Balance-heel raises Standing Exercise Name Heel raises for balance - hands hovering over bar Equipment Used Gait Belt Reps/Minutes 15x Comments SBA guarding needed. Neuro Re-Education Treatment Balance Activities tandem fwd, normal back walking Equipment PRN //bars Reps/Duration 10 ft x3 laps Comments cued taller posturing Hurdles Details Sal stepping: Hands on rails, finger tips. Surface fwd, lateral Equipment // bars Comments times lean to R during RLE advancement, little improvement with cues taller posturing no HR fwd, lateral 1 UE contact slide, cues look hurdles clearance, trunk alingnment facing window. Stairs Details 6 steps: With 1 rail, fingertips on rail. Equipment Railing Comments training needed for mvvt of hands on railing receiprocal stepping asc/desc PT-OP-T Assessment and Plan Start: 05/09/22 19:03 Freq: Status: Active Protocol: Document 10/07/22 08:24 SP (Rec: 10/07/22 09:06 SP [id number]) Physical Therapy Assessment Goals Five Impairment Positive [place]-Hallpike test bilaterally Short Term Goal (STG) Pt to test negative with all positional testing bilaterally STG Duration 08/26/22 Three Impairment Balance Impairment Initial Joshi Balance Score - 44 (20-39% impaired, score 34- 44) Initial: Pt falling 3x/week or 3x/month. Short Term Goal (STG) Pt will improve balance as noted with no LOB on stairs. STG Duration 08/26/22 Evaluator Transfer Students Goal (LTG) Improve balance per Joshi Balance score >44 (1-19% impaired, score 45-55), with pt falling no more than (was 3x/week) or no more than 1x/ month with use of assistive device. 08/01/22: JOSHI score 47 (1-19% impaired, score 45-55). LTG Duration 10/24/22 (08/01/22: JOSHI score goal met) Two Impairment Decreased LE Strength/ decreased endurance Impairment Initial 30 sec chair stand is 7x (norm for 80-84 yo women is 9-14 times) Short Term Goal (STG) Improve 30 sec Chair Stand test to 9x, with pt able to walking around her home without holding onto the jarrell . 08/01/22: 30 Sec Chair Stand test - 11 reps. Pt walking around her home sometimes reaching out. STG Duration 08/26/22 (08/11/22: Partially met goal) Evaluator Transfer Students Goal (LTG) Pt will be able to join [employer] for an exercise program. LTG Duration 10/24/22 One Impairment Decreased function per ABC & DHI score Impairment ABC score 54.375 (40 <60% impaired, score 41-60) Dizziness Questionnaire 196 ( 100% impaired, score 100 or more) Short Term Goal (STG) Pt will be able to Squat (as her L knee pain allows) to reaching for low items without falling. 09/17/22: Pt able to semi-squat holding onto things at home. STG Duration 08/26/22 (09/17/22: MET GOAL). Longterm Goal (LTG) Improve function per ABC score >80 (1<20% impaired, score 81 -99). 09/17/22: ABC score 56.25. LTG Duration 10/24/22 slightly improved . Assessment Summary Assessment Pt good effort and muscle tiring during seated ther ex, reports painfree. Challenged with improvement in semi tandem and back stepping gait light contact R HR as needed for balance recovery. Pt required light contact rail and 5%A or sal stepping. Physical Therapy Plan Frequency and Duration Frequency of Treatment 2x/Week Plan of Care Start Date 07/26/22 Plan of Care End Date 10/24/22 Therapeutic Interventions Therapeutic Interventions Balance Training,Canalithic Repositioning,Gait Training, Home Exercise Program, Neuromuscular Re-education, Patient/Caregiver Education, Self-Care/Home Management, Therapeutic Activities, Therapeutic Exercises, Vestibular Rehabilitation Modalities Cold Pack/Ice Massage Next Visit Focus/Plan Next Note Type Treatment Note Next Visit Plan Focus on balance and core stability. Review gastroc/ soleus stretch position pt doing at home (runner's vs toes on wall/step) Add resisted stair stepping for LE strengthening and PRE's as tolerated on L knee. Progress Balance/Coordination/ LE & core strengthening for stair ambulation safety & to improve safety with gait and improve speed. Try Shuttle Balance with tilt to R side to encourage pt lean to L in standing and with activity and for squatting. Pt/Caregiver education for HEP as needed.
--- NOTE | 2022-10-15 13:14 | PT.OTN ---
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 PT-OP-B Current Condition Start: 05/09/22 19:03 Freq: Status: Active Protocol: Document 07/26/22 10:30 DCW (Rec: 07/26/22 11:10 DCW [id number]) Current Condition History of Current Condition Onset Date 03/04/22 Current Complaints Balance problem and weakness in LE's and low endurance History of Current Condition Surgery at for Ventriculoperitoneal (RELATIONSHIP ASSOCIATE) shunt 03/04/22. Overnight hospitalization, then home. Has been walking around the house a couple times a day. Used to walk from home (near high school) to [employer] 4 yrs ago. Pt used to take care of house and yardwork, but not able to yet. She is walking at home around the house, touching/holding onto things for balance. Pt is walking outside by herself with a single point cane. Daughter states prior to surgery she had a magnet shuffling- Parkingson's type gait, but not since surgery. She used to fall 3x/week, but since her surgery has fallen 3 times, but balance is much improved and speed of walking has improved since surgery. Her neurologist at [facility] and at recommended physical therapy. PCP started referral. CARO was nurse practitioner at ER and now is a nurse in ER (PACU). Works 3 -4x/weeks, therefore pt stays by self when DA works. CARO is leaving State for reserve work 05/25-06/24; therefore the pt will be going to stay with her other daughter out of state. 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 Reports she does not do anything at the hair salon or the dentist's office that requires her to lay her head back far. Admits she has had CRM off and on from different ENTs, both when they were visiting [place] and locally. Prior Treatments and Tests None. Future Testing and Treatments Planned Dr. Kirk f/u visit @ . No future appts with PCP. Developmental History Developmental History Attended [facility] until end of February 2022 due to falls, then insurance changed. Was falling frequently prior to surgery and since surgery has fallen 3x. DA reports pt has pain in L back and L medial knee pain from previous falls (L knee pain from landing on the knee from slipping on leaves outside). Treatment Goals Patient/Caregiver Goals Pt goals per DA interpretation : - Better balance not LOB on stairs, and - Falling no more than (was 3x /week) once per month with use of assistive device as needed . - Squat (as her L knee pain allows) to reaching for low items without falling. - Join [employer] for exercise. - Walking around home without holding onto the jarrell. Prior Functional Status Baseline Function- ADL's Modified Independent Baseline Function- Mobility Modified Independent Baseline Function- Gait Walked with Hortencia Baseline Function- Other Fell 3-4x/week. Current Functional Impairments (Reported) Functional Limitations- ADL's Ambulates 15 stairs to get to bedroom using railing on both sides (except 20 ft no railing ). Has fallen down stairs ( holding her dog, who is now ). Walking around the house holding onto things Walkiing outside with SPC on concrete with a little incline ~ 1 blocks. Functional Limitations- Mobility/Gait Independent ADLs. Personal Factors Other Personal Factors That May Effect Pt [place] language is Sami. Therapy/Recovery Daughter (CARO) is her j2ee android developer. Pt lives with CARO who works 8- 12 hour days on supervisor money room and is alone when DA. Pt walks alone with SPC, no life alert. Pt has fallen down stairs backwards when using stairs with carrying objects in hands . PT-OP-C Subjective Start: 05/09/22 19:03 Freq: Status: Active Protocol: Document 10/15/22 13:02 DCW (Rec: 10/15/22 13:14 DCW [id number]) OP-PT Subjective Patient Comments Patient Comments Per pt's daughter, pt has not been having any difficulty with vertigo since her last vestibular treatment. PT-OP-D Balance Start: 05/09/22 19:03 Freq: Status: Active Protocol: Document 09/17/22 13:04 LRN (Rec: 09/17/22 13:52 LRN [id number]) Balance Tests Single Limb Standing Single Limb- Right 1 Single Limb- Left 2 Tandem Tandem Standing 1 Joshi Balance Assessment Evaluation Sitting to Standing Ability Independent w/out Hands Unsupported Stance Safely- 2 minutes Sitting Unsupported, Feet on Floor Safely- 2 minutes Standing to Sitting Ability Safely, Minimal Hand Use Transfer Ability Safely, Minimal Hand Use Unsupported Stance- Eyes Closed Safely, 10 seconds Unsupported Stance- Eyes Open Independent, 1 minute Reaching Forward Standing Confidently, 10 inches Pick- Up Object From Floor Independent/Safe Look Behind Shoulder - Standing Shifts Weight Well Turning 360 Degrees Turns slowly, but safely Unsupported Stance, Alternating Feet on (I)- 8 Steps in 20 secs Stair Unsupported Tandem Stance Balance Lost- Step/Stand Unilateral Leg Stance Lifts Leg/Unable to Hold Total Score Joshi Total Score (out of 56 points) 47 Joshi Impairment Rating 1 to 19% Impaired (Score 45-55 ) PT-OP-E Functional Tests Start: 05/09/22 19:03 Freq: Status: Active Protocol: Document 08/01/22 08:17 LRN (Rec: 08/01/22 09:03 LRN [id number]) Functional Tests 30 Second Sit to Stand Test Score 11 Comments Norm for 80-84 yo women is 9- 14x. Five Times Sit to Stand Test Score 19, 12 secs Comments Norm for 80-89 yo's is 14.8 secs. Fall risk if > or = 12 secs Timed Up and Go (TUG) Score 12 Comments No use of hands, from webbed chairl, slip ons. TUG Impairment Rating 20 to <40% Impaired (Score 12- 13) Other Gait Speed Name of Test Gait speed Score 20'/6 = 3.33 ft/sec Comment 2.62-3.94 ft/sec for community gait speed PT-OP-G Mobility & Gait Start: 05/09/22 19:03 Freq: Status: Active Protocol: Document 09/17/22 13:04 LRN (Rec: 09/17/22 13:52 LRN [id number]) OP Gait Assessment Gait Gait Assistance Required: Independent Able to Maintain Weight Bearing Status Yes During Gait Assistive Devices Assistive Device Straight Cane PT-OP-H Neuro Start: 05/09/22 19:03 Freq: Status: Active Protocol: Document 05/14/22 09:50 LRN (Rec: 05/14/22 12:37 LRN [id number]) Sensation Evaluation Gross Sensation Gross Sensation WNL PT-OP-M Strength Start: 05/09/22 19:03 Freq: Status: Active Protocol: Document 05/24/22 09:04 LRN (Rec: 05/24/22 09:49 LRN [id number]) Hip Strength Hip Manual Muscle Testing Right Flexion (L2) 3 Fair Abduction 3 Fair Adduction 5 Normal External Rotation 5 Normal Internal Rotation 3 Fair Left Flexion (L2) 3 Fair Abduction 3 Fair Adduction 3 Fair External Rotation 3 Fair Internal Rotation 3 Fair PT-OP-O Vestibular Start: 07/26/22 10:56 Freq: Status: Active Protocol: Document 07/29/22 10:30 DCW (Rec: 07/29/22 10:54 DCW [id number]) Vestibular Assessment Positional Testing Mariela-Hallpike Positive Right,Negative Left,< 60 Seconds Comments Vestibular Comments Pt again had difficulty keeping eyes open during dizziness, appeared to be upbeating with right Mariela- Hallpike PT-OP-Q Treatments Start: 05/09/22 19:03 Freq: Status: Active Protocol: Document 10/15/22 13:02 DCW (Rec: 10/15/22 13:14 DCW [id number]) Manual Therapy Treatment Other Other Manual Treatments Positional testing PT-OP-T Assessment and Plan Start: 05/09/22 19:03 Freq: Status: Active Protocol: Document 10/15/22 13:02 DCW (Rec: 10/15/22 13:14 DCW [id number]) Physical Therapy Assessment Goals Five Impairment Positive [place]-Hallpike test bilaterally Short Term Goal (STG) Pt to test negative with all positional testing bilaterally STG Duration Met Three Impairment Balance Impairment Initial Joshi Balance Score - 44 (20-39% impaired, score 34- 44) Initial: Pt falling 3x/week or 3x/month. Short Term Goal (STG) Pt will improve balance as noted with no LOB on stairs. STG Duration 08/26/22 Skilled Nursing Goal (LTG) Improve balance per Joshi Balance score >44 (1-19% impaired, score 45-55), with pt falling no more than (was 3x/week) or no more than 1x/ month with use of assistive device. 08/01/22: JOSHI score 47 (1-19% impaired, score 45-55). LTG Duration 10/24/22 (08/01/22: JOSHI score goal met) Two Impairment Decreased LE Strength/ decreased endurance Impairment Initial 30 sec chair stand is 7x (norm for 80-84 yo women is 9-14 times) Short Term Goal (STG) Improve 30 sec Chair Stand test to 9x, with pt able to walking around her home without holding onto the jarrell . 08/01/22: 30 Sec Chair Stand test - 11 reps. Pt walking around her home sometimes reaching out. STG Duration 08/26/22 (08/11/22: Partially met goal) Shift Supervisor Film Processing Goal (LTG) Pt will be able to join [employer] for an exercise program. LTG Duration 10/24/22 One Impairment Decreased function per ABC & DHI score Impairment ABC score 54.375 (40 <60% impaired, score 41-60) Dizziness Questionnaire 196 ( 100% impaired, score 100 or more) Short Term Goal (STG) Pt will be able to Squat (as her L knee pain allows) to reaching for low items without falling. 09/17/22: Pt able to semi-squat holding onto things at home. STG Duration 08/26/22 (09/17/22: MET GOAL). Skilled Nursing Goal (LTG) Improve function per ABC score >80 (1<20% impaired, score 81 -99). 09/17/22: ABC score 56.25. LTG Duration 10/24/22 slightly improved . Assessment Summary Assessment Pt has met positional testing goals, doing very well as far has her BPPV diagnosis is concerned. No longer experiencing positional dizziness, continue with planned POC for balance, core stability, and gait training. Physical Therapy Plan Frequency and Duration Frequency of Treatment 2x/Week Plan of Care Start Date 07/26/22 Plan of Care End Date 10/24/22 Therapeutic Interventions Therapeutic Interventions Balance Training,Canalithic Repositioning,Gait Training, Home Exercise Program, Neuromuscular Re-education, Patient/Caregiver Education, Self-Care/Home Management, Therapeutic Activities, Therapeutic Exercises, Vestibular Rehabilitation Modalities Cold Pack/Ice Massage Next Visit Focus/Plan Next Note Type Treatment Note Next Visit Plan Focus on balance and core stability. Review gastroc/ soleus stretch position pt doing at home (runner's vs toes on wall/step) Add resisted stair stepping for LE strengthening and PRE's as tolerated on L knee. Progress Balance/Coordination/ LE & core strengthening for stair ambulation safety & to improve safety with gait and improve speed. Try Shuttle Balance with tilt to R side to encourage pt lean to L in standing and with activity and for squatting. Pt/Caregiver education for HEP as needed.
--- NOTE | 2022-10-15 13:14 | PT.OTN ---
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) Pain in left knee (10/15/22) Muscle weakness (generalized) (10/15/22) Other abnormalities of gait and mobility (10/15/22) Repeated falls (10/15/22) Physical Therapy Treatment Note PT-OP-A Visit Information Start: 05/09/22 19:03 Freq: Status: Active Protocol: Document 10/15/22 13:02 DCW (Rec: 10/15/22 13:14 DCW [id number]) Out-Patient Physical Therapy Visit Information Visit Information Visit Type Treatment Note Visit Note Vestibular testing to clear prior BPPV Visit Start Time 13:02 Visit Stop Time 13:11 Total Visit Minutes 9 Visit Number Number of SAP INTEGRATION ARCHITECT Visits 0 Evaluation Information Evaluation Date 05/14/22 Precautions Precautions s/p MANAGER FASHION (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 PT-OP-B Current Condition Start: 05/09/22 19:03 Freq: Status: Active Protocol: Document 07/26/22 10:30 DCW (Rec: 07/26/22 11:10 DCW [id number]) Current Condition History of Current Condition Onset Date 03/04/22 Current Complaints Balance problem and weakness in LE's and low endurance History of Current Condition Surgery at for Ventriculoperitoneal (MANAGER FASHION) shunt 03/04/22. Overnight hospitalization, then home. Has been walking around the house a couple times a day. Used to walk from home (near high school) to [employer] 4 yrs ago. Pt used to take care of house and yardwork, but not able to yet. She is walking at home around the house, touching/holding onto things for balance. Pt is walking outside by herself with a single point cane. Daughter states prior to surgery she had a magnet shuffling- Parkingson's type gait, but not since surgery. She used to fall 3x/week, but since her surgery has fallen 3 times, but balance is much improved and speed of walking has improved since surgery. Her neurologist at [facility] and at recommended physical therapy. PCP started referral. CARO was nurse practitioner at ER and now is a nurse in ER (PACU). Works 3 -4x/weeks, therefore pt stays by self when DA works. CARO is leaving State for reserve work 05/25-06/24; therefore the pt will be going to stay with her other daughter out of state. 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 Reports she does not do anything at the hair salon or the dentist's office that requires her to lay her head back far. Admits she has had CRM off and on from different ENTs, both when they were visiting [place] and locally. Prior Treatments and Tests None. Future Testing and Treatments Planned Dr. Kirk f/u visit @ . No future appts with PCP. Developmental History Developmental History Attended [facility] until end of February 2022 due to falls, then insurance changed. Was falling frequently prior to surgery and since surgery has fallen 3x. DA reports pt has pain in L back and L medial knee pain from previous falls (L knee pain from landing on the knee from slipping on leaves outside). Treatment Goals Patient/Caregiver Goals Pt goals per DA interpretation : - Better balance not LOB on stairs, and - Falling no more than (was 3x /week) once per month with use of assistive device as needed . - Squat (as her L knee pain allows) to reaching for low items without falling. - Join [employer] for exercise. - Walking around home without holding onto the jarrell. Prior Functional Status Baseline Function- ADL's Modified Independent Baseline Function- Mobility Modified Independent Baseline Function- Gait Walked with Hortencia Baseline Function- Other Fell 3-4x/week. Current Functional Impairments (Reported) Functional Limitations- ADL's Ambulates 15 stairs to get to bedroom using railing on both sides (except 20 ft no railing ). Has fallen down stairs ( holding her dog, who is now ). Walking around the house holding onto things Walkiing outside with SPC on concrete with a little incline ~ 1 blocks. Functional Limitations- Mobility/Gait Independent ADLs. Personal Factors Other Personal Factors That May Effect Pt [place] language is [place]. Therapy/Recovery Daughter (CARO) is her tape controlled machine stitcher. Pt lives with CARO who works 8- 12 hour days on emergency operator and is alone when DA. Pt walks alone with SPC, no life alert. Pt has fallen down stairs backwards when using stairs with carrying objects in hands . PT-OP-C Subjective Start: 05/09/22 19:03 Freq: Status: Active Protocol: Document 10/15/22 13:02 DCW (Rec: 10/15/22 13:14 DCW [id number]) OP-PT Subjective Patient Comments Patient Comments Per pt's daughter, pt has not been having any difficulty with vertigo since her last vestibular treatment. PT-OP-D Balance Start: 05/09/22 19:03 Freq: Status: Active Protocol: Document 09/17/22 13:04 LRN (Rec: 09/17/22 13:52 LRN [id number]) Balance Tests Single Limb Standing Single Limb- Right 1 Single Limb- Left 2 Tandem Tandem Standing 1 Joshi Balance Assessment Evaluation Sitting to Standing Ability Independent w/out Hands Unsupported Stance Safely- 2 minutes Sitting Unsupported, Feet on Floor Safely- 2 minutes Standing to Sitting Ability Safely, Minimal Hand Use Transfer Ability Safely, Minimal Hand Use Unsupported Stance- Eyes Closed Safely, 10 seconds Unsupported Stance- Eyes Open Independent, 1 minute Reaching Forward Standing Confidently, 10 inches Pick- Up Object From Floor Independent/Safe Look Behind Shoulder - Standing Shifts Weight Well Turning 360 Degrees Turns slowly, but safely Unsupported Stance, Alternating Feet on (I)- 8 Steps in 20 secs Stair Unsupported Tandem Stance Balance Lost- Step/Stand Unilateral Leg Stance Lifts Leg/Unable to Hold Total Score Joshi Total Score (out of 56 points) 47 Joshi Impairment Rating 1 to 19% Impaired (Score 45-55 ) PT-OP-E Functional Tests Start: 05/09/22 19:03 Freq: Status: Active Protocol: Document 08/01/22 08:17 LRN (Rec: 08/01/22 09:03 LRN [id number]) Functional Tests 30 Second Sit to Stand Test Score 11 Comments Norm for 80-84 yo women is 9- 14x. Five Times Sit to Stand Test Score 19, 12 secs Comments Norm for 80-89 yo's is 14.8 secs. Fall risk if > or = 12 secs Timed Up and Go (TUG) Score 12 Comments No use of hands, from webbed chairl, slip ons. TUG Impairment Rating 20 to <40% Impaired (Score 12- 13) Other Gait Speed Name of Test Gait speed Score 20'/6 = 3.33 ft/sec Comment 2.62-3.94 ft/sec for community gait speed PT-OP-G Mobility & Gait Start: 05/09/22 19:03 Freq: Status: Active Protocol: Document 09/17/22 13:04 LRN (Rec: 09/17/22 13:52 LRN [id number]) OP Gait Assessment Gait Gait Assistance Required: Independent Able to Maintain Weight Bearing Status Yes During Gait Assistive Devices Assistive Device Straight Cane PT-OP-H Neuro Start: 05/09/22 19:03 Freq: Status: Active Protocol: Document 05/14/22 09:50 LRN (Rec: 05/14/22 12:37 LRN [id number]) Sensation Evaluation Gross Sensation Gross Sensation WNL PT-OP-M Strength Start: 05/09/22 19:03 Freq: Status: Active Protocol: Document 05/24/22 09:04 LRN (Rec: 05/24/22 09:49 LRN [id number]) Hip Strength Hip Manual Muscle Testing Right Flexion (L2) 3 Fair Abduction 3 Fair Adduction 5 Normal External Rotation 5 Normal Internal Rotation 3 Fair Left Flexion (L2) 3 Fair Abduction 3 Fair Adduction 3 Fair External Rotation 3 Fair Internal Rotation 3 Fair PT-OP-O Vestibular Start: 07/26/22 10:56 Freq: Status: Active Protocol: Document 10/15/22 13:02 DCW (Rec: 10/15/22 13:14 DCW [id number]) Vestibular Assessment Positional Testing Mariela-Hallpike Negative Left,Negative Right PT-OP-Q Treatments Start: 05/09/22 19:03 Freq: Status: Active Protocol: Document 10/15/22 13:02 DCW (Rec: 10/15/22 13:14 DCW [id number]) Manual Therapy Treatment Other Other Manual Treatments Positional testing PT-OP-T Assessment and Plan Start: 05/09/22 19:03 Freq: Status: Active Protocol: Document 10/15/22 13:02 DCW (Rec: 10/15/22 13:14 DCW [id number]) Physical Therapy Assessment Goals Five Impairment Positive [place]-Hallpike test bilaterally Short Term Goal (STG) Pt to test negative with all positional testing bilaterally STG Duration Met Three Impairment Balance Impairment Initial Joshi Balance Score - 44 (20-39% impaired, score 34- 44) Initial: Pt falling 3x/week or 3x/month. Short Term Goal (STG) Pt will improve balance as noted with no LOB on stairs. STG Duration 08/26/22 Medical Office Representative Goal (LTG) Improve balance per Joshi Balance score >44 (1-19% impaired, score 45-55), with pt falling no more than (was 3x/week) or no more than 1x/ month with use of assistive device. 08/01/22: JOSHI score 47 (1-19% impaired, score 45-55). LTG Duration 10/24/22 (08/01/22: JOSHI score goal met) Two Impairment Decreased LE Strength/ decreased endurance Impairment Initial 30 sec chair stand is 7x (norm for 80-84 yo women is 9-14 times) Short Term Goal (STG) Improve 30 sec Chair Stand test to 9x, with pt able to walking around her home without holding onto the jarrell . 08/01/22: 30 Sec Chair Stand test - 11 reps. Pt walking around her home sometimes reaching out. STG Duration 08/26/22 (08/11/22: Partially met goal) Medical Office Representative Goal (LTG) Pt will be able to join [employer] for an exercise program. LTG Duration 10/24/22 One Impairment Decreased function per ABC & DHI score Impairment ABC score 54.375 (40 <60% impaired, score 41-60) Dizziness Questionnaire 196 ( 100% impaired, score 100 or more) Short Term Goal (STG) Pt will be able to Squat (as her L knee pain allows) to reaching for low items without falling. 09/17/22: Pt able to semi-squat holding onto things at home. STG Duration 08/26/22 (09/17/22: MET GOAL). [facility] Goal (LTG) Improve function per ABC score >80 (1<20% impaired, score 81 -99). 09/17/22: ABC score 56.25. LTG Duration 10/24/22 slightly improved . Assessment Summary Assessment Pt has met positional testing goals, doing very well as far has her BPPV diagnosis is concerned. No longer experiencing positional dizziness, continue with planned POC for balance, core stability, and gait training. Physical Therapy Plan Frequency and Duration Frequency of Treatment 2x/Week Plan of Care Start Date 07/26/22 Plan of Care End Date 10/24/22 Therapeutic Interventions Therapeutic Interventions Balance Training,Canalithic Repositioning,Gait Training, Home Exercise Program, Neuromuscular Re-education, Patient/Caregiver Education, Self-Care/Home Management, Therapeutic Activities, Therapeutic Exercises, Vestibular Rehabilitation Modalities Cold Pack/Ice Massage Next Visit Focus/Plan Next Note Type Treatment Note Next Visit Plan Focus on balance and core stability. Review gastroc/ soleus stretch position pt doing at home (runner's vs toes on wall/step) Add resisted stair stepping for LE strengthening and PRE's as tolerated on L knee. Progress Balance/Coordination/ LE & core strengthening for stair ambulation safety & to improve safety with gait and improve speed. Try Shuttle Balance with tilt to R side to encourage pt lean to L in standing and with activity and for squatting. Pt/Caregiver education for HEP as needed.
--- NOTE | 2022-10-24 20:47 | PT.OTN ---
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) Pain in left knee (10/24/22) Muscle weakness (generalized) (10/24/22) Other abnormalities of gait and mobility (10/24/22) Repeated falls (10/24/22) Physical Therapy Treatment Note PT-OP-A Visit Information Start: 05/09/22 19:03 Freq: Status: Active Protocol: Document 10/24/22 09:07 LRN (Rec: 10/24/22 09:52 LRN [id number]) Out-Patient Physical Therapy Visit Information Visit Information Visit Type Treatment Note Visit Start Time 09:07 Visit Stop Time 09:45 Total Visit Minutes 38 Visit Number 25 Evaluation Information Evaluation Date 05/14/22 Precautions Precautions 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 PT-OP-B Current Condition Start: 05/09/22 19:03 Freq: Status: Active Protocol: Document 07/26/22 10:30 DCW (Rec: 07/26/22 11:10 DCW [id number]) Current Condition History of Current Condition Onset Date 03/04/22 Current Complaints Balance problem and weakness in LE's and low endurance History of Current Condition Surgery at for Ventriculoperitoneal (AMERICAN HISTORY TEACHER) shunt 03/04/22. Overnight hospitalization, then home. Has been walking around the house a couple times a day. Used to walk from home (near high school) to [employer] 4 yrs ago. Pt used to take care of house and yardwork, but not able to yet. She is walking at home around the house, touching/holding onto things for balance. Pt is walking outside by herself with a single point cane. Daughter states prior to surgery she had a magnet shuffling- Parkingson's type gait, but not since surgery. She used to fall 3x/week, but since her surgery has fallen 3 times, but balance is much improved and speed of walking has improved since surgery. Her neurologist at [facility] and at recommended physical therapy. PCP started referral. CARO was nurse practitioner at ER and now is a nurse in ER (PACU). Works 3 -4x/weeks, therefore pt stays by self when DA works. DA is leaving State for reserve work 05/25-06/24; therefore the pt will be going to stay with her other daughter out of state. 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 Reports she does not do anything at the hair salon or the dentist's office that requires her to lay her head back far. Admits she has had CRM off and on from different ENTs, both when they were visiting [place] and locally. Prior Treatments and Tests None. Future Testing and Treatments Planned Dr. Kirk f/u visit @ . No future appts with PCP. Developmental History Developmental History Attended [facility] until end of February 2022 due to falls, then insurance changed. Was falling frequently prior to surgery and since surgery has fallen 3x. DA reports pt has pain in L back and L medial knee pain from previous falls (L knee pain from landing on the knee from slipping on leaves outside). Treatment Goals Patient/Caregiver Goals Pt goals per DA interpretation : - Better balance not LOB on stairs, and - Falling no more than (was 3x /week) once per month with use of assistive device as needed . - Squat (as her L knee pain allows) to reaching for low items without falling. - Join [employer] for exercise. - Walking around home without holding onto the jarrell. Prior Functional Status Baseline Function- ADL's Modified Independent Baseline Function- Mobility Modified Independent Baseline Function- Gait Walked with Hortencia Baseline Function- Other Fell 3-4x/week. Current Functional Impairments (Reported) Functional Limitations- ADL's Ambulates 15 stairs to get to bedroom using railing on both sides (except 20 ft no railing ). Has fallen down stairs ( holding her dog, who is now ). Walking around the house holding onto things Walkiing outside with SPC on concrete with a little incline ~ 1 blocks. Functional Limitations- Mobility/Gait Independent ADLs. Personal Factors Other Personal Factors That May Effect Pt [place] language is Malay. Therapy/Recovery Daughter (CARO) is her manager market. Pt lives with CARO who works 8- 12 hour days on internet developer and is alone when DA. Pt walks alone with SPC, no life alert. Pt has fallen down stairs backwards when using stairs with carrying objects in hands . PT-OP-C Subjective Start: 05/09/22 19:03 Freq: Status: Active Protocol: Document 10/24/22 09:07 LRN (Rec: 10/24/22 09:52 LRN [id number]) OP-PT Subjective Patient Comments Patient Comments DA doesn't note much change in her dizziness on turning sine last treatment. DA states pt did better on escalator when going to trip to [place] last week. PT-OP-D Balance Start: 05/09/22 19:03 Freq: Status: Active Protocol: Document 09/17/22 13:04 LRN (Rec: 09/17/22 13:52 LRN [id number]) Balance Tests Single Limb Standing Single Limb- Right 1 Single Limb- Left 2 Tandem Tandem Standing 1 Joshi Balance Assessment Evaluation Sitting to Standing Ability Independent w/out Hands Unsupported Stance Safely- 2 minutes Sitting Unsupported, Feet on Floor Safely- 2 minutes Standing to Sitting Ability Safely, Minimal Hand Use Transfer Ability Safely, Minimal Hand Use Unsupported Stance- Eyes Closed Safely, 10 seconds Unsupported Stance- Eyes Open Independent, 1 minute Reaching Forward Standing Confidently, 10 inches Pick- Up Object From Floor Independent/Safe Look Behind Shoulder - Standing Shifts Weight Well Turning 360 Degrees Turns slowly, but safely Unsupported Stance, Alternating Feet on (I)- 8 Steps in 20 secs Stair Unsupported Tandem Stance Balance Lost- Step/Stand Unilateral Leg Stance Lifts Leg/Unable to Hold Total Score Ojshi Total Score (out of 56 points) 47 Joshi Impairment Rating 1 to 19% Impaired (Score 45-55 ) PT-OP-E Functional Tests Start: 05/09/22 19:03 Freq: Status: Active Protocol: Document 08/01/22 08:17 LRN (Rec: 08/01/22 09:03 LRN [id number]) Functional Tests 30 Second Sit to Stand Test Score 11 Comments Norm for 80-84 yo women is 9- 14x. Five Times Sit to Stand Test Score 19, 12 secs Comments Norm for 80-89 yo's is 14.8 secs. Fall risk if > or = 12 secs Timed Up and Go (TUG) Score 12 Comments No use of hands, from webbed chairl, slip ons. TUG Impairment Rating 20 to <40% Impaired (Score 12- 13) Other Gait Speed Name of Test Gait speed Score 20'/6 = 3.33 ft/sec Comment 2.62-3.94 ft/sec for community gait speed PT-OP-G Mobility & Gait Start: 05/09/22 19:03 Freq: Status: Active Protocol: Document 09/17/22 13:04 LRN (Rec: 09/17/22 13:52 LRN [id number]) OP Gait Assessment Gait Gait Assistance Required: Independent Able to Maintain Weight Bearing Status Yes During Gait Assistive Devices Assistive Device Straight Cane PT-OP-H Neuro Start: 05/09/22 19:03 Freq: Status: Active Protocol: Document 05/14/22 09:50 LRN (Rec: 05/14/22 12:37 LRN [id number]) Sensation Evaluation Gross Sensation Gross Sensation WNL PT-OP-M Strength Start: 05/09/22 19:03 Freq: Status: Active Protocol: Document 05/24/22 09:04 LRN (Rec: 05/24/22 09:49 LRN [id number]) Hip Strength Hip Manual Muscle Testing Right Flexion (L2) 3 Fair Abduction 3 Fair Adduction 5 Normal External Rotation 5 Normal Internal Rotation 3 Fair Left Flexion (L2) 3 Fair Abduction 3 Fair Adduction 3 Fair External Rotation 3 Fair Internal Rotation 3 Fair PT-OP-O Vestibular Start: 07/26/22 10:56 Freq: Status: Active Protocol: Document 10/15/22 13:02 DCW (Rec: 10/15/22 13:14 DCW [id number]) Vestibular Assessment Positional Testing Larimore-Hallpike Negative Left,Negative Right PT-OP-Q Treatments Start: 05/09/22 19:03 Freq: Status: Active Protocol: Document 10/24/22 09:07 LRN (Rec: 10/24/22 09:52 LRN [id number]) Therapeutic Exercises Standing Exercises Soleus stretch Standing Exercise Name Soleus stretch Side bilateral Equipment Used Stairs & GUDELIA Reps/Minutes 5' Comments Extra time taken to teach ex w /daughter as manager market. Gastroc Stretch Standing Exercise Name Gastroc stretch Side bilateral Equipment Used Stairs & GUDELIA Reps/Minutes 5' Comments Extra time taken to teach ex w /daughter as manager market. Steps Standing Exercise Name Step ups Equipment Used GB, Stairs Reps/Minutes 3' Neuro Re-Education Treatment Balance Activities Steps outs hovering Details SLS: Step outs hovering fwd, side, back Surface Level Equipment railing, GB Reps/Duration 6' Stairs Details 6 steps: hovering over railing Equipment Railing, GB Foot taps Details Alternating foot taps fwd, sideways, bkwds Equipment GB, railing Comments Extra time for DA to interpret explanation of activity in pt 's [place] language. PT-OP-T Assessment and Plan Start: 05/09/22 19:03 Freq: Status: Active Protocol: Document 10/24/22 09:07 LRN (Rec: 10/24/22 09:52 LRN [id number]) Physical Therapy Assessment Goals Five Impairment Positive Larimore-Hallpike test bilaterally Short Term Goal (STG) Pt to test negative with all positional testing bilaterally STG Duration Met Three Impairment Balance Impairment Initial Joshi Balance Score - 44 (20-39% impaired, score 34- 44) Initial: Pt falling 3x/week or 3x/month. Short Term Goal (STG) Pt will improve balance as noted with no LOB on stairs. STG Duration 08/26/22 Staff Respiratory Therapist Goal (LTG) Improve balance per Joshi Balance score >44 (1-19% impaired, score 45-55), with pt falling no more than (was 3x/week) or no more than 1x/ month with use of assistive device. 08/01/22: JOSHI score 47 (1-19% impaired, score 45-55). LTG Duration 10/24/22 (08/01/22: JOSHI score goal met) Two Impairment Decreased LE Strength/ decreased endurance Impairment Initial 30 sec chair stand is 7x (norm for 80-84 yo women is 9-14 times) Short Term Goal (STG) Improve 30 sec Chair Stand test to 9x, with pt able to walking around her home without holding onto the jarrell . 08/01/22: 30 Sec Chair Stand test - 11 reps. Pt walking around her home sometimes reaching out. STG Duration 08/26/22 (08/11/22: Partially met goal) Halfway Goal (LTG) Pt will be able to join [employer] for an exercise program. LTG Duration 10/24/22 One Impairment Decreased function per ABC & DHI score Impairment ABC score 54.375 (40 <60% impaired, score 41-60) Dizziness Questionnaire 196 ( 100% impaired, score 100 or more) Short Term Goal (STG) Pt will be able to Squat (as her L knee pain allows) to reaching for low items without falling. 09/17/22: Pt able to semi-squat holding onto things at home. STG Duration 08/26/22 (09/17/22: MET GOAL). Halfway Goal (LTG) Improve function per ABC score >80 (1<20% impaired, score 81 -99). 09/17/22: ABC score 56.25. LTG Duration 10/24/22 slightly improved . Assessment Summary Assessment Continue with planned POC for balance, core stability, and gait training. Extra time taken for DA to interpret to pt, but it helps to show pt visually how to do exercise. Gastroc stretch is hard for pt to hold constant. Noted decreased L hip strength and decreased L time. Physical Therapy Plan Frequency and Duration Frequency of Treatment 2x/Week Plan of Care Start Date 07/26/22 Plan of Care End Date 10/24/22 Next Visit Focus/Plan Next Note Type Treatment Note Next Visit Plan Focus on balance and core stability. Review gastroc/ soleus stretch position pt doing at home (runner's vs toes on wall/step) Add resisted stair stepping for LE strengthening and PRE's as tolerated on L knee. Progress Balance/Coordination/ LE & core strengthening for stair ambulation safety & to improve safety with gait and improve speed. Try Shuttle Balance with tilt to R side to encourage pt lean to L in standing and with activity and for squatting. Pt/Caregiver education for HEP as needed.
--- NOTE | 2022-10-25 17:10 | PT.OPPN ---
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) Pain in left knee (10/24/22) Muscle weakness (generalized) (10/24/22) Other abnormalities of gait and mobility (10/24/22) Repeated falls (10/24/22) Physical Therapy Progress Note PT-OP-A Visit Information Start: 05/09/22 19:03 Freq: Status: Active Protocol: Document 10/24/22 09:07 LRN (Rec: 10/24/22 09:52 LRN [id number]) Out-Patient Physical Therapy Visit Information Visit Information Visit Type Treatment Note Visit Start Time 09:07 Visit Stop Time 09:45 Total Visit Minutes 38 Visit Number 25 Evaluation Information Evaluation Date 05/14/22 Precautions Precautions s/p PLATE MILL HAND (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 PT-OP-B Current Condition Start: 05/09/22 19:03 Freq: Status: Active Protocol: Document 07/26/22 10:30 DCW (Rec: 07/26/22 11:10 DCW [id number]) Current Condition History of Current Condition Onset Date 03/04/22 Current Complaints Balance problem and weakness in LE's and low endurance History of Current Condition Surgery at for Ventriculoperitoneal (PLATE MILL HAND) shunt 03/04/22. Overnight hospitalization, then home. Has been walking around the house a couple times a day. Used to walk from home (near [place] school) to [employer] 4 yrs ago. Pt used to take care of house and yardwork, but not able to yet. She is walking at home around the house, touching/holding onto things for balance. Pt is walking outside by herself with a single point cane. Daughter states prior to surgery she had a magnet shuffling- Parkingson's type gait, but not since surgery. She used to fall 3x/week, but since her surgery has fallen 3 times, but balance is much improved and speed of walking has improved since surgery. Her neurologist at [facility] and at recommended physical therapy. PCP started referral. CARO was nurse practitioner at ER and now is a nurse in ER (PACU). Works 3 -4x/weeks, therefore pt stays by self when DA works. DA is leaving State for reserve work 05/25-06/24; therefore the pt will be going to stay with her other daughter out of state. 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 Reports she does not do anything at the hair salon or the dentist's office that requires her to lay her head back far. Admits she has had CRM off and on from different ENTs, both when they were visiting [place] and locally. Prior Treatments and Tests None. Future Testing and Treatments Planned Dr. Kirk f/u visit @ . No future appts with PCP. Developmental History Developmental History Attended [facility] until end of February 2022 due to falls, then insurance changed. Was falling frequently prior to surgery and since surgery has fallen 3x. DA reports pt has pain in L back and L medial knee pain from previous falls (L knee pain from landing on the knee from slipping on leaves outside). Treatment Goals Patient/Caregiver Goals Pt goals per DA interpretation : - Better balance not LOB on stairs, and - Falling no more than (was 3x /week) once per month with use of assistive device as needed . - Squat (as her L knee pain allows) to reaching for low items without falling. - Join [employer] for exercise. - Walking around home without holding onto the jarrell. Prior Functional Status Baseline Function- ADL's Modified Independent Baseline Function- Mobility Modified Independent Baseline Function- Gait Walked with Hortencia Baseline Function- Other Fell 3-4x/week. Current Functional Impairments (Reported) Functional Limitations- ADL's Ambulates 15 stairs to get to bedroom using railing on both sides (except 20 ft no railing ). Has fallen down stairs ( holding her dog, who is now ). Walking around the house holding onto things Walkiing outside with SPC on concrete with a little incline ~ 1 blocks. Functional Limitations- Mobility/Gait Independent ADLs. Personal Factors Other Personal Factors That May Effect Pt [place] language is Yakut. Therapy/Recovery Daughter (CARO) is her clock and watch hands painter. Pt lives with CARO who works 8- 12 hour days on specialty person and is alone when DA. Pt walks alone with SPC, no life alert. Pt has fallen down stairs backwards when using stairs with carrying objects in hands . PT-OP-C Subjective Start: 05/09/22 19:03 Freq: Status: Active Protocol: Document 10/24/22 09:07 LRN (Rec: 10/24/22 09:52 LRN [id number]) OP-PT Subjective Patient Comments Patient Comments DA doesn't note much change in her dizziness on turning sine last treatment. DA states pt did better on escalator when going to trip to [place] last week. PT-OP-D Balance Start: 05/09/22 19:03 Freq: Status: Active Protocol: Document 09/17/22 13:04 LRN (Rec: 09/17/22 13:52 LRN [id number]) Balance Tests Single Limb Standing Single Limb- Right 1 Single Limb- Left 2 Tandem Tandem Standing 1 Joshi Balance Assessment Evaluation Sitting to Standing Ability Independent w/out Hands Unsupported Stance Safely- 2 minutes Sitting Unsupported, Feet on Floor Safely- 2 minutes Standing to Sitting Ability Safely, Minimal Hand Use Transfer Ability Safely, Minimal Hand Use Unsupported Stance- Eyes Closed Safely, 10 seconds Unsupported Stance- Eyes Open Independent, 1 minute Reaching Forward Standing Confidently, 10 inches Pick- Up Object From Floor Independent/Safe Look Behind Shoulder - Standing Shifts Weight Well Turning 360 Degrees Turns slowly, but safely Unsupported Stance, Alternating Feet on (I)- 8 Steps in 20 secs Stair Unsupported Tandem Stance Balance Lost- Step/Stand Unilateral Leg Stance Lifts Leg/Unable to Hold Total Score Joshi Total Score (out of 56 points) 47 Joshi Impairment Rating 1 to 19% Impaired (Score 45-55 ) PT-OP-E Functional Tests Start: 05/09/22 19:03 Freq: Status: Active Protocol: Document 08/01/22 08:17 LRN (Rec: 08/01/22 09:03 LRN [id number]) Functional Tests 30 Second Sit to Stand Test Score 11 Comments Norm for 80-84 yo women is 9- 14x. Five Times Sit to Stand Test Score 19, 12 secs Comments Norm for 80-89 yo's is 14.8 secs. Fall risk if > or = 12 secs Timed Up and Go (TUG) Score 12 Comments No use of hands, from webbed chairl, slip ons. TUG Impairment Rating 20 to <40% Impaired (Score 12- 13) Other Gait Speed Name of Test Gait speed Score 20'/6 = 3.33 ft/sec Comment 2.62-3.94 ft/sec for community gait speed PT-OP-G Mobility & Gait Start: 05/09/22 19:03 Freq: Status: Active Protocol: Document 09/17/22 13:04 LRN (Rec: 09/17/22 13:52 LRN [id number]) OP Gait Assessment Gait Gait Assistance Required: Independent Able to Maintain Weight Bearing Status Yes During Gait Assistive Devices Assistive Device Straight Cane PT-OP-H Neuro Start: 05/09/22 19:03 Freq: Status: Active Protocol: Document 05/14/22 09:50 LRN (Rec: 05/14/22 12:37 LRN [id number]) Sensation Evaluation Gross Sensation Gross Sensation WNL PT-OP-M Strength Start: 05/09/22 19:03 Freq: Status: Active Protocol: Document 05/24/22 09:04 LRN (Rec: 05/24/22 09:49 LRN [id number]) Hip Strength Hip Manual Muscle Testing Right Flexion (L2) 3 Fair Abduction 3 Fair Adduction 5 Normal External Rotation 5 Normal Internal Rotation 3 Fair Left Flexion (L2) 3 Fair Abduction 3 Fair Adduction 3 Fair External Rotation 3 Fair Internal Rotation 3 Fair PT-OP-O Vestibular Start: 07/26/22 10:56 Freq: Status: Active Protocol: Document 10/15/22 13:02 DCW (Rec: 10/15/22 13:14 DCW [id number]) Vestibular Assessment Positional Testing Mariela-Hallpike Negative Left,Negative Right PT-OP-T Assessment and Plan Start: 05/09/22 19:03 Freq: Status: Active Protocol: Document 10/24/22 09:07 LRN (Rec: 10/24/22 09:52 LRN [id number]) Physical Therapy Assessment Rehab Potential Rehabilitation Potential Good Evaluation Complexity Number of Personal Factors/Comorbidities 1-2 Number of Body Systems Impaired 3 Clinical Presentation at Evaluation Evolving Impairments Impairments Activity Tolerance,Balance, Gait,Strength Goals Five Impairment Positive Mariela-Hallpike test bilaterally Short Term Goal (STG) Pt to test negative with all positional testing bilaterally STG Duration Met Three Impairment Balance Impairment Initial Joshi Balance Score - 44 (20-39% impaired, score 34- 44) Initial: Pt falling 3x/week or 3x/month. Short Term Goal (STG) Pt will improve balance as noted with no LOB on stairs. STG Duration 11/09/22 Alf Goal (LTG) Improve balance per Joshi Balance score >44 (1-19% impaired, score 45-55), with pt falling no more than (was 3x/week) or no more than 1x/ month with use of assistive device. 08/01/22: JOSHI score 47 (1-19% impaired, score 45-55). LTG Duration 12/24/22 (08/01/22: JOSHI score goal met) Two Impairment Decreased LE Strength/ decreased endurance Impairment Initial 30 sec chair stand is 7x (norm for 80-84 yo women is 9-14 times) Short Term Goal (STG) Improve 30 sec Chair Stand test to 9x, with pt able to walking around her home without holding onto the jarrell . 08/01/22: 30 Sec Chair Stand test - 11 reps. Pt walking around her home sometimes reaching out. STG Duration 11/09/22 (08/11/22: Partially met goal) Alf Goal (LTG) Pt will be able to join [employer] for an exercise program. LTG Duration 12/24/22 One Impairment Decreased function per ABC & DHI score Impairment ABC score 54.375 (40 <60% impaired, score 41-60) Dizziness Questionnaire 196 ( 100% impaired, score 100 or more) Short Term Goal (STG) Pt will be able to Squat (as her L knee pain allows) to reaching for low items without falling. 09/17/22: Pt able to semi-squat holding onto things at home. STG Duration 08/26/22 (09/17/22: MET GOAL). Crop Duster Goal (LTG) Improve function per ABC score >80 (1<20% impaired, score 81 -99). 09/17/22: ABC score 56.25. LTG Duration 12/24/22 slightly improved . Assessment Summary Assessment Pt met vestibular goal. Pt will benefit from continued skilled physical therapy to improve balance and safety with gait. The daughter has noted improvement outside of her home that the pt is able to manage variable surfaces with greater ease (ex- escalator). Continue with planned POC for balance, core stability, and gait training. Extra time taken for DA to interpret to pt, but it helps to show pt visually how to do exercise. Pt has decreased L hip strength and decreased L time. Gastroc stretch was difficult for pt to perform. Physical Therapy Plan Frequency and Duration Frequency of Treatment 2x/Week Plan of Care Start Date 10/24/22 Plan of Care End Date 12/24/22 Therapeutic Interventions Therapeutic Interventions Balance Training,Gait Training ,Home Exercise Program, Neuromuscular Re-education, Patient/Caregiver Education, Self-Care/Home Management, Therapeutic Activities, Therapeutic Exercises Modalities Cold Pack/Ice Massage Next Visit Focus/Plan Next Note Type Treatment Note Next Visit Plan Focus on balance and core stability. Review gastroc/ soleus stretch position pt doing at home (runner's vs toes on wall/step) Add resisted stair stepping for LE strengthening and PRE's as tolerated on L knee. Progress Balance/Coordination/ LE & core strengthening for stair ambulation safety & to improve safety with gait and improve speed. Try Shuttle Balance with tilt to R side to encourage pt lean to L in standing and with activity and for squatting. Pt/Caregiver education for HEP as needed.
--- NOTE | 2022-10-25 17:10 | PT.OPPOC ---
Physical, Occupational & Speech Therapy At 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) Pain in left knee (10/24/22) Muscle weakness (generalized) (10/24/22) Other abnormalities of gait and mobility (10/24/22) Repeated falls (10/24/22) Visit Care Team Role Provider Type Oli Victoria MD Attending Provider Physician Family Provider Primary Care Provider Referring Provider Specialty: Family Practice Address: [address] [place] [address], [facility] Email: [email or web address] Plan Of Care PT-OP-T Assessment and Plan Start: 05/09/22 19:03 Freq: Status: Active Protocol: Document 10/24/22 09:07 LRN (Rec: 10/24/22 09:52 LRN [id number]) Physical Therapy Assessment Rehab Potential Rehabilitation Potential Good Evaluation Complexity Number of Personal Factors/Comorbidities 1-2 Number of Body Systems Impaired 3 Clinical Presentation at Evaluation Evolving Impairments Impairments Activity Tolerance,Balance, Gait,Strength Goals Five Impairment Positive Mariela-Hallpike test bilaterally Short Term Goal (STG) Pt to test negative with all positional testing bilaterally STG Duration Met Three Impairment Balance Impairment Initial Walker Balance Score - 44 (20-39% impaired, score 34- 44) Initial: Pt falling 3x/week or 3x/month. Short Term Goal (STG) Pt will improve balance as noted with no LOB on stairs. STG Duration 11/09/22 Sports Intern Goal (LTG) Improve balance per Walker Balance score >44 (1-19% impaired, score 45-55), with pt falling no more than (was 3x/week) or no more than 1x/ month with use of assistive device. 08/01/22: WALKER score 47 (1-19% impaired, score 45-55). LTG Duration 12/24/22 (08/01/22: WALKER score goal met) Two Impairment Decreased LE Strength/ decreased endurance Impairment Initial 30 sec chair stand is 7x (norm for 80-84 yo women is 9-14 times) Short Term Goal (STG) Improve 30 sec Chair Stand test to 9x, with pt able to walking around her home without holding onto the jarrell . 08/01/22: 30 Sec Chair Stand test - 11 reps. Pt walking around her home sometimes reaching out. STG Duration 11/09/22 (08/11/22: Partially met goal) Sports Intern Goal (LTG) Pt will be able to join [employer] for an exercise program. LTG Duration 12/24/22 One Impairment Decreased function per ABC & DHI score Impairment ABC score 54.375 (40 <60% impaired, score 41-60) Dizziness Questionnaire 196 ( 100% impaired, score 100 or more) Short Term Goal (STG) Pt will be able to Squat (as her L knee pain allows) to reaching for low items without falling. 09/17/22: Pt able to semi-squat holding onto things at home. STG Duration 08/26/22 (09/17/22: MET GOAL). Sports Intern Goal (LTG) Improve function per ABC score >80 (1<20% impaired, score 81 -99). 09/17/22: ABC score 56.25. LTG Duration 12/24/22 slightly improved . Assessment Summary Assessment Pt met vestibular goal. Pt will benefit from continued skilled physical therapy to improve balance and safety with gait. The daughter has noted improvement outside of her home that the pt is able to manage variable surfaces with greater ease (ex- escalator). Continue with planned POC for balance, core stability, and gait training. Extra time taken for DA to interpret to pt, but it helps to show pt visually how to do exercise. Pt has decreased L hip strength and decreased L time. Gastroc stretch was difficult for pt to perform. Physical Therapy Plan Frequency and Duration Frequency of Treatment 2x/Week Plan of Care Start Date 10/24/22 Plan of Care End Date 12/24/22 Therapeutic Interventions Therapeutic Interventions Balance Training,Gait Training ,Home Exercise Program, Neuromuscular Re-education, Patient/Caregiver Education, Self-Care/Home Management, Therapeutic Activities, Therapeutic Exercises Modalities Cold Pack/Ice Massage Next Visit Focus/Plan Next Note Type Treatment Note Next Visit Plan Focus on balance and core stability. Review gastroc/ soleus stretch position pt doing at home (runner's vs toes on wall/step) Add resisted stair stepping for LE strengthening and PRE's as tolerated on L knee. Progress Balance/Coordination/ LE & core strengthening for stair ambulation safety & to improve safety with gait and improve speed. Try Shuttle Balance with tilt to R side to encourage pt lean to L in standing and with activity and for squatting. Pt/Caregiver education for HEP as needed. Plan of Care Dates Plan of Care Start Date 10/24/22 Plan of Care End Date 12/24/22 Electronically Signed by: Judy Mc, PT 10/25/22 [id number] If you are in agreement with this Plan of Care, please return a signed and dated copy. I have reviewed this Plan of Care and certify that the skilled therapy services above are required to meet the patient?s needs. Physician Signature Date Printed Name and Credentials Clinical Instructor Signature Printed Name and Credentials
--- NOTE | 2022-10-28 09:45 | PT.OTN ---
Current Diagnoses Other specified disorders of brain (10/28/22) Pain in left knee (10/28/22) Muscle weakness (generalized) (10/28/22) Other abnormalities of gait and mobility (10/28/22) Repeated falls (10/28/22) Physical Therapy Treatment Note PT-OP-A Visit Information Start: 05/09/22 19:03 Freq: Status: Active Protocol: Document 10/28/22 09:06 SP (Rec: 10/28/22 09:49 SP [id number]) Out-Patient Physical Therapy Visit Information Visit Information Visit Type Treatment Note Visit Note BRENDA Felix provided instruction in goal assessment in balance and ther ex while under direct supervision and instruction of of [employer] Jihan Visit Start Time 09:06 Visit Stop Time 09:45 Total Visit Minutes 39 Visit Number Number of [employer] Visits 1 Evaluation Information Evaluation Date 05/14/22 Precautions Precautions s/p BLAST HOLE DRILLER (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 PT-OP-B Current Condition Start: 05/09/22 19:03 Freq: Status: Active Protocol: Document 07/26/22 10:30 DCW (Rec: 07/26/22 11:10 DCW [id number]) Current Condition History of Current Condition Onset Date 03/04/22 Current Complaints Balance problem and weakness in LE's and low endurance History of Current Condition Surgery at for Ventriculoperitoneal (BLAST HOLE DRILLER) shunt 03/04/22. Overnight hospitalization, then home. Has been walking around the house a couple times a day. Used to walk from home (near high school) to [employer] 4 yrs ago. Pt used to take care of house and yardwork, but not able to yet. She is walking at home around the house, touching/holding onto things for balance. Pt is walking outside by herself with a single point cane. Daughter states prior to surgery she had a magnet shuffling- Parkings[place]'s type gait, but not since surgery. She used to fall 3x/week, but since her surgery has fallen 3 times, but balance is much improved and speed of walking has improved since surgery. Her neurologist at [facility] and at recommended physical therapy. PCP started referral. CARO was nurse practitioner at ER and now is a nurse in ER ([employer]). Works 3 -4x/weeks, therefore pt stays by self when DA works. CARO is leaving [place] for reserve work 05/25-06/24; therefore the pt will be going to stay with her other daughter out of state. 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 Reports she does not do anything at the hair salon or the dentist's office that requires her to lay her head back far. Admits she has had CRM off and on from different ENTs, both when they were visiting [place] and locally. Prior Treatments and Tests None. Future Testing and Treatments Planned Dr. Kirk f/u visit @ . No future appts with PCP. Developmental History Developmental History Attended [facility] until end of February 2022 due to falls, then insurance changed. Was falling frequently prior to surgery and since surgery has fallen 3x. DA reports pt has pain in L back and L medial knee pain from previous falls (L knee pain from landing on the knee from slipping on leaves outside). Treatment Goals Patient/Caregiver Goals Pt goals per DA interpretation : - Better balance not LOB on stairs, and - Falling no more than (was 3x /week) once per month with use of assistive device as needed . - Squat (as her L knee pain allows) to reaching for low items without falling. - Join [employer] for exercise. - Walking around home without holding onto the jarrell. Prior Functional Status Baseline Function- ADL's Modified Independent Baseline Function- Mobility Modified Independent Baseline Function- Gait Walked with Hortencia Baseline Function- Other Fell 3-4x/week. Current Functional Impairments (Reported) Functional Limitations- ADL's Ambulates 15 stairs to get to bedroom using railing on both sides (except 20 ft no railing ). Has fallen down stairs ( holding her dog, who is now ). Walking around the house holding onto things Walkiing outside with SPC on concrete with a little incline ~ 1 blocks. Functional Limitations- Mobility/Gait Independent ADLs. Personal Factors Other Personal Factors That May Effect Pt [place] language is Upper Sorbian. Therapy/Recovery Daughter (CARO) is her certified court interpreter. Pt lives with CARO who works 8- 12 hour days on shrimper and is alone when DA. Pt walks alone with SPC, no life alert. Pt has fallen down stairs backwards when using stairs with carrying objects in hands . PT-OP-C Subjective Start: 05/09/22 19:03 Freq: Status: Active Protocol: Document 10/28/22 09:06 SP (Rec: 10/28/22 09:49 SP [id number]) OP-PT Subjective Patient Comments Patient Comments Pt's daughter translates for pt, states doing good. PT-OP-D Balance Start: 05/09/22 19:03 Freq: Status: Active Protocol: Document 10/28/22 09:06 SP (Rec: 10/28/22 09:49 SP [id number]) Balance Tests Walker Balance Test Walker Balance Test Score 49 Walker Impairment Rating 1 to 19% Impaired (Score 45-55 ) Walker Balance Assessment Total Score Walker Impairment Rating 1 to 19% Impaired (Score 45-55 ) PT-OP-E Functional Tests Start: 05/09/22 19:03 Freq: Status: Active Protocol: Document 08/01/22 08:17 LRN (Rec: 08/01/22 09:03 LRN [id number]) Functional Tests 30 Second Sit to Stand Test Score 11 Comments Norm for 80-84 yo women is 9- 14x. Five Times Sit to Stand Test Score 19, 12 secs Comments Norm for 80-89 yo's is 14.8 secs. Fall risk if > or = 12 secs Timed Up and Go (TUG) Score 12 Comments No use of hands, from webbed chairl, slip ons. TUG Impairment Rating 20 to <40% Impaired (Score 12- 13) Other Gait Speed Name of Test Gait speed Score 20'/6 = 3.33 ft/sec Comment 2.62-3.94 ft/sec for community gait speed PT-OP-G Mobility & Gait Start: 05/09/22 19:03 Freq: Status: Active Protocol: Document 09/17/22 13:04 LRN (Rec: 09/17/22 13:52 LRN [id number]) OP Gait Assessment Gait Gait Assistance Required: Independent Able to Maintain Weight Bearing Status Yes During Gait Assistive Devices Assistive Device Straight Cane PT-OP-H Neuro Start: 05/09/22 19:03 Freq: Status: Active Protocol: Document 05/14/22 09:50 LRN (Rec: 05/14/22 12:37 LRN [id number]) Sensation Evaluation Gross Sensation Gross Sensation WNL PT-OP-M Strength Start: 05/09/22 19:03 Freq: Status: Active Protocol: Document 05/24/22 09:04 LRN (Rec: 05/24/22 09:49 LRN [id number]) Hip Strength Hip Manual Muscle Testing Right Flexion (L2) 3 Fair Abduction 3 Fair Adduction 5 Normal External Rotation 5 Normal Internal Rotation 3 Fair Left Flexion (L2) 3 Fair Abduction 3 Fair Adduction 3 Fair External Rotation 3 Fair Internal Rotation 3 Fair PT-OP-O Vestibular Start: 07/26/22 10:56 Freq: Status: Active Protocol: Document 10/15/22 13:02 DCW (Rec: 10/15/22 13:14 DCW [id number]) Vestibular Assessment Positional Testing Mariela-Hallpike Negative Left,Negative Right PT-OP-Q Treatments Start: 05/09/22 19:03 Freq: Status: Active Protocol: Document 10/28/22 09:06 SP (Rec: 10/28/22 09:49 SP [id number]) Therapeutic Exercises Sitting Exercises Sit<>Stands Sitting Exercise Name Sit<>Stands from webbed chair w/o hands Equipment Used 18 mesh chair: Reps/Minutes 10 reps, 14 reps in 30 sec () GOAL MET Comments good response Neuro Re-Education Treatment Balance Activities WALKER Details feedback to GOAL 10/28/22 Comments 49/56 Blue foam Details stagger Equipment oval foam Comments head turns Sways/ LOB with HTs L LLE in back position, CG/ Min A cues tallposturing, looking at items for stabilizing, improved stability. PT-OP-T Assessment and Plan Start: 05/09/22 19:03 Freq: Status: Active Protocol: Document 10/28/22 09:06 SP (Rec: 10/28/22 09:49 SP [id number]) Physical Therapy Assessment Goals Five Impairment Positive [place]-Hallpike test bilaterally Short Term Goal (STG) Pt to test negative with all positional testing bilaterally STG Duration Met Three Impairment Balance Impairment Initial Walker Balance Score - 44 (20-39% impaired, score 34- 44) Initial: Pt falling 3x/week or 3x/month. Short Term Goal (STG) Pt will improve balance as noted with no LOB on stairs. STG Duration 11/09/22 Surgery Aid Goal (LTG) Improve balance per Walker Balance score >44 (1-19% impaired, score 45-55), with pt falling no more than (was 3x/week) or no more than 1x/ month with use of assistive device. 08/01/22: WALKER score 47 (1-19% impaired, score 45-55). 10/28/22: GOAL MET LTG Duration 12/24/22 (GOAL MET 10/28/22) Two Impairment Decreased LE Strength/ decreased endurance Impairment Initial 30 sec chair stand is 7x (norm for 80-84 yo women is 9-14 times) Short Term Goal (STG) Improve 30 sec Chair Stand test to 9x, with pt able to walking around her home without holding onto the jarrell . 08/01/22: 30 Sec Chair Stand test - 11 reps. Pt walking around her home sometimes reaching out. 10/28/22: MET goal: 10 reps in 30 sec, 2nd attempt 14 reps in 30 sec after discussed is a timed test for speed and safety descent. STG Duration 11/09/22 (10/28/22: GOAL MET) Surgery Aid Goal (LTG) Pt will be able to join [employer] for an exercise program. 10/28/22: not started this yet. LTG Duration 12/24/22 One Impairment Decreased function per ABC & DHI score Impairment ABC score 54.375 (40 <60% impaired, score 41-60) Dizziness Questionnaire 196 ( 100% impaired, score 100 or more) Short Term Goal (STG) Pt will be able to Squat (as her L knee pain allows) to reaching for low items without falling. 09/17/22: Pt able to semi-squat holding onto things at home. STG Duration 08/26/22 (09/17/22: MET GOAL). Mcc Goal (LTG) Improve function per ABC score >80 (1<20% impaired, score 81 -99). 09/17/22: ABC score 56.25. LTG Duration 12/24/22 slightly improved . Progress Towards Goals Progress Towards Goals Progressing Toward Goals Progress Comments MET STG #2 14 reps STS in 30sec MET LTG #3 [id number] Assessment Summary Assessment Pt making gains in stability, see MET goals, progressing in WALKER Balance 49/56, challenged with tandem and SLS and uneven surface gait without UE support. Physical Therapy Plan Frequency and Duration Frequency of Treatment 2x/Week Plan of Care Start Date 10/24/22 Plan of Care End Date 12/24/22 Therapeutic Interventions Therapeutic Interventions Balance Training,Gait Training ,Home Exercise Program, Neuromuscular Re-education, Patient/Caregiver Education, Self-Care/Home Management, Therapeutic Activities, Therapeutic Exercises Modalities Cold Pack/Ice Massage Next Visit Focus/Plan Next Note Type Treatment Note Next Visit Plan Reassess ABC and stair mgt goals. POC: Focus on balance and core stability. Review gastroc/ soleus stretch position pt doing at home (runner's vs toes on wall/step) Add resisted stair stepping for LE strengthening and PRE's as tolerated on L knee. Progress Balance/Coordination/ LE & core strengthening for stair ambulation safety & to improve safety with gait and improve speed. Try Shuttle Balance with tilt to R side to encourage pt lean to L in standing and with activity and for squatting. Pt/Caregiver education for HEP as needed.
--- NOTE | 2022-11-07 16:19 | PT.OTN ---
Current Diagnoses Other specified disorders of brain (11/07/22) Pain in left knee (11/07/22) Muscle weakness (generalized) (11/07/22) Other abnormalities of gait and mobility (11/07/22) Repeated falls (11/07/22) Physical Therapy Treatment Note PT-OP-A Visit Information Start: 05/09/22 19:03 Freq: Status: Active Protocol: Document 11/07/22 15:19 LRN (Rec: 11/07/22 16:13 LRN [id number]) Out-Patient Physical Therapy Visit Information Visit Information Visit Type Treatment Note Visit Note 2 after PN Visit Start Time 15:19 Visit Stop Time 15:57 Total Visit Minutes 38 Visit Number Evaluation Information Evaluation Date 05/14/22 Precautions Precautions s/p PHARMACIST IN CHARGE (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 PT-OP-B Current Condition Start: 05/09/22 19:03 Freq: Status: Active Protocol: Document 07/26/22 10:30 DCW (Rec: 07/26/22 11:10 DCW [id number]) Current Condition History of Current Condition Onset Date 03/04/22 Current Complaints Balance problem and weakness in LE's and low endurance History of Current Condition Surgery at for Ventriculoperitoneal (PHARMACIST IN CHARGE) shunt 03/04/22. Overnight hospitalization, then home. Has been walking around the house a couple times a day. Used to walk from home (near high school) to [employer] 4 yrs ago. Pt used to take care of house and yardwork, but not able to yet. She is walking at home around the house, touching/holding onto things for balance. Pt is walking outside by herself with a single point cane. Daughter states prior to surgery she had a magnet shuffling- Parkingson's type gait, but not since surgery. She used to fall 3x/week, but since her surgery has fallen 3 times, but balance is much improved and speed of walking has improved since surgery. Her neurologist at [facility] and at recommended physical therapy. PCP started referral. CARO was nurse practitioner at ER and now is a nurse in ER ([employer]). Works 3 -4x/weeks, therefore pt stays by self when CARO works. CARO is leaving [place] for reserve work 05/25-06/24; therefore the pt will be going to stay with her other daughter out of state. 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 Reports she does not do anything at the hair salon or the dentist's office that requires her to lay her head back far. Admits she has had CRM off and on from different ENTs, both when they were visiting [place] and locally. Prior Treatments and Tests None. Future Testing and Treatments Planned Dr. Kirk f/u visit @ . No future appts with PCP. Developmental History Developmental History Attended [facility] until end of February 2022 due to falls, then insurance changed. Was falling frequently prior to surgery and since surgery has fallen 3x. DA reports pt has pain in L back and L medial knee pain from previous falls (L knee pain from landing on the knee from slipping on leaves outside). Treatment Goals Patient/Caregiver Goals Pt goals per DA interpretation : - Better balance not LOB on stairs, and - Falling no more than (was 3x /week) once per month with use of assistive device as needed . - Squat (as her L knee pain allows) to reaching for low items without falling. - Join [employer] for exercise. - Walking around home without holding onto the jarrell. Prior Functional Status Baseline Function- ADL's Modified Independent Baseline Function- Mobility Modified Independent Baseline Function- Gait Walked with Hortencia Baseline Function- Other Fell 3-4x/week. Current Functional Impairments (Reported) Functional Limitations- ADL's Ambulates 15 stairs to get to bedroom using railing on both sides (except 20 ft no railing ). Has fallen down stairs ( holding her dog, who is now ). Walking around the house holding onto things Walkiing outside with SPC on concrete with a little incline ~ 1 blocks. Functional Limitations- Mobility/Gait Independent ADLs. Personal Factors Other Personal Factors That May Effect Pt ambler language is Turkish. Therapy/Recovery Daughter (CARO) is her flight operations specialist. Pt lives with CARO who works 8- 12 hour days on geospatial developer and is alone when DA. Pt walks alone with SPC, no life alert. Pt has fallen down stairs backwards when using stairs with carrying objects in hands . PT-OP-C Subjective Start: 05/09/22 19:03 Freq: Status: Active Protocol: Document 11/07/22 15:19 LRN (Rec: 11/07/22 16:13 LRN [id number]) OP-PT Subjective Patient Comments Patient Comments DA states mom has been walking a lot and exercising. Patient Questionnaires ABC- Activity Specific Balance Confidence Scale ABC Score 59 ABC Functional Impairment 40 to <60% Impaired (Score 41- 60) PT-OP-D Balance Start: 05/09/22 19:03 Freq: Status: Active Protocol: Document 10/28/22 09:06 SP (Rec: 10/28/22 09:49 SP [id number]) Balance Tests Walker Balance Test Walker Balance Test Score 49 Walker Impairment Rating 1 to 19% Impaired (Score 45-55 ) Walker Balance Assessment Total Score Walker Impairment Rating 1 to 19% Impaired (Score 45-55 ) PT-OP-E Functional Tests Start: 05/09/22 19:03 Freq: Status: Active Protocol: Document 08/01/22 08:17 LRN (Rec: 08/01/22 09:03 LRN [id number]) Functional Tests 30 Second Sit to Stand Test Score 11 Comments Norm for 80-84 yo women is 9- 14x. Five Times Sit to Stand Test Score 19, 12 secs Comments Norm for 80-89 yo's is 14.8 secs. Fall risk if > or = 12 secs Timed Up and Go (TUG) Score 12 Comments No use of hands, from webbed chairl, slip ons. TUG Impairment Rating 20 to <40% Impaired (Score 12- 13) Other Gait Speed Name of Test Gait speed Score 20'/6 = 3.33 ft/sec Comment 2.62-3.94 ft/sec for community gait speed PT-OP-G Mobility & Gait Start: 05/09/22 19:03 Freq: Status: Active Protocol: Document 09/17/22 13:04 LRN (Rec: 09/17/22 13:52 LRN [id number]) OP Gait Assessment Gait Gait Assistance Required: Independent Able to Maintain Weight Bearing Status Yes During Gait Assistive Devices Assistive Device Straight Cane PT-OP-H Neuro Start: 05/09/22 19:03 Freq: Status: Active Protocol: Document 05/14/22 09:50 LRN (Rec: 05/14/22 12:37 LRN [id number]) Sensation Evaluation Gross Sensation Gross Sensation WNL PT-OP-M Strength Start: 05/09/22 19:03 Freq: Status: Active Protocol: Document 05/24/22 09:04 LRN (Rec: 05/24/22 09:49 LRN [id number]) Hip Strength Hip Manual Muscle Testing Right Flexion (L2) 3 Fair Abduction 3 Fair Adduction 5 Normal External Rotation 5 Normal Internal Rotation 3 Fair Left Flexion (L2) 3 Fair Abduction 3 Fair Adduction 3 Fair External Rotation 3 Fair Internal Rotation 3 Fair PT-OP-O Vestibular Start: 07/26/22 10:56 Freq: Status: Active Protocol: Document 10/15/22 13:02 DCW (Rec: 10/15/22 13:14 DCW [id number]) Vestibular Assessment Positional Testing Langtry-Hallpike Negative Left,Negative Right PT-OP-Q Treatments Start: 05/09/22 19:03 Freq: Status: Active Protocol: Document 11/07/22 15:19 LRN (Rec: 11/07/22 16:13 LRN [id number]) Cardio Equipment Recumbent Elliptical ([employer]) Duration (Minutes) 4 Resistance 1 Seat Position 0 Other Back support in seat - extra minute for set up Therapeutic Exercises Sitting Exercises Sit<>Stands Sitting Exercise Name Sit<>Stands from webbed chair w/o hands Equipment Used 18 mesh chair: Reps/Minutes 3' (14 reps in 30 sec - , GOAL MET) Comments Pt shows min signs of fatigue Standing Exercises Soleus stretch Standing Exercise Name Soleus stretch Side bilateral Equipment Used Stairs & GUDELIA Reps/Minutes 5' Comments Extra time taken to review ex w/daughter as flight operations specialist. Gastroc Stretch Standing Exercise Name Gastroc stretch (more assist needed for L stretch) Side bilateral Equipment Used Stairs & GUDELIA Reps/Minutes 5' Comments Extra time taken to review ex w/daughter as flight operations specialist. Steps Standing Exercise Name Step ups coordination: one side at a time, then increasing jasmeet/speed Side bilateral Equipment Used GB w/ (1) // bars with 6 step, (2) 6 stairs/hand hold assist Reps/Minutes 10' x 2 with rests between sets PT-OP-T Assessment and Plan Start: 05/09/22 19:03 Freq: Status: Active Protocol: Document 11/07/22 15:19 LRN (Rec: 11/07/22 16:13 LRN [id number]) Physical Therapy Assessment Goals Five Impairment Positive Langtry-Hallpike test bilaterally Short Term Goal (STG) Pt to test negative with all positional testing bilaterally STG Duration Met Four Impairment Decreased safety with gait Impairment 5XSTS in 12 secs (fall risk >= 12 secs, norm for 80-89 yo's is 14.8 secs) TUG - assessed is 19 & 15 secs (avg for 80-89 yo women is 17.2 secs) Gait speed - assessed on is 2.5 ft/sec. Short Term Goal (STG) Improve 5XSTS score or TUG score <14 secs, indicating decreased risk of falls. 05/17/22: TUG (2 trials) 19 & 15 secs. 08/01/22: TUG 12 secs. STG Duration 08/26/22 (08/01/22: MET GOAL) Fci Goal (LTG) Improve gait speed for safe community ambulation 2.62-3.94 ft/sec (safe to cross street gait speed of >3.9 ft/sec). 05/17/22: Gt speed is 2.5 ft/ sec. (: Gt speed 20'/8 = 2. 5 ft/sec) 08/01/22: Gt speed 20'/6 = 3. 33 ft/sec. LTG Duration 10/24/22 (08/01/22: MET GOAL) Three Impairment Balance Impairment Initial Walker Balance Score - 44 (20-39% impaired, score 34- 44) Initial: Pt falling 3x/week or 3x/month. Short Term Goal (STG) Pt will improve balance as noted with no LOB on stairs. STG Duration 11/09/22 Fci Goal (LTG) Improve balance per Walker Balance score >44 (1-19% impaired, score 45-55), with pt falling no more than (was 3x/week) or no more than 1x/ month with use of assistive device. 08/01/22: WALKER score 47 (1-19% impaired, score 45-55). 10/28/22: GOAL MET LTG Duration 12/24/22 (GOAL MET 10/28/22) Two Impairment Decreased LE Strength/ decreased endurance Impairment Initial 30 sec chair stand is 7x (norm for 80-84 yo women is 9-14 times) Short Term Goal (STG) Improve 30 sec Chair Stand test to 9x, with pt able to walking around her home without holding onto the jarrell . 08/01/22: 30 Sec Chair Stand test - 11 reps. Pt walking around her home sometimes reaching out. 10/28/22: MET goal: 10 reps in 30 sec, 2nd attempt 14 reps in 30 sec after discussed is a timed test for speed and safety descent. STG Duration 11/09/22 (10/28/22: GOAL MET) Rn Anesthetist Goal (LTG) Pt will be able to join [employer] for an exercise program. 10/28/22: not started this yet. 11/07/22: Schedule of CARO cutler it difficult to start ex program in gym. LTG Duration 12/24/22 One Impairment Decreased function per ABC & DHI score Impairment ABC score 54.375 (40 <60% impaired, score 41-60) Dizziness Questionnaire 196 ( 100% impaired, score 100 or more) Short Term Goal (STG) Pt will be able to Squat (as her L knee pain allows) to reaching for low items without falling. 09/17/22: Pt able to semi-squat holding onto things at home. STG Duration 08/26/22 (09/17/22: MET GOAL). Rn Anesthetist Goal (LTG) Improve function per ABC score >80 (1<20% impaired, score 81 -99). 09/17/22: ABC score 56.25. LTG Duration 12/24/22 slightly improved . Progress Towards Goals Progress Comments Improved function per ABC score 59 (was 56), 40<60% impairment, score 41-60. Assessment Summary Assessment Improvement in function, but impairment same per ABC score of 59 (was 56); possibly due to weak LE's. General ex needed ([employer] or recumbent bike). Gastroc stretch (more assist needed positioning for L side). Pt reports stretching, but DA notes pt may need assist at home. Physical Therapy Plan Frequency and Duration Frequency of Treatment 2x/Week Plan of Care Start Date 10/24/22 Plan of Care End Date 12/24/22 Next Visit Focus/Plan Next Note Type Treatment Note Next Visit Plan Reassess STG #3, stair mgt goals. POC: Focus on balance and core stability. Add resisted stair stepping for LE strengthening and PRE's as tolerated on L knee. Progress Balance/Coordination/ LE & core strengthening for stair ambulation safety & to improve safety with gait and improve speed. Try Shuttle Balance with tilt to R side to encourage pt lean to L in standing and with activity and for squatting. Pt/Caregiver education for HEP as needed.
--- NOTE | 2022-11-19 10:37 | PT.OTN ---
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/22) Pain in left knee (11/19/22) Muscle weakness (generalized) (11/19/22) Other abnormalities of gait and mobility (11/19/22) Repeated falls (11/19/22) Physical Therapy Treatment Note PT-OP-A Visit Information Start: 05/09/22 19:03 Freq: Status: Active Protocol: Document 11/19/22 09:46 LRN (Rec: 11/19/22 10:37 LRN [id number]) Out-Patient Physical Therapy Visit Information Visit Information Visit Type Treatment Note Visit Note 3 after PN Visit Start Time 09:46 Visit Stop Time 10:26 Total Visit Minutes 40 Visit Number Evaluation Information Evaluation Date 05/14/22 Precautions Precautions s/p SAND PLANT ATTENDANT (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 PT-OP-B Current Condition Start: 05/09/22 19:03 Freq: Status: Active Protocol: Document 07/26/22 10:30 DCW (Rec: 07/26/22 11:10 DCW [id number]) Current Condition History of Current Condition Onset Date 03/04/22 Current Complaints Balance problem and weakness in LE's and low endurance History of Current Condition Surgery at for Ventriculoperitoneal (SAND PLANT ATTENDANT) shunt 03/04/22. Overnight hospitalization, then home. Has been walking around the house a couple times a day. Used to walk from home (near high school) to [employer] 4 yrs ago. Pt used to take care of house and yardwork, but not able to yet. She is walking at home around the house, touching/holding onto things for balance. Pt is walking outside by herself with a single point cane. Daughter states prior to surgery she had a magnet shuffling- Parkingson's type gait, but not since surgery. She used to fall 3x/week, but since her surgery has fallen 3 times, but balance is much improved and speed of walking has improved since surgery. Her neurologist at [facility] and at recommended physical therapy. PCP started referral. CARO was nurse practitioner at ER and now is a nurse in ER ([employer]). Works 3 -4x/weeks, therefore pt stays by self when CARO works. CARO is leaving [place] for reserve work 05/25-06/24; therefore the pt will be going to stay with her other daughter out of state. 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 Reports she does not do anything at the hair salon or the dentist's office that requires her to lay her head back far. Admits she has had CRM off and on from different ENTs, both when they were visiting [place] and locally. Prior Treatments and Tests None. Future Testing and Treatments Planned Dr. Kirk f/u visit @ . No future appts with PCP. Developmental History Developmental History Attended [facility] until end of February 2022 due to falls, then insurance changed. Was falling frequently prior to surgery and since surgery has fallen 3x. DA reports pt has pain in L back and L medial knee pain from previous falls (L knee pain from landing on the knee from slipping on leaves outside). Treatment Goals Patient/Caregiver Goals Pt goals per DA interpretation : - Better balance not LOB on stairs, and - Falling no more than (was 3x /week) once per month with use of assistive device as needed . - Squat (as her L knee pain allows) to reaching for low items without falling. - Join [employer] for exercise. - Walking around home without holding onto the jarrell. Prior Functional Status Baseline Function- ADL's Modified Independent Baseline Function- Mobility Modified Independent Baseline Function- Gait Walked with Hortencia Baseline Function- Other Fell 3-4x/week. Current Functional Impairments (Reported) Functional Limitations- ADL's Ambulates 15 stairs to get to bedroom using railing on both sides (except 20 ft no railing ). Has fallen down stairs ( holding her dog, who is now ). Walking around the house holding onto things Walkiing outside with SPC on concrete with a little incline ~ 1 blocks. Functional Limitations- Mobility/Gait Independent ADLs. Personal Factors Other Personal Factors That May Effect Pt ewiiaapaayp language is Wolof. Therapy/Recovery Daughter (CARO) is her typewriter assembly and parts inspector. Pt lives with CARO who works 8- 12 hour days on launch operator and is alone when DA. Pt walks alone with SPC, no life alert. Pt has fallen down stairs backwards when using stairs with carrying objects in hands . PT-OP-C Subjective Start: 05/09/22 19:03 Freq: Status: Active Protocol: Document 11/19/22 09:46 LRN (Rec: 11/19/22 10:37 LRN [id number]) OP-PT Subjective Patient Comments Patient Comments Did yardwork over weekend, sit down activities and carried some things. Da states when weather is good she walks around neighborhood 15' at a time. Does band ex's and LE ex's 2x/week. Per DA, L shoulder is painful behind the posterior deltoid, but the L knee is okay. PT-OP-D Balance Start: 05/09/22 19:03 Freq: Status: Active Protocol: Document 10/28/22 09:06 SP (Rec: 10/28/22 09:49 SP [id number]) Balance Tests Joshi Balance Test Joshi Balance Test Score 49 Joshi Impairment Rating 1 to 19% Impaired (Score 45-55 ) Joshi Balance Assessment Total Score Joshi Impairment Rating 1 to 19% Impaired (Score 45-55 ) PT-OP-E Functional Tests Start: 05/09/22 19:03 Freq: Status: Active Protocol: Document 08/01/22 08:17 LRN (Rec: 08/01/22 09:03 LRN [id number]) Functional Tests 30 Second Sit to Stand Test Score 11 Comments Norm for 80-84 yo women is 9- 14x. Five Times Sit to Stand Test Score 19, 12 secs Comments Norm for 80-89 yo's is 14.8 secs. Fall risk if > or = 12 secs Timed Up and Go (TUG) Score 12 Comments No use of hands, from webbed chairl, slip ons. TUG Impairment Rating 20 to <40% Impaired (Score 12- 13) Other Gait Speed Name of Test Gait speed Score 20'/6 = 3.33 ft/sec Comment 2.62-3.94 ft/sec for community gait speed PT-OP-G Mobility & Gait Start: 05/09/22 19:03 Freq: Status: Active Protocol: Document 09/17/22 13:04 LRN (Rec: 09/17/22 13:52 LRN [id number]) OP Gait Assessment Gait Gait Assistance Required: Independent Able to Maintain Weight Bearing Status Yes During Gait Assistive Devices Assistive Device Straight Cane PT-OP-H Neuro Start: 05/09/22 19:03 Freq: Status: Active Protocol: Document 05/14/22 09:50 LRN (Rec: 05/14/22 12:37 LRN [id number]) Sensation Evaluation Gross Sensation Gross Sensation WNL PT-OP-M Strength Start: 05/09/22 19:03 Freq: Status: Active Protocol: Document 05/24/22 09:04 LRN (Rec: 05/24/22 09:49 LRN [id number]) Hip Strength Hip Manual Muscle Testing Right Flexion (L2) 3 Fair Abduction 3 Fair Adduction 5 Normal External Rotation 5 Normal Internal Rotation 3 Fair Left Flexion (L2) 3 Fair Abduction 3 Fair Adduction 3 Fair External Rotation 3 Fair Internal Rotation 3 Fair PT-OP-O Vestibular Start: 07/26/22 10:56 Freq: Status: Active Protocol: Document 10/15/22 13:02 DCW (Rec: 10/15/22 13:14 DCW [id number]) Vestibular Assessment Positional Testing Linwood-Hallpike Negative Left,Negative Right PT-OP-Q Treatments Start: 05/09/22 19:03 Freq: Status: Active Protocol: Document 11/19/22 09:46 LRN (Rec: 11/19/22 10:37 LRN [id number]) Therapeutic Exercises Sitting Exercises PRE Knee ext strengthening Sitting Exercise Name PRE knee ext strengthening Side bilateral Equipment Used 4#, 2#, 0# Reps/Minutes 3 rep max x e Standing Exercises Knee flex PRE strengthening Standing Exercise Name Knee flex strengthening Side bilateral Equipment Used 2#, 1#, 0# Reps/Minutes 3 rep max x 3 Comments Extra time needed for training of ex. Soleus stretch Standing Exercise Name Soleus stretch Side bilateral Equipment Used GUDELIA Reps/Minutes 10 SH x 6 Comments Extra time taken to review ex w/daughter as typewriter assembly and parts inspector. Gastroc Stretch Standing Exercise Name Gastroc stretch (more assist needed for L stretch), f/b active DF x 10 Side bilateral Equipment Used GUDELIA Reps/Minutes 4' Comments Extra time taken to review ex w/daughter as typewriter assembly and parts inspector. Balance-toe raises Standing Exercise Name Toe raises for balance - holding bar, last one balance on toes Equipment Used Gait Belt Reps/Minutes 15x Comments SBA guarding needed. Balance-heel raises Standing Exercise Name Heel raises for balance - hands hovering over bar, last one Equipment Used Gait Belt Reps/Minutes 15x Comments SBA guarding needed. Steps Standing Exercise Name Stair ambulation up/down: w/ rail, w/1 rail, w/o rail. Side bilateral Equipment Used GB, Railing Reps/Minutes 4 steps up/down, 1-2 reps each assist type Comments Extra time taken for DA to interpret for PT. PT-OP-T Assessment and Plan Start: 05/09/22 19:03 Freq: Status: Active Protocol: Document 11/19/22 09:46 LRN (Rec: 11/19/22 10:37 LRN [id number]) Physical Therapy Assessment Goals Five Impairment Positive Linwood-Hallpike test bilaterally Short Term Goal (STG) Pt to test negative with all positional testing bilaterally STG Duration Met Four Impairment Decreased safety with gait Impairment 5XSTS in 12 secs (fall risk >= 12 secs, norm for 80-89 yo's is 14.8 secs) TUG - assessed is 19 & 15 secs (avg for 80-89 yo women is 17.2 secs) Gait speed - assessed on is 2.5 ft/sec. Short Term Goal (STG) Improve 5XSTS score or TUG score <14 secs, indicating decreased risk of falls. 05/17/22: TUG (2 trials) 19 & 15 secs. 08/01/22: TUG 12 secs. STG Duration 08/26/22 (08/01/22: MET GOAL) Transport Aide Goal (LTG) Improve gait speed for safe community ambulation 2.62-3.94 ft/sec (safe to cross street gait speed of >3.9 ft/sec). 05/17/22: Gt speed is 2.5 ft/ sec. (: Gt speed 20'/8 = 2. 5 ft/sec) 08/01/22: Gt speed 20'/6 = 3. 33 ft/sec. LTG Duration 10/24/22 (08/01/22: MET GOAL) Three Impairment Balance Impairment Initial Joshi Balance Score - 44 (20-39% impaired, score 34- 44) Initial: Pt falling 3x/week or 3x/month. Short Term Goal (STG) Pt will improve balance as noted with no LOB on stairs. 08/01/22: JOSHI score 47 (1-19% impaired, score 45-55). 11/19/22: Without railing, LOB to the R when descending stairs. No instability with ascending stairs. STG Duration 11/09/22 progressed Assisted Goal (LTG) Improve balance per Joshi Balance score >44 (1-19% impaired, score 45-55), with pt falling no more than (was 3x/week) or no more than 1x/ month with use of assistive device. 08/01/22: JOSHI score 47 (1-19% impaired, score 45-55). 10/28/22: GOAL MET LTG Duration 12/24/22 (GOAL MET 10/28/22) Two Impairment Decreased LE Strength/ decreased endurance Impairment Initial 30 sec chair stand is 7x (norm for 80-84 yo women is 9-14 times) Short Term Goal (STG) Improve 30 sec Chair Stand test to 9x, with pt able to walking around her home without holding onto the jarrell . 08/01/22: 30 Sec Chair Stand test - 11 reps. Pt walking around her home sometimes reaching out. 10/28/22: MET goal: 10 reps in 30 sec, 2nd attempt 14 reps in 30 sec after discussed is a timed test for speed and safety descent. STG Duration 11/09/22 (10/28/22: GOAL MET) Transport Aide Goal (LTG) Pt will be able to join [employer] for an exercise program. 10/28/22: not started this yet. 11/07/22: Schedule of DA he it difficult to start ex program in gym. 11/19/22: DA taking mother to work gym 2x/week, started last week. Added resisted stair stepping for LE strengthening at PT, pt doing 30' at gym. LTG Duration 12/24/22 (11/19/22: MET GOAL) One Impairment Decreased function per ABC & DHI score Impairment ABC score 54.375 (40 <60% impaired, score 41-60) Dizziness Questionnaire 196 ( 100% impaired, score 100 or more) Short Term Goal (STG) Pt will be able to Squat (as her L knee pain allows) to reaching for low items without falling. 09/17/22: Pt able to semi-squat holding onto things at home. STG Duration 08/26/22 (09/17/22: MET GOAL). Transport Aide Goal (LTG) Improve function per ABC score >80 (1<20% impaired, score 81 -99). 09/17/22: ABC score 56.25. LTG Duration 12/24/22 slightly improved . Assessment Summary Assessment Pt has met most of her goals. Pt has decreased balance with descent of stairs and shows some LE weakness and today has complained of L upper posterior arm pain with shoulder extension, possibly sore from gardening as she has not had any injury to report. Pt needs 2 more visits to be placed on LE PRE strengthening for her knee and single leg balance ex's for safety descending stairs. Physical Therapy Plan Frequency and Duration Frequency of Treatment 2x/Week Plan of Care Start Date 10/24/22 Plan of Care End Date 12/24/22 Next Visit Focus/Plan Next Note Type Treatment Note Next Visit Plan DC in 2 visits after placing pt onto HEP of LE strengthening and balance ex's . Focus on teaching/exercise of balance/proprioceptive ex's for descending stairs (SLS) and core stability. Add: PRE's as tolerated for anabelle knee strengthening with caution due to history of L knee pain. POC for stair ambulation safety & to improve safety with gait and improve speed. Try Shuttle Balance with tilt to R side to encourage pt lean to L in standing (descending stairs-SLS). Pt/Caregiver education for HEP as needed.
--- NOTE | 2022-11-26 11:10 | PT.OTN ---
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) Pain in left knee (11/26/22) Muscle weakness (generalized) (11/26/22) Other abnormalities of gait and mobility (11/26/22) Repeated falls (11/26/22) Physical Therapy Treatment Note PT-OP-A Visit Information Start: 05/09/22 19:03 Freq: Status: Active Protocol: Document 11/26/22 08:54 LRN (Rec: 11/26/22 09:45 LRN [id number]) Out-Patient Physical Therapy Visit Information Visit Information Visit Type Treatment Note Visit Note 4 after PN Visit Start Time 08:54 Visit Stop Time 09:44 Total Visit Minutes 50 Visit Number Evaluation Information Evaluation Date 05/14/22 Precautions Precautions s/p RN SOCIAL WORK (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 PT-OP-B Current Condition Start: 05/09/22 19:03 Freq: Status: Active Protocol: Document 07/26/22 10:30 DCW (Rec: 07/26/22 11:10 DCW [id number]) Current Condition History of Current Condition Onset Date 03/04/22 Current Complaints Balance problem and weakness in LE's and low endurance History of Current Condition Surgery at for Ventriculoperitoneal (RN SOCIAL WORK) shunt 03/04/22. Overnight hospitalization, then home. Has been walking around the house a couple times a day. Used to walk from home (near high school) to [employer] 4 yrs ago. Pt used to take care of house and yardwork, but not able to yet. She is walking at home around the house, touching/holding onto things for balance. Pt is walking outside by herself with a single point cane. Daughter states prior to surgery she had a magnet shuffling- Parkingson's type gait, but not since surgery. She used to fall 3x/week, but since her surgery has fallen 3 times, but balance is much improved and speed of walking has improved since surgery. Her neurologist at [facility] and at recommended physical therapy. PCP started referral. CARO was nurse practitioner at ER and now is a nurse in ER (PACU). Works 3 -4x/weeks, therefore pt stays by self when CARO works. CARO is leaving State for reserve work 05/25-06/24; therefore the pt will be going to stay with her other daughter out of state. 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 Reports she does not do anything at the hair salon or the dentist's office that requires her to lay her head back far. Admits she has had CRM off and on from different ENTs, both when they were visiting [place] and locally. Prior Treatments and Tests None. Future Testing and Treatments Planned Dr. Kirk f/u visit @ . No future appts with PCP. Developmental History Developmental History Attended [facility] until end of February 2022 due to falls, then insurance changed. Was falling frequently prior to surgery and since surgery has fallen 3x. DA reports pt has pain in L back and L medial knee pain from previous falls (L knee pain from landing on the knee from slipping on leaves outside). Treatment Goals Patient/Caregiver Goals Pt goals per DA interpretation : - Better balance not LOB on stairs, and - Falling no more than (was 3x /week) once per month with use of assistive device as needed . - Squat (as her L knee pain allows) to reaching for low items without falling. - Join [employer] for exercise. - Walking around home without holding onto the jarrell. Prior Functional Status Baseline Function- ADL's Modified Independent Baseline Function- Mobility Modified Independent Baseline Function- Gait Walked with Hortencia Baseline Function- Other Fell 3-4x/week. Current Functional Impairments (Reported) Functional Limitations- ADL's Ambulates 15 stairs to get to bedroom using railing on both sides (except 20 ft no railing ). Has fallen down stairs ( holding her dog, who is now ). Walking around the house holding onto things Walkiing outside with SPC on concrete with a little incline ~ 1 blocks. Functional Limitations- Mobility/Gait Independent ADLs. Personal Factors Other Personal Factors That May Effect Pt [place] language is Romanian. Therapy/Recovery Daughter (CARO) is her disc ruler operator. Pt lives with CARO who works 8- 12 hour days on wire photo operator news and is alone when DA. Pt walks alone with SPC, no life alert. Pt has fallen down stairs backwards when using stairs with carrying objects in hands . PT-OP-C Subjective Start: 05/09/22 19:03 Freq: Status: Active Protocol: Document 11/26/22 08:54 LRN (Rec: 11/26/22 09:45 LRN [id number]) OP-PT Subjective Patient Comments Patient Comments DA states they had not have time to ex in gym. PT-OP-D Balance Start: 05/09/22 19:03 Freq: Status: Active Protocol: Document 10/28/22 09:06 SP (Rec: 10/28/22 09:49 SP [id number]) Balance Tests Joshi Balance Test Joshi Balance Test Score 49 Joshi Impairment Rating 1 to 19% Impaired (Score 45-55 ) Joshi Balance Assessment Total Score Joshi Impairment Rating 1 to 19% Impaired (Score 45-55 ) PT-OP-E Functional Tests Start: 05/09/22 19:03 Freq: Status: Active Protocol: Document 08/01/22 08:17 LRN (Rec: 08/01/22 09:03 LRN [id number]) Functional Tests 30 Second Sit to Stand Test Score 11 Comments Norm for 80-84 yo women is 9- 14x. Five Times Sit to Stand Test Score 19, 12 secs Comments Norm for 80-89 yo's is 14.8 secs. Fall risk if > or = 12 secs Timed Up and Go (TUG) Score 12 Comments No use of hands, from webbed chairl, slip ons. TUG Impairment Rating 20 to <40% Impaired (Score 12- 13) Other Gait Speed Name of Test Gait speed Score 20'/6 = 3.33 ft/sec Comment 2.62-3.94 ft/sec for community gait speed PT-OP-G Mobility & Gait Start: 05/09/22 19:03 Freq: Status: Active Protocol: Document 09/17/22 13:04 LRN (Rec: 09/17/22 13:52 LRN [id number]) OP Gait Assessment Gait Gait Assistance Required: Independent Able to Maintain Weight Bearing Status Yes During Gait Assistive Devices Assistive Device Straight Cane PT-OP-H Neuro Start: 05/09/22 19:03 Freq: Status: Active Protocol: Document 05/14/22 09:50 LRN (Rec: 05/14/22 12:37 LRN [id number]) Sensation Evaluation Gross Sensation Gross Sensation WNL PT-OP-M Strength Start: 05/09/22 19:03 Freq: Status: Active Protocol: Document 05/24/22 09:04 LRN (Rec: 05/24/22 09:49 LRN [id number]) Hip Strength Hip Manual Muscle Testing Right Flexion (L2) 3 Fair Abduction 3 Fair Adduction 5 Normal External Rotation 5 Normal Internal Rotation 3 Fair Left Flexion (L2) 3 Fair Abduction 3 Fair Adduction 3 Fair External Rotation 3 Fair Internal Rotation 3 Fair PT-OP-O Vestibular Start: 07/26/22 10:56 Freq: Status: Active Protocol: Document 10/15/22 13:02 DCW (Rec: 10/15/22 13:14 DCW [id number]) Vestibular Assessment Positional Testing Mariela-Hallpike Negative Left,Negative Right PT-OP-Q Treatments Start: 05/09/22 19:03 Freq: Status: Active Protocol: Document 11/26/22 08:54 LRN (Rec: 11/26/22 09:45 LRN [id number]) Cardio Equipment Recumbent Elliptical ([employer]) Duration (Minutes) 5 Resistance 2 Seat Position 0 L knee pain afterwards Other Back support in seat - extra minute for set up Therapeutic Exercises Sitting Exercises PRE Knee ext strengthening Sitting Exercise Name PRE knee ext strengthening Side bilateral Equipment Used 5#, 4#, 3# Reps/Minutes 10x each Comments Extra time needed for training . Standing Exercises Knee flex PRE strengthening Standing Exercise Name Knee flex strengthening Side bilateral Equipment Used 4#, 3#, 2#, 1# Reps/Minutes 10 x each Comments Extra time needed for training . Neuro Re-Education Treatment Balance Activities Tandem Balance Details Tandem stance Balance Surface Level Equipment Chair/corner wall Reps/Duration 5-10x each Comments DA providing SBA SLS reaching Details SLS then reaching fwd w/opp hand. Surface Level Equipment Chair/corner wall Reps/Duration 5x each Comments DA providing SBA Hip AB balance Details Hip AB balance Surface Level Equipment Chair Reps/Duration 10x each Comments DA providing SBA Hip Ext balance Details Hip Ext balance Surface Level Equipment Facing corner Reps/Duration 10x each Comments DA providing SBA Balance on heels/Toes Details Balance on heels/toes Surface Level Equipment Corner wall Reps/Duration 1x each Comments DA providing SBA Head and head/body turns Details Head & head/bodyturns Surface Level Equipment Corner wall Reps/Duration 6x each Comments DA providing SBA Standing balance Details SLS Surface Level Equipment Chair/corner wall Reps/Duration 5x each Comments DA providing SBA PT-OP-T Assessment and Plan Start: 05/09/22 19:03 Freq: Status: Active Protocol: Document 11/26/22 08:54 LRN (Rec: 11/26/22 09:45 LRN [id number]) Physical Therapy Assessment Goals Three Impairment Balance Impairment Initial Joshi Balance Score - 44 (20-39% impaired, score 34- 44) Initial: Pt falling 3x/week or 3x/month. Short Term Goal (STG) Pt will improve balance as noted with no LOB on stairs. 08/01/22: JOSHI score 47 (1-19% impaired, score 45-55). 11/19/22: Without railing, LOB to the R when descending stairs. No instability with ascending stairs. STG Duration 11/09/22 progressed Mcfp Goal (LTG) Improve balance per Joshi Balance score >44 (1-19% impaired, score 45-55), with pt falling no more than (was 3x/week) or no more than 1x/ month with use of assistive device. 08/01/22: JOSHI score 47 (1-19% impaired, score 45-55). 10/28/22: GOAL MET LTG Duration 12/24/22 (GOAL MET 10/28/22) Two Impairment Decreased LE Strength/ decreased endurance Impairment Initial 30 sec chair stand is 7x (norm for 80-84 yo women is 9-14 times) Short Term Goal (STG) Improve 30 sec Chair Stand test to 9x, with pt able to walking around her home without holding onto the jarrell . 08/01/22: 30 Sec Chair Stand test - 11 reps. Pt walking around her home sometimes reaching out. 10/28/22: MET goal: 10 reps in 30 sec, 2nd attempt 14 reps in 30 sec after discussed is a timed test for speed and safety descent. STG Duration 11/09/22 (10/28/22: GOAL MET) Entry Level Staff Accountant Goal (LTG) Pt will be able to join [employer] for an exercise program. 10/28/22: not started this yet. 11/07/22: Schedule of DA he it difficult to start ex program in gym. 11/19/22: DA taking mother to work gym 2x/week, started last week. Added resisted stair stepping for LE strengthening at PT, pt doing 30' at gym. LTG Duration 12/24/22 (11/19/22: MET GOAL) One Impairment Decreased function per ABC & DHI score Impairment ABC score 54.375 (40 <60% impaired, score 41-60) Dizziness Questionnaire 196 ( 100% impaired, score 100 or more) Short Term Goal (STG) Pt will be able to Squat (as her L knee pain allows) to reaching for low items without falling. 09/17/22: Pt able to semi-squat holding onto things at home. STG Duration 08/26/22 (09/17/22: MET GOAL). Entry Level Staff Accountant Goal (LTG) Improve function per ABC score >80 (1<20% impaired, score 81 -99). 09/17/22: ABC score 56.25. LTG Duration 12/24/22 slightly improved . Progress Towards Goals Progress Comments Progressed ex time for LE endurance/strengthening. Assessment Summary Assessment Pt walking at home for endurance strengthening. L knee pain after [employer]. With daughter (DA) as disc ruler operator, pt was able to perform corner balance ex's with one episode of LOB that helped pt and DA understand importance of doing balance ex's in corner. Physical Therapy Plan Frequency and Duration Frequency of Treatment 2x/Week Plan of Care Start Date 10/24/22 Plan of Care End Date 12/24/22 Next Visit Focus/Plan Next Note Type Discharge Summary Next Visit Plan DC. ABC score assessment. Review balance ex's and add HEP of propriceptive ex's to improve safety of descending. Check for need of LE strengthening ex's and core stability (PRE's as tolerated for anabelle knee strengthening) with caution due to history of L knee pain. Check for improved speed of gait. If time, try Shuttle Balance with tilt to R side to encourage pt lean to L in standing (descending stairs- SLS).
--- NOTE | 2022-12-10 09:04 | PT.OTN ---
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) Pain in left knee (12/10/22) Muscle weakness (generalized) (12/10/22) Other abnormalities of gait and mobility (12/10/22) Repeated falls (12/10/22) Physical Therapy Treatment Note PT-OP-A Visit Information Start: 05/09/22 19:03 Freq: Status: Active Protocol: Document 12/10/22 09:04 SP (Rec: 12/10/22 09:49 SP [id number]) Out-Patient Physical Therapy Visit Information Visit Information Visit Type Treatment Note Visit Note 5 after PN Daughter attends to assist interpretation and completed caregiver ed for carryover balance and activity. Visit Start Time 09:04 Visit Stop Time 09:45 Total Visit Minutes 41 Visit Number Number of CLAIMS SERVICE REPRESENTATIVE Visits 1 Evaluation Information Evaluation Date 05/14/22 Precautions Precautions s/p RADIO SALES ACCOUNT EXECUTIVE (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 PT-OP-B Current Condition Start: 05/09/22 19:03 Freq: Status: Active Protocol: Document 07/26/22 10:30 DCW (Rec: 07/26/22 11:10 DCW [id number]) Current Condition History of Current Condition Onset Date 03/04/22 Current Complaints Balance problem and weakness in LE's and low endurance History of Current Condition Surgery at for Ventriculoperitoneal (RADIO SALES ACCOUNT EXECUTIVE) shunt 03/04/22. Overnight hospitalization, then home. Has been walking around the house a couple times a day. Used to walk from home (near high school) to [employer] 4 yrs ago. Pt used to take care of house and yardwork, but not able to yet. She is walking at home around the house, touching/holding onto things for balance. Pt is walking outside by herself with a single point cane. Daughter states prior to surgery she had a magnet shuffling- Parkingson's type gait, but not since surgery. She used to fall 3x/week, but since her surgery has fallen 3 times, but balance is much improved and speed of walking has improved since surgery. Her neurologist at [facility] and at recommended physical therapy. PCP started referral. CARO was nurse practitioner at ER and now is a nurse in ER (PACU). Works 3 -4x/weeks, therefore pt stays by self when DA works. CARO is leaving State for reserve work 05/25-06/24; therefore the pt will be going to stay with her other daughter out of state. 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 Reports she does not do anything at the hair salon or the dentist's office that requires her to lay her head back far. Admits she has had CRM off and on from different ENTs, both when they were visiting [place] and locally. Prior Treatments and Tests None. Future Testing and Treatments Planned Dr. Kirk f/u visit @ . No future appts with PCP. Developmental History Developmental History Attended [facility] until end of February 2022 due to falls, then insurance changed. Was falling frequently prior to surgery and since surgery has fallen 3x. DA reports pt has pain in L back and L medial knee pain from previous falls (L knee pain from landing on the knee from slipping on leaves outside). Treatment Goals Patient/Caregiver Goals Pt goals per DA interpretation : - Better balance not LOB on stairs, and - Falling no more than (was 3x /week) once per month with use of assistive device as needed . - Squat (as her L knee pain allows) to reaching for low items without falling. - Join [employer] for exercise. - Walking around home without holding onto the jarrell. Prior Functional Status Baseline Function- ADL's Modified Independent Baseline Function- Mobility Modified Independent Baseline Function- Gait Walked with Hortencia Baseline Function- Other Fell 3-4x/week. Current Functional Impairments (Reported) Functional Limitations- ADL's Ambulates 15 stairs to get to bedroom using railing on both sides (except 20 ft no railing ). Has fallen down stairs ( holding her dog, who is now ). Walking around the house holding onto things Walkiing outside with SPC on concrete with a little incline ~ 1 blocks. Functional Limitations- Mobility/Gait Independent ADLs. Personal Factors Other Personal Factors That May Effect Pt [place] language is Hungarian. Therapy/Recovery Daughter (CARO) is her gaming commissioner. Pt lives with DA who works 8- 12 hour days on sales and operations trainee and is alone when DA. Pt walks alone with SPC, no life alert. Pt has fallen down stairs backwards when using stairs with carrying objects in hands . PT-OP-C Subjective Start: 05/09/22 19:03 Freq: Status: Active Protocol: Document 12/10/22 09:04 SP (Rec: 12/10/22 09:49 SP [id number]) OP-PT Subjective Patient Comments Patient Comments Pt reports occaional cues cane outside for safety when needed. Patient Questionnaires ABC- Activity Specific Balance Confidence Scale ABC Score 55 ABC Functional Impairment 40 to <60% Impaired (Score 41- 60) PT-OP-D Balance Start: 05/09/22 19:03 Freq: Status: Active Protocol: Document 12/10/22 09:04 SP (Rec: 12/13/22 08:03 SP [id number]) Walker Balance Assessment Total Score Walker Impairment Rating 1 to 19% Impaired (Score 45-55 ) PT-OP-E Functional Tests Start: 05/09/22 19:03 Freq: Status: Active Protocol: Document 12/10/22 09:04 SP (Rec: 12/10/22 09:49 SP [id number]) Functional Tests Other WALKER Name of Test 48/56 Comment loses balance with tandem, SLS , decreased reach 5 PT-OP-G Mobility & Gait Start: 05/09/22 19:03 Freq: Status: Active Protocol: Document 09/17/22 13:04 LRN (Rec: 09/17/22 13:52 LRN [id number]) OP Gait Assessment Gait Gait Assistance Required: Independent Able to Maintain Weight Bearing Status Yes During Gait Assistive Devices Assistive Device Straight Cane PT-OP-H Neuro Start: 05/09/22 19:03 Freq: Status: Active Protocol: Document 05/14/22 09:50 LRN (Rec: 05/14/22 12:37 LRN [id number]) Sensation Evaluation Gross Sensation Gross Sensation WNL PT-OP-M Strength Start: 05/09/22 19:03 Freq: Status: Active Protocol: Document 05/24/22 09:04 LRN (Rec: 05/24/22 09:49 LRN [id number]) Hip Strength Hip Manual Muscle Testing Right Flexion (L2) 3 Fair Abduction 3 Fair Adduction 5 Normal External Rotation 5 Normal Internal Rotation 3 Fair Left Flexion (L2) 3 Fair Abduction 3 Fair Adduction 3 Fair External Rotation 3 Fair Internal Rotation 3 Fair PT-OP-O Vestibular Start: 07/26/22 10:56 Freq: Status: Active Protocol: Document 10/15/22 13:02 DCW (Rec: 10/15/22 13:14 DCW [id number]) Vestibular Assessment Positional Testing Gay-Hallpike Negative Left,Negative Right PT-OP-Q Treatments Start: 05/09/22 19:03 Freq: Status: Active Protocol: Document 12/10/22 09:04 SP (Rec: 12/10/22 09:49 SP [id number]) Cardio Equipment Recumbent Elliptical ([employer]) Duration (Minutes) 5 Resistance 2>3 Seat Position 0 L knee pain afterwards Other reports knee feels better, 35- 40 RPMs Neuro Re-Education Treatment Balance Activities Tandem Balance Details Tandem stance Balance-HEP reviewed Surface Level Equipment Chair/corner wall Reps/Duration 5-10x each Comments DA providing SBA SLS reaching Details SLS then wt shift reaching fwd w/opp hand.-HEP reviewed Surface Level Equipment Chair/corner wall Reps/Duration 5x each Comments high heel lift (calf raises) reach OH, DA providing SBA Hip AB balance Details Hip AB balance-HEP reviewed Surface Level Equipment Chair Reps/Duration 10x each Comments DA providing SBA Hip Ext balance Details Hip Ext balance- HEP reviewed Surface Level Equipment Facing corner Reps/Duration 10x each Comments DA providing SBA WALKER Details feedback to GOAL 12/10 Comments 48/56, decreased by 1pt since 10/28/22 Self-Care/Home Management Treatment Education Other Education Time spent review balance HEP with good cuing from daughter to support postural corrections for increased stability. PT-OP-T Assessment and Plan Start: 05/09/22 19:03 Freq: Status: Active Protocol: Document 12/10/22 09:04 SP (Rec: 12/10/22 09:49 SP [id number]) Physical Therapy Assessment Goals Three Impairment Balance Impairment Initial Walker Balance Score - 44 (20-39% impaired, score 34- 44) Initial: Pt falling 3x/week or 3x/month. Short Term Goal (STG) Pt will improve balance as noted with no LOB on stairs. 08/01/22: WALKER score 47 (1-19% impaired, score 45-55). 11/19/22: Without railing, LOB to the R when descending stairs. No instability with ascending stairs. 12/10/22: decreased 48/56 (1-19 % impaired), 49/56 on 10/28/22 . Pt challenged SLS and set up tandem without UE support. STG Duration 11/09/22 updated 12/10/22 Manager [place] Goal (LTG) Improve balance per Walker Balance score >44 (1-19% impaired, score 45-55), with pt falling no more than (was 3x/week) or no more than 1x/ month with use of assistive device. 08/01/22: WALKER score 47 (1-19% impaired, score 45-55). 10/28/22: GOAL MET LTG Duration 12/24/22 (GOAL MET 10/28/22) Two Impairment Decreased LE Strength/ decreased endurance Impairment Initial 30 sec chair stand is 7x (norm for 80-84 yo women is 9-14 times) Short Term Goal (STG) Improve 30 sec Chair Stand test to 9x, with pt able to walking around her home without holding onto the jarrell . 08/01/22: 30 Sec Chair Stand test - 11 reps. Pt walking around her home sometimes reaching out. 10/28/22: MET goal: 10 reps in 30 sec, 2nd attempt 14 reps in 30 sec after discussed is a timed test for speed and safety descent. STG Duration 11/09/22 (10/28/22: GOAL MET) Manager [place] Goal (LTG) Pt will be able to join [employer] for an exercise program. 10/28/22: not started this yet. 11/07/22: Schedule of CARO cutler it difficult to start ex program in gym. 11/19/22: DA taking mother to work gym 2x/week, started last week. Added resisted stair stepping for LE strengthening at PT, pt doing 30' at gym. LTG Duration 12/24/22 (11/19/22: MET GOAL) One Impairment Decreased function per ABC & DHI score Impairment ABC score 54.375 (40 <60% impaired, score 41-60) Dizziness Questionnaire 196 ( 100% impaired, score 100 or more) Short Term Goal (STG) Pt will be able to Squat (as her L knee pain allows) to reaching for low items without falling. 09/17/22: Pt able to semi-squat holding onto things at home. STG Duration 2/13/23 (09/17/22: MET GOAL). Alf Goal (LTG) Improve function per ABC score >80 (1<20% impaired, score 81 -99). 09/17/22: ABC score 56.25. 12/10/22: ABC score 55 ( decreased by 1.25) (40-60% impaired) LTG Duration 12/24/22 slightly decline . Assessment Summary Assessment Pt slight decreased increase in scoring ABC by 1.25 and WALKER by 1 pt due to continues to be unsteady with SLS and tandem activities but doesn't tend to do. She only uses SPC if needed longer distance with family members with her. Her daughter assist and good cuing for more challenging balance HEP: semi/tandem to continue to progress at home. Pt and daughter pleased with progress made and feel ready to continue at home. Physical Therapy Plan Frequency and Duration Frequency of Treatment 2x/Week Plan of Care Start Date 10/24/22 Plan of Care End Date 12/24/22 Therapeutic Interventions Therapeutic Interventions Balance Training,Gait Training ,Home Exercise Program, Neuromuscular Re-education, Patient/Caregiver Education, Self-Care/Home Management, Therapeutic Activities, Therapeutic Exercises Modalities Cold Pack/Ice Massage Next Visit Focus/Plan Next Note Type Discharge Summary Next Visit Plan PT to complete DC Summary.
--- NOTE | 2022-12-13 17:32 | PT.OPDS ---
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) Pain in left knee (12/10/22) Muscle weakness (generalized) (12/10/22) Other abnormalities of gait and mobility (12/10/22) Repeated falls (12/10/22) Visit Care Team Role Provider Type Oli Victoria MD Attending Provider Physician Family Provider Primary Care Provider Referring Provider Specialty: Family Practice Address: [address] [place] [address], [facility] Email: [email or web address] Visit Number Visit Number Discharge Summary PT-OP-B Current Condition Start: 05/09/22 19:03 Freq: Status: Active Protocol: Document 07/26/22 10:30 DCW (Rec: 07/26/22 11:10 DCW [id number]) Current Condition History of Current Condition Onset Date 03/04/22 Current Complaints Balance problem and weakness in LE's and low endurance History of Current Condition Surgery at for 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 Overnight hospitalization, then home. Has been walking around the house a couple times a day. Used to walk from home (near high school) to [employer] 4 yrs ago. Pt used to take care of house and yardwork, but not able to yet. She is walking at home around the house, touching/holding onto things for balance. Pt is walking outside by herself with a single point cane. Daughter states prior to surgery she had a magnet shuffling- Parkingson's type gait, but not since surgery. She used to fall 3x/week, but since her surgery has fallen 3 times, but balance is much improved and speed of walking has improved since surgery. Her neurologist at [facility] and at recommended physical therapy. PCP started referral. DA was nurse practitioner at ER and now is a nurse in ER ([employer]ACU). Works 3 -4x/weeks, therefore pt stays by self when DA works. DA is leaving State for reserve work 05/25-06/24; therefore the pt will be going to stay with her other daughter out of state. 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 Reports she does not do anything at the hair salon or the dentist's office that requires her to lay her head back far. Admits she has had CRM off and on from different ENTs, both when they were visiting [place] and locally. Prior Treatments and Tests None. Future Testing and Treatments Planned Dr. Kirk f/u visit @ . No future appts with PCP. Developmental History Developmental History Attended [facility] until end of February 2022 due to falls, then insurance changed. Was falling frequently prior to surgery and since surgery has fallen 3x. DA reports pt has pain in L back and L medial knee pain from previous falls (L knee pain from landing on the knee from slipping on leaves outside). Treatment Goals Patient/Caregiver Goals Pt goals per DA interpretation : - Better balance not LOB on stairs, and - Falling no more than (was 3x /week) once per month with use of assistive device as needed . - Squat (as her L knee pain allows) to reaching for low items without falling. - Join [employer] for exercise. - Walking around home without holding onto the jarrell. Prior Functional Status Baseline Function- ADL's Modified Independent Baseline Function- Mobility Modified Independent Baseline Function- Gait Walked with Hortencia Baseline Function- Other Fell 3-4x/week. Current Functional Impairments (Reported) Functional Limitations- ADL's Ambulates 15 stairs to get to bedroom using railing on both sides (except 20 ft no railing ). Has fallen down stairs ( holding her dog, who is now ). Walking around the house holding onto things Walkiing outside with SPC on concrete with a little incline ~ 1 blocks. Functional Limitations- Mobility/Gait Independent ADLs. Personal Factors Other Personal Factors That May Effect Pt [place] is [place]. Therapy/Recovery Daughter (CARO) is her out patient therapist. Pt lives with DA who works 8- 12 hour days on recapper and is alone when DA. Pt walks alone with SPC, no life alert. Pt has fallen down stairs backwards when using stairs with carrying objects in hands . PT-OP-C Subjective Start: 05/09/22 19:03 Freq: Status: Active Protocol: Document 12/10/22 09:04 SP (Rec: 12/10/22 09:49 SP [id number]) OP-PT Subjective Patient Comments Patient Comments Pt reports occaional cues cane outside for safety when needed. Patient Questionnaires ABC- Activity Specific Balance Confidence Scale ABC Score 55 ABC Functional Impairment 40 to <60% Impaired (Score 41- 60) PT-OP-D Balance Start: 05/09/22 19:03 Freq: Status: Active Protocol: Document 12/10/22 09:04 SP (Rec: 12/13/22 08:03 SP [id number]) Walker Balance Assessment Total Score Walker Impairment Rating 1 to 19% Impaired (Score 45-55 ) PT-OP-E Functional Tests Start: 05/09/22 19:03 Freq: Status: Active Protocol: Document 12/10/22 09:04 SP (Rec: 12/10/22 09:49 SP [id number]) Functional Tests Other WALKER Name of Test 48/56 Comment loses balance with tandem, SLS , decreased reach 5 PT-OP-G Mobility & Gait Start: 05/09/22 19:03 Freq: Status: Active Protocol: Document 09/17/22 13:04 LRN (Rec: 09/17/22 13:52 LRN [id number]) OP Gait Assessment Gait Gait Assistance Required: Independent Able to Maintain Weight Bearing Status Yes During Gait Assistive Devices Assistive Device Straight Cane PT-OP-H Neuro Start: 05/09/22 19:03 Freq: Status: Active Protocol: Document 05/14/22 09:50 LRN (Rec: 05/14/22 12:37 LRN [id number]) Sensation Evaluation Gross Sensation Gross Sensation WNL PT-OP-M Strength Start: 05/09/22 19:03 Freq: Status: Active Protocol: Document 05/24/22 09:04 LRN (Rec: 05/24/22 09:49 LRN [id number]) Hip Strength Hip Manual Muscle Testing Right Flexion (L2) 3 Fair Abduction 3 Fair Adduction 5 Normal External Rotation 5 Normal Internal Rotation 3 Fair Left Flexion (L2) 3 Fair Abduction 3 Fair Adduction 3 Fair External Rotation 3 Fair Internal Rotation 3 Fair PT-OP-O Vestibular Start: 07/26/22 10:56 Freq: Status: Active Protocol: Document 10/15/22 13:02 DCW (Rec: 10/15/22 13:14 DCW [id number]) Vestibular Assessment Positional Testing Muncy-Hallpike Negative Left,Negative Right PT-OP-T Assessment and Plan Start: 05/09/22 19:03 Freq: Status: Active Protocol: Document 12/13/22 17:27 LRN (Rec: 12/13/22 17:32 LRN [id number]) Physical Therapy Assessment Goals Five Impairment Positive Muncy-Hallpike test bilaterally Short Term Goal (STG) Pt to test negative with all positional testing bilaterally STG Duration Met Four Impairment Decreased safety with gait Impairment 5XSTS in 12 secs (fall risk >= 12 secs, norm for 80-89 yo's is 14.8 secs) TUG - assessed is 19 & 15 secs (avg for 80-89 yo women is 17.2 secs) Gait speed - assessed on is 2.5 ft/sec. Short Term Goal (STG) Improve 5XSTS score or TUG score <14 secs, indicating decreased risk of falls. 05/17/22: TUG (2 trials) 19 & 15 secs. 08/01/22: TUG 12 secs. STG Duration 08/26/22 (08/01/22: MET GOAL) Penitentiary Goal (LTG) Improve gait speed for safe community ambulation 2.62-3.94 ft/sec (safe to cross street gait speed of >3.9 ft/sec). 05/17/22: Gt speed is 2.5 ft/ sec. (: Gt speed 20'/8 = 2. 5 ft/sec) 08/01/22: Gt speed 20'/6 = 3. 33 ft/sec. LTG Duration 10/24/22 (08/01/22: MET GOAL) Three Impairment Balance Impairment Initial Walkre Balance Score - 44 (20-39% impaired, score 34- 44) Initial: Pt falling 3x/week or 3x/month. Short Term Goal (STG) Pt will improve balance as noted with no LOB on stairs. 08/01/22: WALKER score 47 (1-19% impaired, score 45-55). 11/19/22: Without railing, LOB to the R when descending stairs. No instability with ascending stairs. 12/10/22: decreased 48/56 (1-19 % impaired), 49/56 on 10/28/22 . Pt challenged SLS and set up tandem without UE support. STG Duration 11/09/22 (12/13/22: NOT MET GOAL, updated 12/10/22) Loan Supervisor Goal (LTG) Improve balance per Walker Balance score >44 (1-19% impaired, score 45-55), with pt falling no more than (was 3x/week) or no more than 1x/ month with use of assistive device. 08/01/22: WALKER score 47 (1-19% impaired, score 45-55). 10/28/22: GOAL MET LTG Duration 12/24/22 (GOAL MET 10/28/22) Two Impairment Decreased LE Strength/ decreased endurance Impairment Initial 30 sec chair stand is 7x (norm for 80-84 yo women is 9-14 times) Short Term Goal (STG) Improve 30 sec Chair Stand test to 9x, with pt able to walking around her home without holding onto the jarrell . 08/01/22: 30 Sec Chair Stand test - 11 reps. Pt walking around her home sometimes reaching out. 10/28/22: MET goal: 10 reps in 30 sec, 2nd attempt 14 reps in 30 sec after discussed is a timed test for speed and safety descent. STG Duration 11/09/22 (10/28/22: GOAL MET) Penitentiary Goal (LTG) Pt will be able to join [employer] for an exercise program. 10/28/22: not started this yet. 11/07/22: Schedule of CARO cutler it difficult to start ex program in gym. 11/19/22: DA taking mother to work gym 2x/week, started last week. Added resisted stair stepping for LE strengthening at PT, pt doing 30' at gym. LTG Duration 12/24/22 (11/19/22: MET GOAL) One Impairment Decreased function per ABC & DHI score Impairment ABC score 54.375 (40 <60% impaired, score 41-60) Dizziness Questionnaire 196 ( 100% impaired, score 100 or more) Short Term Goal (STG) Pt will be able to Squat (as her L knee pain allows) to reaching for low items without falling. 09/17/22: Pt able to semi-squat holding onto things at home. STG Duration 08/26/22 (09/17/22: MET GOAL). Penitentiary Goal (LTG) Improve function per ABC score >80 (1<20% impaired, score 81 -99). 09/17/22: ABC score 56.25. 12/10/22: ABC score 55 ( decreased by 1.25) (40-60% impaired) LTG Duration 12/24/22 (12/13/22: NOT MET GOAL, slightly decline 12/10/22 ) Assessment Summary Assessment Pt last seen 12/10/22 and had reported pleased with progress made and feel ready to continue at home. Last visit reported: Pt slight decreased increase in scoring ABC by 1.25 and WALKER by 1 pt due to continues to be unsteady with SLS and tandem activities but doesn't tend to do. She only uses SPC if needed longer distance with family members with her. Her daughter assist and good cuing for more challenging balance HEP: semi/tandem to continue to progress at home. Physical Therapy Plan Discharge Physical Therapy Discharge Reasons Patient Request Discharge Comments Most goals were met. Pt and daughter to continue working on balance and endurance on her HEP. Thank you for your referral.
== END 2022-12-17 12:31 | disposition home or self-care (01) ==
LOC: PHYS 09:00
PROVIDERS: Family Provider Family Medicine; PCP Family Medicine; Referring Provider Family Medicine; Visit Provider Family Medicine
DX: R29.6 Repeated falls (principal); R26.89 Other abnormalities of gait and mobility; G93.89 Other specified disorders of brain; M62.81 Muscle weakness (generalized); M25.562 Pain in left knee
CPT/HCPCS: 95992; 97110; 97112; 97116; 97140; 97162; 97535

== ENCOUNTER → 2023-11-25 12:51 | Outpatient (CLI) | payer MEDICARE, MEDICAID, SELFPAY ==
--- NOTE | 2023-11-25 12:54 | DI.RAD.S_ITS ---
PROCEDURE: XR DEXA AXIAL SKELETON INDICATIONS: Osteoporosis COMPARISON: Merged With [facility], , XR DEXA AXIAL SKELETON, 07/17/2020, 9:54. FINDINGS: Lumbar Spine: Bone mineral density 0.751 g/cm2, T score -2.7, osteoporosis. Left Hip: Bone mineral density 0.752 g/cm2, T score -1.6, osteopenia. Left Femoral Neck: Bone mineral density 0.562 g/cm2, T score -2.6, osteoporosis. Right Hip: Bone mineral density 0.707 g/cm2, T score -1.9, osteopenia. Right Femoral Neck: Bone mineral density 0.581 g/cm2, T score -2.4, osteopenia. (T score greater or equal to -1.0 to: NORMAL) (T score from -1.1 to -2.4: OSTEOPENIA) (T score less than or equal to -2.5: OSTEOPOROSIS) IMPRESSION: 1. Based on WHO criteria, the patient has osteoporosis. 2. Because of this similarity of scanning types or analysis methods, statistical significance of bone mineral density change between scans cannot be assessed. Follow-up guidelines as follows: Osteoporosis: Consider a repeat DEXA and Vertebral Fracture Assessment (VFA) exam in 2 years or sooner if medically necessary, to reassess this patient's status. Osteopenia: Consider a repeat DEXA in 2-3 years to reassess this patient's status, or if there is a new clinical indication. Normal: Consider a repeat DEXA in 5 years or sooner, or if there is a new clinical indication. Dictated by: Lorena Russell M.D. on 11/25/2023 at 16:51 Approved by: Lorena Russell M.D. on 11/25/2023 at 16:56
== END ==
LOC: RAD 12:53
PROVIDERS: Family Provider Family Medicine; PCP Family Medicine; Referring Provider Family Medicine; Visit Provider Family Medicine
DX: M81.0 Age-related osteoporosis without current pathological fracture (principal)
CPT/HCPCS: 77080

== ENCOUNTER → 2023-12-02 11:05 | Outpatient (CLI) | payer MEDICARE, MEDICAID, SELFPAY ==
[2023-12-02 12:44] LABS: Add Manual Diff / Slide Review NO; Basophils Absolute Auto 0 /uL (0-100); Basophils Percent Auto 0.5 % (0-2); Eosinophils Absolute Auto 100 /uL (0-450); Eosinophils Percent Auto 1.4 % (2-4); Hematocrit 37.5 % (36-46); Hemoglobin 12.7 g/dL (12.0-16.0); Lymphocytes Absolute Auto 1400 /uL (1100-4500); Lymphocytes Percent Auto 31.2 % (25-40); Mean Corpuscular HGB Conc 33.7 % (30-36); Mean Corpuscular Hemoglobin 30.8 PG (26-34); Mean Corpuscular Volume 91.4 fL (80-100); Monocytes Absolute Auto 300 /uL (0-900); Monocytes Percent Auto 7.6 % (3-14); Neutrophils Absolute Auto 2600 /uL (1500-7000); Neutrophils Percent Auto 59.3 % (50-75); Platelet Count 294 X10^3/uL (150-400); Red Blood Cell Count 4.11 X10^6/uL (4.0-5.2); Red Cell Distribution Width 13.6 % (11.6-14.8); White Blood Cell Count 4.4 X10^3/uL (4.5-11.0)
[2023-12-02 13:16] LABS: TSH w/ Reflex to FT4 1.06 uIU/mL (0.47-4.68)
[2023-12-02 13:22] LABS: Alanine Aminotransferase 36 IU/L (<35); Albumin 4.5 g/dL (3.5-5.0); Albumin Globulin Ratio 1.8 (1.0-2.8); Alkaline Phosphatase 61 U/L (38-126); Aspartate Aminotransferase 34 IU/L (14-36); BUN Creatinine Ratio 23.8 (6-22); Bilirubin Total 0.5 mg/dL (0.2-1.3); Blood Urea Nitrogen 15 mg/dL (7-17); Calcium 8.7 mg/dL (8.4-10.2); Carbon Dioxide 29 mmol/L (22-32); Chloride 105 mmol/L (98-107); Cholesterol 200 mg/dL (140-199); Estimated Glomerular Filt Rate > 60 mL/min (>60); Globulin 2.5 g/dL (1.7-4.1); Glucose 125 mg/dL (80-110); HDL Cholesterol 43 mg/dL (40-60); HEMOLYSIS < 15 (0-50); LDL Cholesterol Calculated 113 mg/dL (<100); Potassium 4.7 mmol/L (3.4-5.1); Sodium 140 mmol/L (137-145); Triglycerides 218 mg/dL (35-150)
[2023-12-02 13:23] LABS: Hemoglobin A1C% w Est Avg Glu 6.2 % (4.0-6.0)
[2023-12-02 14:38] LABS: Creatinine Urine Random 49.13 mg/dL
[2023-12-02 14:42] LABS: Microalbumin Urine Random 2.2 mg/dL (0-1.6)
[2023-12-03 05:03] LABS: Apolipoprotein B 114 mg/dL (<90)
== END ==
LOC: LAB 11:06
PROVIDERS: Family Provider Family Medicine; PCP Family Medicine; Referring Provider Family Medicine; Visit Provider Family Medicine
DX: Z00.00 Encounter for general adult medical examination without abnormal findings (principal); R26.89 Other abnormalities of gait and mobility; R73.9 Hyperglycemia, unspecified; E78.5 Hyperlipidemia, unspecified; M85.80 Other specified disorders of bone density and structure, unspecified site
CPT/HCPCS: 36415; 80053; 80061; 82043; 82172; 82570; 83036; 84443; 85025

== ENCOUNTER 2024-04-02 15:46 | Emergency (ER) | payer MEDICARE, MEDICAID, SELFPAY ==
[2024-04-02 16:08] VITALS: BP 178/76; PULSE 84; RESP 18; TEMP 37.4; O2SAT 97; BMI 26.9
--- NOTE | 2024-04-02 16:12 | DI.RAD.S_ITS ---
PROCEDURE: XR CHEST 1V INDICATIONS: cough, wheeze TECHNIQUE: One view of the chest was acquired. COMPARISON: None. FINDINGS: Jmbn-ma-foucxqru diffuse bilateral peribronchial thickening with patchy lower lobe opacities more than expected for expiratory result and subsegmental atelectasis and bronchitis, bronchopneumonia, viral infection, asthma or other process should be considered. Mildly prominent kadeem, mildly prominent pulmonary vessels and/or hilar lymph nodes. Moderate calcifications of the aortic arch. Moderate degenerate changes of the thoracic spine and shoulders. Ventriculoperitoneal shunt catheter extends along the right hemithorax into the abdomen cross the midline toward the left off the inferior margin of the image. No pneumothorax, no pleural effusion, no lobar consolidation. Cardiopericardial silhouette within normal limits in size. IMPRESSION: Fetk-ij-afnewybf diffuse bilateral peribronchial thickening with patchy lower lobe opacities. Mildly prominent kadeem, mildly prominent pulmonary vessels and/or hilar lymph nodes. Follow-up suggested. If indicated CT could be performed. Dictated by: Jeronimo Kunz M.D. on 04/02/2024 at 16:55 Approved by: Jeronimo Kunz M.D. on 04/02/2024 at 16:59
--- NOTE | 2024-04-02 16:47 | ED.URI ---
HPI - URI/Sore Throat <Amberly Horne PA-C - Last Filed: 04/02/24 17:57> General Chief Complaint: Upper Respiratory Symptoms Stated Complaint: Productive cough, wheezing Time Seen by Provider: 04/02/24 16:46 Source: patient and family Mode of arrival: Ambulatory History of Present Illness HPI Narrative: Patient is a very pleasant 84-year-old female that presents to the emergency department with her daughter. Recent travel to [place], multiple interactions with people of the head cough, cold, congestion. Who presents now with cough, cold, congestion, wheezing, productive cough. He has been feeling under the weather. No fever. Continues to eat, drink and have normal bowel activity. Using her albuterol inhaler. Using kugc-aex-inmwhdu supportive therapy with some help of her symptoms. Daughter has been giving her Mucinex. Daughter just continuing to be mildly concerned due to the continued cough and productive cough. Brought her in to be evaluated. Recent COVID booster, recent influenza shot. Recent sick contacts, recent travel, no recent antibiotics. Related Data Previous Rx's Medication Instructions Recorded lidocaine 5 % topical patch 2 patch topical DAILY #30 ea 11/10/23 sertraline 50 mg tablet (Zoloft) 50 mg PO DAILY #90 tabs 11/10/23 losartan 25 mg tablet 25 mg PO DAILY #90 tabs 12/12/23 albuterol sulfate 90 mcg/actuation 2 puff inhalation QID PRN 04/02/24 aerosol inhaler (Ventolin HFA) shortness of breath or wheezing #6.7 grams azithromycin 250 mg tablet See Rx Instructions PO .COMPLEX #6 04/02/24 (Zithromax Z-Kayode) tabs Allergies Allergy/AdvReac Type Severity Reaction Status Date / Time Penicillin Allergy Unknown HIVES,RASH Uncoded 04/02/24 16:11 Review of Systems <Amberly Horne PA-C - Last Filed: 04/02/24 17:57> Review of Systems Narrative: Negative except as above Respiratory Comments: Cough, cold, congestion, productive phlegm. Integumentary/Breasts Comments: Sweaty no fever Patient History <Amberly Horne PA-C - Last Filed: 04/02/24 17:57> Medical History Normal pressure hydrocephalus Excessive daytime sleepiness Snoring Cerebral ventriculomegaly Imbalance Falls frequently Hyperlipidemia Hyperglycemia Vertigo (~2010) Leg pain (~1979) Hearing loss (~2004) Helicobacter pylori (H. pylori) (~2016) Osteopenia Osteoarthritis of lumbar spine (~2004) Chronic GERD (~1999) Surgical History Anesthesia History of cataract removal with insertion of prosthetic lens (~01/2005) Family History Father No problems noted. Mother No problems noted. Daughter Diabetes mellitus Hypertension Social History Smoking Status: Never smoker Smoking Status: Never smoker alcohol intake frequency: a few times a week Substance Use Type: does not use Exam <Amberly Horne PA-C - Last Filed: 04/02/24 17:57> Initial Vital Signs Initial Vital Signs: Vital Signs Temperature 99.3 F 04/02/24 16:08 Pulse Rate 84 04/02/24 16:08 Respiratory Rate 18 04/02/24 16:08 Blood Pressure 178/76 H 04/02/24 16:08 Pulse Oximetry 97 04/02/24 16:08 Oxygen Delivery Method Room Air 04/02/24 16:08 Reviewed Const General: cooperative, healthy appearing, comfortable, well developed, well groomed, No acute distress and No in distress Nutritional Appearance: average body habitus Orientation: Orientation [facility] Head: normal to inspection and normocephalic Nose: external nose normal and nares normal Eyes General: Yes appearance normal, both eyes and all related structures Pupils: PERRL EOM: EOM intact bilaterally Resp Effort & Inspection: normal respiratory effort, able to speak in complete sentences, cough, not labored, no respiratory distress and no stridor Auscultation: no bronchovesicular breath sounds, crackles (Throughout) bilaterally, lung sounds not diminished, no rales, no rhonchi and no wheezes Cardio Rate: regular rate Rhythm: regular rhythm Heart Sounds: S1 normal and S2 normal Skin Other: Warm pink and dry Neuro General: patient alert, patient awake, patient oriented x3, oriented and gait normal Cognition: normal cognition Gait: normal gait and other (Walks with a cane) Extrem Other: Patient walks with a cane steady gait Psych Appearance: grossly normal and well kempt Speech and Movement: speech and movement normal Mood: congruent mood Affect: normal affect Attitude: cooperative Thought Process: normal Thought Content: normal Judgment: judgment good <Deangelo Rascon DO - Last Filed: 04/02/24 18:14> Initial Vital Signs Initial Vital Signs: Vital Signs Temperature 99.3 F 04/02/24 16:08 Pulse Rate 84 04/02/24 16:08 Respiratory Rate 18 04/02/24 16:08 Blood Pressure 178/76 H 04/02/24 16:08 Pulse Oximetry 97 04/02/24 16:08 Oxygen Delivery Method Room Air 04/02/24 16:08 Course <Amberly Horne PA-C - Last Filed: 04/02/24 17:57> Orders Ordered: ED Orders 04/02/24 16:12 Chest [XR chest 1V] Stat Vital Signs Vital signs: Vital Signs - 8 hr 04/02/24 16:08 04/02/24 18:07 Temperature 99.3 F 98.1 F Pulse Rate 84 81 Respiratory Rate 18 16 Blood Pressure 178/76 H 147/67 H Pulse Oximetry 97 97 Oxygen Delivery Method Room Air Room Air Review <DO Matthias Lares Last Filed: 04/02/24 18:14> Orders Ordered: ED Orders 04/02/24 16:12 Chest [XR chest 1V] Stat Vital Signs Vital signs: Vital Signs - 8 hr 04/02/24 16:08 04/02/24 18:07 Temperature 99.3 F 98.1 F Pulse Rate 84 81 Respiratory Rate 18 16 Blood Pressure 178/76 H 147/67 H Pulse Oximetry 97 97 Oxygen Delivery Method Room Air Room Air MDM - URI/Sore Throat <CHAR Burdick Last Filed: 04/02/24 17:57> Imaging Data Chest x-ray: Radiologist's Impression: [address] [address] XRay Report Signed Patient: Katie Harden MR#: [id number] : 1940 Acct:[id number] Age/Sex: 84 / F Date of Service: 04/02/24 Loc: ED Accession Number: [id number] Procedure: XR chest 1V Ordering Provider: Deangelo Rascon D.O. PROCEDURE: XR CHEST 1V INDICATIONS: cough, wheeze TECHNIQUE: One view of the chest was acquired. COMPARISON: None. FINDINGS: Hybl-tl-hrmloicj diffuse bilateral peribronchial thickening with patchy lower lobe opacities more than expected for expiratory result and subsegmental atelectasis and bronchitis, bronchopneumonia, viral infection, asthma or other process should be considered. Mildly prominent kadeem, mildly prominent pulmonary vessels and/or hilar lymph nodes. Moderate calcifications of the aortic arch. Moderate degenerate changes of the thoracic spine and shoulders. Ventriculoperitoneal shunt catheter extends along the right hemithorax into the abdomen cross the midline toward the left off the inferior margin of the image. No pneumothorax, no pleural effusion, no lobar consolidation. Cardiopericardial silhouette within normal limits in size. IMPRESSION: Pase-uc-jkqfeivx diffuse bilateral peribronchial thickening with patchy lower lobe opacities. Mildly prominent kadeem, mildly prominent pulmonary vessels and/or hilar lymph nodes. Follow-up suggested. If indicated CT could be performed. Dictated by: Jeronimo Kunz M.D. on 04/02/2024 at 16:55 Approved by: Jeronimo Kunz M.D. on 04/02/2024 at 16:59 MDM Narrative Medical decision making narrative: Pleasant 84-year-old female recent travel to [place] surrounded by multiple people who have cough, cold, congestion. Brought into the emergency room department by her daughter with cough, cold, congestion, productive phlegmy cough with wheezing. Who has not improving with fzas-eap-dhqzkdw supportive therapy. Needing to use her albuterol haler doing to wheezing, daughter concerned due to chest congestion, productive cough, and sounding wheezy. No fevers at home. Continues to eat and drink normally. Using hssg-uyt-rvvfuhh supportive therapy with Mucinex with some help of her symptoms. Recent COVID booster as well as recent flu shot. Chest x-ray shows bilateral pneumonia, in the lower lobes Patient's vital signs are stable here patient is not tachypneic, she is not hypoxic, low-grade fever at 99.7. Patient treated with antibiotics Inhaler as prescribed Spoke with the daughter low threshold to return back to the emergency room department for any type of symptoms or problems. Encouraged close follow-up with her primary care doctor Txcj-xiw-hbnfiin supportive therapy. Differential: Viral infection, COVID, influenza, RSV, pneumonia. Discharge Plan Departure Patient Disposition: Home Clinical Impression: Pneumonia Qualifiers: Pneumonia type: due to unspecified organism Laterality: bilateral Lung location: lower lobe of lung Qualified Code(s): J18.9 - Pneumonia, unspecified organism Instructions: DI for Atypical Pneumonia Prescriptions: New azithromycin [Zithromax Z-Kayode] 250 mg tablet See Rx Instructions .ROUTE .COMPLEX Qty: 6 0RF Rx Instructions: For 250 mg dose pack: take 500 mg today (day 1), then 250 mg for 4 days (days 2-5) albuterol sulfate [Ventolin HFA] 90 mcg/actuation HFA aerosol inhaler 2 puff inhalation QID PRN (Reason: shortness of breath or wheezing) Qty: 6.7 0RF No Action losartan 25 mg tablet 25 mg PO DAILY Qty: 90 3RF lidocaine 5 % adhesive patch,medicated 2 patch topical DAILY Qty: 30 1RF Rx Instructions: leave on most painful area for up to 12 hrs sertraline [Zoloft] 50 mg tablet 50 mg PO DAILY Qty: 90 3RF Referrals: Oli Victoria MD [Primary Care Provider] - Stand Alone Forms: Patient Portal/API ED Sign-out <Deangelo Rascon, DO - Last Filed: 04/02/24 18:14> Cosign ED Attending Cosignature Attestation: Dr Rascon Co-Sign Statement: I was available for consultation during this patient's emergency department visit. This chart is signed by myself for administrative purposes only. I did not have direct contact with this patient during this visit. They were seen independently by the APC.
--- NOTE | 2024-04-02 18:03 | PC.NURSE ---
Pt daughter reports mother has been coughing yellow sputum and noticed wheezing at home. Respirations regular. No obvious distress noted. Pt daughter states she has not checked her temp at home but her O2 level has maintained above 94% RA.
[2024-04-02 18:07] VITALS: BP 147/67; PULSE 81; RESP 16; TEMP 36.7; O2SAT 97
== END 2024-04-02 18:07 | disposition home or self-care (01) ==
PROVIDERS: Emergency Provider Physician Assistant; Family Provider Family Medicine; PCP Family Medicine
DX: J18.9 Pneumonia, unspecified organism (principal)
CPT/HCPCS: 71045; 99281; 99283

== ENCOUNTER → 2024-05-06 14:20 | Outpatient (CLI) | payer MEDICARE, MEDICAID, SELFPAY ==
--- NOTE | 2024-05-06 14:22 | DI.RAD.S_ITS ---
PROCEDURE: XR CHEST 2V INDICATIONS: pneumonia follow up TECHNIQUE: 2 views of the chest were acquired. COMPARISON: Merged With [facility], CR, XR CHEST 1V, 04/02/2024, 16:19. FINDINGS: Surgical changes and devices: BAKER HEAD shunt catheter is noted. Lungs and pleura: Lungs are clear. No pleural effusions or pneumothorax. Mediastinum: Mediastinal contours are normal. Heart size is normal. Bones and chest wall: No suspicious bony abnormalities. Soft tissues appear unremarkable. IMPRESSION: No acute cardiopulmonary abnormality is seen. Dictated by: Rik Adames M.D. on 05/06/2024 at 16:08 Approved by: Rik Adames M.D. on 05/06/2024 at 16:08
== END ==
PROVIDERS: Family Provider Family Medicine; PCP Family Medicine; Referring Provider Family Medicine; Visit Provider Family Medicine
DX: J18.9 Pneumonia, unspecified organism (principal); G91.2 (Idiopathic) normal pressure hydrocephalus; R26.89 Other abnormalities of gait and mobility
CPT/HCPCS: 71046

== ENCOUNTER → 2024-09-21 16:21 | Outpatient (CLI) | payer MEDICARE, MEDICAID, SELFPAY ==
--- NOTE | 2024-09-21 16:22 | DI.RAD.S_ITS ---
PROCEDURE: XR HIP W PEL IF DONE LT 2V INDICATIONS: fall 2 weeks ago, r/o compression fx TECHNIQUE: AP pelvis and frogleg left hip were acquired. COMPARISON: None. FINDINGS: Bones: There are no fractures or other osseous abnormalities. SI and hip joints: Moderate left and mild right hip degeneration noted. There is mild degeneration of the SI joints. Soft tissues: The distal portion of the [employer] shunt catheter appears to be intact and coiled in the pelvis IMPRESSION: Degeneration. No fracture or posttraumatic change Dictated by: Joseph Jay M.D. on 09/22/2024 at 11:15 Approved by: Joseph Jay M.D. on 09/22/2024 at 11:16
--- NOTE | 2024-09-21 16:22 | DI.RAD.S_ITS ---
PROCEDURE: XR LUMBAR SPINE 2-3V INDICATIONS: fall 2 weeks ago, r/o compression fx TECHNIQUE: 3 views of the lumbar spine were acquired. COMPARISON: None. FINDINGS: Lumbar spine curvature and alignment: Grade 1 L4-5 spondylolisthesis due to degenerate facet disease noted. No posttraumatic subluxation. Bones: Minimal chronic wedging of the T12 and L1 vertebral wide with endplate irregularities compatible with chronic degeneration/Scheuermann's disease. No acute fractures. Disc spaces: Normal in height without significant degeneration. Intervertebral foramen: Grossly normal in width. Soft tissues: No soft tissue swelling, calcification or mass. IMPRESSION: No acute fracture. Chronic findings as described Dictated by: Joseph Jay M.D. on 09/22/2024 at 11:17 Approved by: Joseph Jay M.D. on 09/22/2024 at 11:18
== END ==
PROVIDERS: Family Provider Family Medicine; PCP Family Medicine; Referring Provider Physician Assistant; Visit Provider Physician Assistant
DX: M43.16 Spondylolisthesis, lumbar region (principal); M25.559 Pain in unspecified hip; M54.50 Low back pain, unspecified; Z98.2 Presence of cerebrospinal fluid drainage device
CPT/HCPCS: 72100; 73502

== ENCOUNTER → 2025-01-06 14:48 | Outpatient (CLI) | payer MEDICARE, MEDICAID, SELFPAY ==
--- NOTE | 2025-01-06 14:50 | DI.RAD.S_ITS ---
PROCEDURE: XR CHEST 2V INDICATIONS: cough TECHNIQUE: 2 views of the chest were acquired. COMPARISON: [facility], CR, XR LUMBAR SPINE 2-3V, 09/21/2024, 16:20. [facility], CR, XR CHEST 2V, 05/06/2024, 14:23. FINDINGS: Surgical changes and devices: Partially visualized tubing extending from the right neck along the thorax and the left upper abdominal space consistent with ventriculoperitoneal shunt. Lungs and pleura: Lungs are clear. No pleural effusions or pneumothorax. Mediastinum: Mediastinal contours are normal. Heart size is normal. Bones and chest wall: Interval worsening of the compression deformity at L1, now with approximately 50% height loss. No suspicious lytic or blastic osseous abnormalities. Moderate bilateral shoulder osteoarthritis. Soft tissues appear unremarkable. IMPRESSION: No acute cardiopulmonary abnormality is seen. Dictated by: Scooby Lam M.D. on 01/06/2025 at 15:15 Approved by: Scooby Lam M.D. on 01/06/2025 at 15:17
== END ==
PROVIDERS: Family Provider Family Medicine; PCP Family Medicine; Referring Provider Family Medicine; Visit Provider Family Medicine
DX: J06.9 Acute upper respiratory infection, unspecified (principal); R05.9 Cough, unspecified; M19.012 Primary osteoarthritis, left shoulder; M19.011 Primary osteoarthritis, right shoulder
CPT/HCPCS: 71046

== ENCOUNTER → 2025-05-04 10:20 | Outpatient (CLI) | payer MEDICARE, MEDICAID, SELFPAY ==
[2025-05-04 10:56] LABS: Add Manual Diff / Slide Review NO; Hematocrit 37.0 % (36-46); Hemoglobin 12.6 g/dL (12.0-16.0); Lymphocytes Absolute Auto 1300 /uL (1100-4500); Mean Corpuscular HGB Conc 34.0 % (30-36); Mean Corpuscular Hemoglobin 31.2 PG (26-34); Mean Corpuscular Volume 91.7 fL (80-100); Platelet Count 305 X10^3/uL (150-400)
[2025-05-04 11:05] LABS: Hemoglobin A1C% w Est Avg Glu 6.3 % (4.0-6.0)
[2025-05-04 11:27] LABS: Alanine Aminotransferase 12 IU/L (<35); Albumin 4.8 g/dL (3.5-5.0); Albumin Globulin Ratio 1.8 (1.0-2.8); Alkaline Phosphatase 58 U/L (38-126); Blood Urea Nitrogen 13 mg/dL (7-17); Calcium 9.3 mg/dL (8.4-10.2); Carbon Dioxide 27 mmol/L (22-32); Chloride 105 mmol/L (98-107); Cholesterol 226 mg/dL (140-199); Estimated Glomerular Filt Rate > 60 mL/min (>60); Globulin 2.6 g/dL (1.7-4.1); Glucose 127 mg/dL (70-99); HDL Cholesterol 50 mg/dL (40-60); HEMOLYSIS < 15 (0-50); Potassium 4.5 mmol/L (3.4-5.1); Sodium 142 mmol/L (137-145); Total Protein 7.4 g/dL (6.3-8.2); Triglycerides 227 mg/dL (35-150)
[2025-05-04 11:55] LABS: TSH w/ Reflex to FT4 1.22 uIU/mL (0.47-4.68)
[2025-05-04 15:44] LABS: Microalbumi Creatinin Ratio Ur 20.0 ug/mg CR (<30)
== END ==
PROVIDERS: Family Provider Family Medicine; PCP Family Medicine; Referring Provider Family Medicine; Visit Provider Family Medicine
DX: Z00.00 Encounter for general adult medical examination without abnormal findings (principal); G91.2 (Idiopathic) normal pressure hydrocephalus; R73.9 Hyperglycemia, unspecified; E78.5 Hyperlipidemia, unspecified; G93.89 Other specified disorders of brain; R29.6 Repeated falls; R26.89 Other abnormalities of gait and mobility; M47.816 Spondylosis without myelopathy or radiculopathy, lumbar region
CPT/HCPCS: 36415; 80053; 80061; 82043; 82570; 83036; 84443; 85025

== ENCOUNTER → 2025-05-18 08:15 | Outpatient (CLI) | payer MEDICARE, MEDICAID, SELFPAY ==
--- NOTE | 2025-05-18 08:16 | DI.US.S_ITS ---
PROCEDURE: US CAROTID DOPPLER BI
== END ==
LOC: US 08:16
PROVIDERS: Family Provider Family Medicine; PCP Family Medicine; Referring Provider Family Medicine; Visit Provider Family Medicine
DX: I65.23 Occlusion and stenosis of bilateral carotid arteries (principal)
CPT/HCPCS: 93880